=== PATIENT | male | born 1990 | race Caucasian/White ===

== ENCOUNTER 2017-10-04 17:56 | Emergency (ER) | payer OTHER ==
[~2017-10-04] VITALS: Ht 162.6 cm; Wt 50.0 kg
[~2017-10-04 17:56] MED LIST: AMYL1CAP63 PO; CLON0.5T4 PO; GABA-531 PO; INSLAN SQ; INSU100V SQ
[2017-10-04 18:12] LABS: GLUCOSE,POINT OF CARE 374 MG/DL (70-110)
[2017-10-04] MEDS ORDERED: AMLO-511 PO (18:12)
[2017-10-04] MEDS ORDERED: CEFTAROLINE 600 MG/D5W 250 ML IV ONE (19:00)
[2017-10-04] MEDS ORDERED: CLON1 PO (19:01)
[2017-10-04] MEDS ORDERED: GABA-533 PO (19:01)
[2017-10-04] MEDS ORDERED: ONDANSETRON HCL 4 MG/2 ML VIAL IVP ONE (19:15)
[2017-10-04] MEDS ORDERED: HYDROmorphone 2 MG/ML SYRINGE IVP ONE ×2 (19:15→20:45)
[2017-10-04 19:26] LABS: HEMATOCRIT 24.4 % (41-53); HEMOGLOBIN 7.9 g/dL (13.5-17.5); MEAN CORPUSCULAR HEMOGLOBIN 27.3 pg (26.0-34.0); MEAN CORPUSCULAR HGB CONC 32.1 G/dL (31.0-37.0); MEAN CORPUSCULAR VOLUME 85 fL (80-100); PLATELET COUNT (AUTO) 300 K/uL (150-450); RED BLOOD CELL COUNT(AUTO) 2.87 MIL/uL (4.50-5.90); RED CELL DISTRIBUTION WIDTH 14.2 % (11.5-14.5); WHITE BLOOD COUNT (AUTO) 20.4 K/uL (4.5-11.0)
[2017-10-04 19:38] LABS: ALBUMIN 2.2 g/dL (3.4-5.0); BILIRUBIN,TOTAL 0.2 mg/dL (0.1-1.0); CALCIUM, TOTAL 8.1 mg/dL (8.8-10.5); CREATININE 2.81 mg/dL (0.60-1.30); POTASSIUM 4.7 mmol/L (3.5-5.1)
[2017-10-04 19:46] LABS: BAND NEUTROPHILS % (MANUAL) 12 % (1-5); LYMPHOCYTES % (MANUAL) 2 % (22-44); TOTAL CELLS COUNTED 100
[2017-10-04 19:47] LABS: RBC MORPHOLOGY COMMENT NORMAL RBC MORPH
[2017-10-04] MEDS ORDERED: INSULIN REGULAR, HUMAN 100 UNITS/ML SQ ONE (20:00)
[2017-10-04] MEDS ORDERED: ONDANSETRON HCL 4 MG/2 ML VIAL IVP PRN ×2 (20:00→22:00)
[2017-10-04] MEDS ORDERED: ACETAMINOPHEN 325 MG TABLET PO PRN ×2 (20:00→22:00)
[2017-10-04] MEDS ORDERED: 0.9% SODIUM CHLORIDE 10 ML SYRINGE IVP PRN (20:00)
[2017-10-04] MEDS ORDERED: SODIUM CHLORIDE 0.9% 1,000 ML IV ONE ×2 (20:00→20:15)
[2017-10-04 21:27] LABS: GLUCOSE COMMENT 1 Doctor Notified; GLUCOSE,POINT OF CARE 346 MG/DL (70-110)
[2017-10-04] MEDS ORDERED: VANCOMYCIN HCL 1 GM/D5% WATER 200 ML IV ONE (21:30)
[2017-10-04] MEDS ORDERED: PIPERACILLIN/TAZO 3.375 GM/D5W 50 ML IV ONE (21:30)
[2017-10-04] MEDS ORDERED: ALBUTEROL SULFATE 2.5 MG/0.5 ML NEB SOLUTION NEB PRN (22:00)
[2017-10-04] MEDS ORDERED: HYDROmorphone 2 MG/ML SYRINGE IVP PRN (22:00)
[2017-10-04] MEDS ORDERED: MAGNESIUM HYDROXIDE SUSPENSION 30 ML UDCUP PO PRN (22:00)
[2017-10-04] MEDS ORDERED: INSULIN ASPART 100 UNITS/ML SQ PRN (22:00)
[2017-10-04] MEDS ORDERED: INSULIN DETEMIR 100 UNITS/ML SQ SCH (22:00)
[2017-10-04] MEDS ORDERED: DEXTROSE 50%-WATER 25 GM/50 ML SYRINGE IVP PRN (22:00)
[2017-10-04] MEDS ORDERED: SODIUM CHLORIDE 0.9% 1,000 ML IV SCH (22:15)
[2017-10-04 22:23] LABS: GLUCOSE,POINT OF CARE 210 MG/DL (70-110)
[2017-10-04] MEDS ORDERED: CLINDAMYCIN 600 MG/D5% WATER 50 ML IV ONE (23:30)
[2017-10-04] MEDS ORDERED: MEROPENEM IVP ONE (23:30)
[2017-10-04] MEDS ORDERED: MEROPENEM 1 GM in SODIUM CHLORIDE 0.9% 100 ML IV ONE (23:45)
[2017-10-05 00:23] LABS: GLUCOSE,POINT OF CARE 88 MG/DL (70-110)
[2017-10-05 01:45] VITALS: BP 138/72
[2017-10-05] MEDS ORDERED: HEPARIN SODIUM,PORCINE 5,000 UNITS/ML VIAL SQ SCH (09:00)
[2017-10-05] MEDS ORDERED: PANTOPRAZOLE SODIUM 40 MG DR TABLET PO SCH (09:00)
[2017-10-05] MEDS ORDERED: MULTIVITAMINS WITH MINERALS, THERAPEUTIC TABLET PO SCH (09:00)
[2017-10-05] MEDS ORDERED: DOCUSATE SODIUM 100 MG CAPSULE PO SCH (09:00)
== END 2017-10-05 01:54 | disposition short-term general hospital (02) ==
LOC: EMS 17:57 → UNDOADMIN 20:00 → 4E 20:00 → EMS 10-05 01:54
DX: L03.211 Cellulitis of face (principal); R11.0 Nausea; R13.10 Dysphagia, unspecified; E11.40 Type 2 diabetes mellitus with diabetic neuropathy, unspecified; Z79.4 Long term (current) use of insulin; Z88.5 Allergy status to narcotic agent
CPT/HCPCS: 36415; 70490; 80053; 82962; 85025; 87040; 96365; 96366; 96367; 96368; 96372; 96374; 96375; 96376; 99285; J0712; J1170; J1815 ×2; J2185; J2405; J2543; J3370; J3490; J7030; J7050

== ENCOUNTER 2017-11-23 16:13 | Emergency (ER) | payer OTHER ==
[~2017-11-23] VITALS: Ht 162.6 cm; Wt 50.0 kg
[~2017-11-23 16:13] MED LIST changes: +AMLO-511 PO; -AMYL1CAP63 PO; -CLON0.5T4 PO; +CLON1 PO; -GABA-531 PO; +GABA-533 PO
[2017-11-23 16:37] LABS: GLUCOSE,POINT OF CARE 467 MG/DL (70-110)
[2017-11-23] MEDS ORDERED: SODIUM CHLORIDE 0.9% 1,000 ML IV ONE ×2 (17:30)
[2017-11-23] MEDS ORDERED: AmLODIPine BESYLATE 5 MG TABLET PO ONE (17:30)
[2017-11-23] MEDS ORDERED: ONDANSETRON HCL 4 MG/2 ML VIAL IVP ONE (17:30)
[2017-11-23 18:00] LABS: BASOPHILS % (AUTO) 0.9 % (0.0-2.0); EOSINOPHILS % (AUTO) 0.1 % (1.0-6.0); HEMATOCRIT 28.9 % (41-53); HEMOGLOBIN 9.7 g/dL (13.5-17.5); LYMPHOCYTES # (AUTO) 0.8 K/uL (1.0-4.8); MEAN CORPUSCULAR HEMOGLOBIN 27.4 pg (26.0-34.0); MEAN CORPUSCULAR HGB CONC 33.4 G/dL (31.0-37.0); MEAN CORPUSCULAR VOLUME 82 fL (80-100); MONOCYTES # (AUTO) 0.4 K/uL (0.1-1.0); MONOCYTES % (AUTO) 6.5 % (2.0-9.0); NEUTROPHILS # (AUTO) 4.7 K/uL (1.8-7.7); NEUTROPHILS % (AUTO) 78.5 % (40.0-70.0); PLATELET COUNT (AUTO) 337 K/uL (150-450); RED BLOOD CELL COUNT(AUTO) 3.53 MIL/uL (4.50-5.90); RED CELL DISTRIBUTION WIDTH 14.3 % (11.5-14.5)
[2017-11-23 18:11] LABS: ALANINE AMINOTRANSFERASE 17 U/L (12-78); ALBUMIN 2.3 g/dL (3.4-5.0); ALKALINE PHOSPHATASE 210 U/L (46-116); ANION GAP 6 mmol/L (8-16); ASPARTATE AMINOTRANSFERASE 22 U/L (15-37); BILIRUBIN,TOTAL 0.2 mg/dL (0.1-1.0); CALCIUM, TOTAL 8.6 mg/dL (8.8-10.5); CARBON DIOXIDE 28 mmol/L (22-29); CHLORIDE 94 mmol/L (98-107); CREATININE 2.79 mg/dL (0.60-1.30); GLOMERULAR FILTR. RATE CALC 27 mL/min (>60); LIPASE 26 U/L (73-393); POTASSIUM 3.7 mmol/L (3.5-5.1); SODIUM SERUM 128 mmol/L (136-145); TOTAL PROTEIN, SERUM 7.9 g/dL (6.4-8.2); UREA NITROGEN, BLOOD 29 mg/dL (7-18)
[2017-11-23 18:14] LABS: GLUCOSE,RANDOM 440 mg/dL (70-110)
[2017-11-23 18:49] LABS: LACTIC ACID 2.5 mmol/L (0.4-2.0)
[2017-11-23] MEDS ORDERED: FentaNYL CITRATE-PF 100 MCG/2 ML VIAL IVP ONE (20:15)
[2017-11-23 20:16] LABS: APPEARANCE,URINE CLOUDY (CLEAR); BILIRUBIN,URINE NEGATIVE (NEGATIVE); GLUCOSE, URINE (UA) >=1000 mg/dL (NEGATIVE); KETONES,URINE NEGATIVE (NEGATIVE); LEUKOCYTE ESTERASE ,URINE TRACE (NEGATIVE); NITRATE,URINE NEGATIVE (NEGATIVE); OCCULT BLOOD,URINE MODERATE (NEGATIVE); PROTEIN,URINE SEE CONFIRM (NEGATIVE); UROBILINOGEN,URINE 0.2 mg/dL (<=1.0)
[2017-11-23 20:25] LABS: BACTERIA,URINE Few /HPF (None Seen); YEAST,URINE Many /HPF (None Seen)
[2017-11-23 20:27] LABS: SQUAMOUS EPITHELIAL CELL,UR Few /LPF (None Seen); SULFOSALICYLIC ACID,URINE 3+ (Negative)
[2017-11-23 20:45] LABS: CALCIUM, TOTAL 8.1 mg/dL (8.8-10.5); CREATININE 2.14 mg/dL (0.60-1.30); POTASSIUM 3.4 mmol/L (3.5-5.1)
[2017-11-23 20:51] VITALS: BP_DIAS 123
[2017-11-23 20:52] LABS: ALBUMIN 2.1 g/dL (3.4-5.0); BILIRUBIN,TOTAL 0.2 mg/dL (0.1-1.0); TOTAL PROTEIN, SERUM 7.2 g/dL (6.4-8.2)
[2017-11-23 20:53] LABS: LACTIC ACID 0.9 mmol/L (0.4-2.0)
[2017-11-23 20:57] LABS: GLUCOSE,POINT OF CARE 266 MG/DL (70-110)
[2017-11-23] MEDS ORDERED: CEPHALEXIN MONOHYDRATE 500 MG CAPSULE PO ONE (21:00)
[2017-11-23 21:17] VITALS: BP_SYST 188
== END 2017-11-23 21:34 | disposition home or self-care (01) ==
LOC: EMS 16:15
DX: E10.22 Type 1 diabetes mellitus with diabetic chronic kidney disease (principal); N18.9 Chronic kidney disease, unspecified; E10.65 Type 1 diabetes mellitus with hyperglycemia; N39.0 Urinary tract infection, site not specified; R03.0 Elevated blood-pressure reading, without diagnosis of hypertension; I95.9 Hypotension, unspecified; G47.00 Insomnia, unspecified; G62.9 Polyneuropathy, unspecified; Z88.5 Allergy status to narcotic agent; Z79.899 Other long term (current) drug therapy
CPT/HCPCS: 36415; 80053; 81001; 82948; 82962; 83605; 83690; 85025; 87086; 87106; 96374; 96375; 99284; J2405; J3010; J7030

== ENCOUNTER 2017-12-26 15:57 | Emergency (ER) | payer OTHER ==
[~2017-12-26] VITALS: Ht 162.6 cm; Wt 54.5 kg
[~2017-12-26 15:57] MED LIST changes: +HYDR-309 PO; +MIDO2.5T10 PO
[2017-12-26] MEDS ORDERED: LABETALOL HCL 5 MG/ML 20 ML VIAL IVP ONE (16:45)
[2017-12-26] MEDS ORDERED: DEXTROSE 5%-0.9% SODIUM CHL 1,000 ML IV ONE (16:45)
[2017-12-26] MEDS ORDERED: ONDANSETRON HCL 4 MG/2 ML VIAL IVP ONE (16:45)
[2017-12-26] MEDS ORDERED: AmLODIPine BESYLATE 5 MG TABLET PO ONE (16:45)
[2017-12-26] MEDS ORDERED: HydrALAZINE HCL 20 MG/ML VIAL IVP ONE (17:00)
[2017-12-26 17:06] LABS: BASOPHILS % (AUTO) 0.5 % (0.0-2.0); EOSINOPHILS % (AUTO) 0.4 % (1.0-6.0); HEMATOCRIT 32.8 % (41-53); HEMOGLOBIN 10.7 g/dL (13.5-17.5); LYMPHOCYTES # (AUTO) 0.8 K/uL (1.0-4.8); LYMPHOCYTES % (AUTO) 7.1 % (22.0-44.0); MEAN CORPUSCULAR HEMOGLOBIN 26.4 pg (26.0-34.0); MEAN CORPUSCULAR HGB CONC 32.6 G/dL (31.0-37.0); MEAN CORPUSCULAR VOLUME 81 fL (80-100); MONOCYTES # (AUTO) 0.4 K/uL (0.1-1.0); MONOCYTES % (AUTO) 3.5 % (2.0-9.0); NEUTROPHILS # (AUTO) 10.3 K/uL (1.8-7.7); PLATELET COUNT (AUTO) 199 K/uL (150-450); RED BLOOD CELL COUNT(AUTO) 4.05 MIL/uL (4.50-5.90); RED CELL DISTRIBUTION WIDTH 15.4 % (11.5-14.5)
[2017-12-26 17:13] LABS: CALCIUM, TOTAL 8.3 mg/dL (8.8-10.5); CREATININE 2.04 mg/dL (0.60-1.30); POTASSIUM 4.9 mmol/L (3.5-5.1)
[2017-12-26 17:19] LABS: ALBUMIN 2.1 g/dL (3.4-5.0); BILIRUBIN,TOTAL 0.2 mg/dL (0.1-1.0); TOTAL PROTEIN, SERUM 7.1 g/dL (6.4-8.2)
[2017-12-26 17:29] LABS: NEUTROPHILS % (AUTO) 88.5 % (40.0-70.0)
[2017-12-26] MEDS ORDERED: MORPHINE SULFATE 4 MG/ML SYRINGE IVP ONE (19:30)
[2017-12-26 19:39] VITALS: BP 146/99
== END 2017-12-26 19:51 | disposition home or self-care (01) ==
LOC: EMS 16:02
DX: R41.82 Altered mental status, unspecified (principal); E10.65 Type 1 diabetes mellitus with hyperglycemia; I12.9 Hypertensive chronic kidney disease with stage 1 through stage 4 chronic kidney disease, or unspecified chronic kidney disease; E10.22 Type 1 diabetes mellitus with diabetic chronic kidney disease; N18.9 Chronic kidney disease, unspecified; E11.40 Type 2 diabetes mellitus with diabetic neuropathy, unspecified; Z79.4 Long term (current) use of insulin; Z88.0 Allergy status to penicillin; Z91.14 Patient's other noncompliance with medication regimen
CPT/HCPCS: 36415; 80053; 85025; 93005; 96361; 96374; 96375; 99285; J0360; J2270; J2405; J3490; J7042

== ENCOUNTER 2018-01-02 11:57 | Emergency (ER) | payer OTHER ==
[~2018-01-02] VITALS: Ht 162.6 cm; Wt 54.5 kg
[2018-01-02 12:12] LABS: GLUCOSE,POINT OF CARE 98 MG/DL (70-110)
[2018-01-02 12:28] VITALS: BP 178/122
[2018-01-02 12:59] LABS: BASOPHILS % (AUTO) 0.8 % (0.0-2.0); EOSINOPHILS % (AUTO) 0.3 % (1.0-6.0); HEMATOCRIT 32.8 % (41-53); LYMPHOCYTES # (AUTO) 1.4 K/uL (1.0-4.8); MEAN CORPUSCULAR HEMOGLOBIN 26.7 pg (26.0-34.0); MEAN CORPUSCULAR HGB CONC 33.7 G/dL (31.0-37.0); MEAN CORPUSCULAR VOLUME 79 fL (80-100); MONOCYTES # (AUTO) 0.4 K/uL (0.1-1.0); MONOCYTES % (AUTO) 4.5 % (2.0-9.0); NEUTROPHILS # (AUTO) 6.2 K/uL (1.8-7.7); NEUTROPHILS % (AUTO) 77.4 % (40.0-70.0); PLATELET COUNT (AUTO) 405 K/uL (150-450); RED BLOOD CELL COUNT(AUTO) 4.14 MIL/uL (4.50-5.90); RED CELL DISTRIBUTION WIDTH 15.9 % (11.5-14.5)
[2018-01-02] MEDS ORDERED: IBUPROFEN 400 MG TABLET PO ONE (13:00)
[2018-01-02 13:09] LABS: CALCIUM, TOTAL 8.3 mg/dL (8.8-10.5); CREATININE 2.01 mg/dL (0.60-1.30); POTASSIUM 3.9 mmol/L (3.5-5.1)
[2018-01-02 13:10] LABS: ALBUMIN 2.3 g/dL (3.4-5.0); BILIRUBIN,TOTAL 0.2 mg/dL (0.1-1.0); TOTAL PROTEIN, SERUM 7.2 g/dL (6.4-8.2)
== END 2018-01-02 14:40 | disposition left against medical advice (07) ==
LOC: EMS 12:01
DX: R22.0 Localized swelling, mass and lump, head (principal); I12.9 Hypertensive chronic kidney disease with stage 1 through stage 4 chronic kidney disease, or unspecified chronic kidney disease; E11.22 Type 2 diabetes mellitus with diabetic chronic kidney disease; N18.9 Chronic kidney disease, unspecified; F32.9 Major depressive disorder, single episode, unspecified; Z88.5 Allergy status to narcotic agent; Z79.899 Other long term (current) drug therapy; Z79.4 Long term (current) use of insulin
CPT/HCPCS: 82948; 82962; 99284

== ENCOUNTER 2018-01-14 06:39 | Emergency (ER) | payer OTHER ==
[~2018-01-14] VITALS: Ht 165.1 cm; Wt 63.6 kg
[2018-01-14] MEDS ORDERED: GLUCAGON,HUMAN RECOMBINANT 1 MG VIAL ONE (06:50)
[2018-01-14] MEDS ORDERED: DEXTROSE 50%-WATER 25 GM/50 ML SYRINGE IVP ONE (07:00)
[2018-01-14 07:14] LABS: BASOPHILS % (AUTO) 0.7 % (0.0-2.0); EOSINOPHILS % (AUTO) 0.2 % (1.0-6.0); HEMATOCRIT 28.6 % (41-53); HEMOGLOBIN 9.4 g/dL (13.5-17.5); LYMPHOCYTES # (AUTO) 0.7 K/uL (1.0-4.8); LYMPHOCYTES % (AUTO) 8.3 % (22.0-44.0); MEAN CORPUSCULAR HEMOGLOBIN 26.8 pg (26.0-34.0); MEAN CORPUSCULAR HGB CONC 32.9 G/dL (31.0-37.0); MEAN CORPUSCULAR VOLUME 81 fL (80-100); MONOCYTES # (AUTO) 0.4 K/uL (0.1-1.0); MONOCYTES % (AUTO) 5.1 % (2.0-9.0); NEUTROPHILS # (AUTO) 7.6 K/uL (1.8-7.7); PLATELET COUNT (AUTO) 382 K/uL (150-450); RED BLOOD CELL COUNT(AUTO) 3.52 MIL/uL (4.50-5.90); RED CELL DISTRIBUTION WIDTH 16.3 % (11.5-14.5)
[2018-01-14 07:19] LABS: NEUTROPHILS % (AUTO) 85.7 % (40.0-70.0)
[2018-01-14 07:29] LABS: ANION GAP 7 mmol/L (8-16); CALCIUM, TOTAL 8.5 mg/dL (8.8-10.5); CARBON DIOXIDE 25 mmol/L (22-29); CHLORIDE 110 mmol/L (98-107); CREATININE 2.23 mg/dL (0.60-1.30); GLOMERULAR FILTR. RATE CALC 35 mL/min (>60); GLUCOSE,RANDOM 61 mg/dL (70-110); POTASSIUM 4.9 mmol/L (3.5-5.1); SODIUM SERUM 142 mmol/L (136-145); UREA NITROGEN, BLOOD 28 mg/dL (7-18)
[2018-01-14 07:34] LABS: ALANINE AMINOTRANSFERASE 28 U/L (12-78); ALBUMIN 1.8 g/dL (3.4-5.0); ALKALINE PHOSPHATASE 229 U/L (46-116); ASPARTATE AMINOTRANSFERASE 23 U/L (15-37); BILIRUBIN,TOTAL 0.2 mg/dL (0.1-1.0); LIPASE 28 U/L (73-393); TOTAL PROTEIN, SERUM 6.5 g/dL (6.4-8.2)
[2018-01-14 07:35] LABS: AMPHET/METH SCREEN,URINE NEGATIVE (NEGATIVE); BARBITURATE SCREEN, URINE NEGATIVE (NEGATIVE); BENZODIAZEPINES SCREEN,URINE NEGATIVE (NEGATIVE); CANNABINOID SCREEN,URINE NEGATIVE (NEGATIVE); COCAINE SCREEN,URINE NEGATIVE (NEGATIVE); METHADONE SCREEN, URINE NEGATIVE (NEGATIVE); OPIATE SCREEN,URINE POSITIVE (NEGATIVE)
[2018-01-14 07:36] LABS: PHENCYCLIDINE SCREEN,URINE NEGATIVE (NEGATIVE)
[2018-01-14] MEDS ORDERED: ONDANSETRON HCL 4 MG/2 ML VIAL IVP ONE (07:45)
[2018-01-14] MEDS ORDERED: KETOROLAC TROMETHAMINE 30 MG/ML VIAL IVP ONE (07:45)
[2018-01-14 08:48] LABS: GLUCOSE,POINT OF CARE 191 MG/DL (70-110)
[2018-01-14 08:48] LABS: GLUCOSE,POINT OF CARE 181 MG/DL (70-110)
[2018-01-14] MEDS ORDERED: OxyCODONE HCL/ACETAMINOPHEN 5-325 MG TABLET PO ONE (09:30)
[2018-01-14 10:02] LABS: GLUCOSE,POINT OF CARE 190 MG/DL (70-110)
[2018-01-14 11:12] LABS: GLUCOSE,POINT OF CARE 110 MG/DL (70-110)
[2018-01-14 11:22] VITALS: BP 191/110
== END 2018-01-14 12:23 | disposition home or self-care (01) ==
LOC: EMS 06:40
DX: E11.649 Type 2 diabetes mellitus with hypoglycemia without coma (principal); R41.82 Altered mental status, unspecified; N28.9 Disorder of kidney and ureter, unspecified; I10 Essential (primary) hypertension; R10.9 Unspecified abdominal pain; G89.29 Other chronic pain; Z79.4 Long term (current) use of insulin; Z88.5 Allergy status to narcotic agent
CPT/HCPCS: 36415; 80053; 80307; 82962; 83690; 85025; 96374; 96375; 99284; G0480; J1885; J2405; J1610

== ENCOUNTER 2018-04-07 23:30 | Emergency (ER) | payer OTHER ==
[~2018-04-07] VITALS: Ht 162.6 cm; Wt 56.8 kg
[~2018-04-07 23:30] MED LIST changes: -MIDO2.5T10 PO; +MIDO2.5T15 PO
[2018-04-07] MEDS ORDERED: INSLAN SQ (23:43)
[2018-04-07 23:53] LABS: GLUCOSE,POINT OF CARE 246 MG/DL (70-110)
[2018-04-08 00:49] VITALS: BP 137/98
[2018-04-08] MEDS ORDERED: OxyCODONE HCL/ACETAMINOPHEN 5-325 MG TABLET PO ONE (02:00)
== END 2018-04-08 02:33 | disposition home or self-care (01) ==
LOC: EMS 23:32
DX: N50.89 Other specified disorders of the male genital organs (principal); N50.82 Scrotal pain; F32.9 Major depressive disorder, single episode, unspecified; E11.9 Type 2 diabetes mellitus without complications; I10 Essential (primary) hypertension; Z79.4 Long term (current) use of insulin; Z79.899 Other long term (current) drug therapy; Z88.6 Allergy status to analgesic agent
CPT/HCPCS: 76870; 99284

== ENCOUNTER 2018-04-08 15:18 | Inpatient (IN) | payer OTHER ==
[~2018-04-08] VITALS: Ht 162.6 cm; Wt 51.3 kg
[2018-04-08 15:28] LABS: GLUCOSE,POINT OF CARE 555 MG/DL (70-110)
[2018-04-08] MEDS ORDERED: TraMADol HCL 50 MG TABLET PO ONE (16:15)
[2018-04-08 16:28] LABS: BASOPHILS % (AUTO) 0.7 % (0.0-2.0); EOSINOPHILS % (AUTO) 0.6 % (1.0-6.0); HEMATOCRIT 22.4 % (41-53); HEMOGLOBIN 7.4 g/dL (13.5-17.5); LYMPHOCYTES # (AUTO) 0.8 K/uL (1.0-4.8); LYMPHOCYTES % (AUTO) 14.8 % (22.0-44.0); MEAN CORPUSCULAR HEMOGLOBIN 29.2 pg (26.0-34.0); MEAN CORPUSCULAR VOLUME 89 fL (80-100); MONOCYTES # (AUTO) 0.4 K/uL (0.1-1.0); MONOCYTES % (AUTO) 8.1 % (2.0-9.0); NEUTROPHILS # (AUTO) 4.1 K/uL (1.8-7.7); NEUTROPHILS % (AUTO) 75.8 % (40.0-70.0); PLATELET COUNT (AUTO) 328 K/uL (150-450); RED BLOOD CELL COUNT(AUTO) 2.53 MIL/uL (4.50-5.90); RED CELL DISTRIBUTION WIDTH 14.6 % (11.5-14.5)
[2018-04-08 16:34] LABS: PROTHROMBIN TIME 10.2 SEC (9.4-11.6)
[2018-04-08 16:57] LABS: ALBUMIN 1.9 g/dL (3.4-5.0); BILIRUBIN,TOTAL 0.1 mg/dL (0.1-1.0); CALCIUM, TOTAL 7.4 mg/dL (8.8-10.5); CKMB RELATIVE INDEX 5.7 % (0.0-4.0); CREATINE KINASE MB 5.5 ng/mL (0-5); CREATININE 2.65 mg/dL (0.60-1.30); POTASSIUM 5.4 mmol/L (3.5-5.1); TOTAL PROTEIN, SERUM 6.4 g/dL (6.4-8.2)
[2018-04-08] MEDS ORDERED: INSULIN REGULAR, HUMAN 100 UNITS/ML IVP ONE (17:30)
[2018-04-08] MEDS ORDERED: SODIUM CHLORIDE 0.9% 250 ML IV ONE (18:10)
[2018-04-08] MEDS ORDERED: KETOROLAC TROMETHAMINE 30 MG/ML VIAL IVP ONE (18:15)
[2018-04-08] MEDS ORDERED: CloNIDine HCL 0.2 MG TABLET PO ONE (18:45)
[2018-04-08] MEDS ORDERED: HYDROCODONE/ACETAMINOPHEN 5-325 MG TABLET PO ONE (18:45)
[2018-04-08] MEDS ORDERED: 0.9% SODIUM CHLORIDE 10 ML SYRINGE IVP PRN ×2 (19:30→23:30)
[2018-04-08] MEDS ORDERED: ONDANSETRON HCL 4 MG/2 ML VIAL IVP PRN (19:30)
[2018-04-08] MEDS ORDERED: ACETAMINOPHEN 325 MG TABLET PO PRN ×2 (19:30→23:30)
[2018-04-08] MEDS ORDERED: FentaNYL CITRATE-PF 100 MCG/2 ML VIAL IVP ONE (19:45)
[2018-04-08] MEDS ORDERED: FentaNYL CITRATE-PF 100 MCG/2 ML VIAL IVP PRN (21:45)
[2018-04-08 22:30] VITALS: BP 149/101
[2018-04-08] MEDS ORDERED: ZOLPIDEM TARTRATE 5 MG TABLET PO PRN (23:30)
[2018-04-09] MEDS ORDERED: DEXTROSE 50%-WATER 25 GM/50 ML SYRINGE IVP PRN ×2 (00:15→14:00)
[2018-04-09] MEDS ORDERED: INSULIN LISPRO 100 UNITS/ML SQ PRN ×2 (00:15→13:45)
[2018-04-09] MEDS: FentaNYL CITRATE-PF 100 MCG/2 ML VIAL IVP PRN ×5 (02:43→20:46)
[2018-04-09 04:19] VITALS: BP 132/80
[2018-04-09 06:43] LABS: BASOPHILS % (AUTO) 0.8 % (0.0-2.0); EOSINOPHILS % (AUTO) 1.2 % (1.0-6.0); HEMATOCRIT 21.9 % (41-53); HEMOGLOBIN 7.6 g/dL (13.5-17.5); LYMPHOCYTES # (AUTO) 1.4 K/uL (1.0-4.8); LYMPHOCYTES % (AUTO) 19.7 % (22.0-44.0); MEAN CORPUSCULAR HEMOGLOBIN 29.7 pg (26.0-34.0); MEAN CORPUSCULAR HGB CONC 34.6 G/dL (31.0-37.0); MEAN CORPUSCULAR VOLUME 86 fL (80-100); MONOCYTES # (AUTO) 0.6 K/uL (0.1-1.0); MONOCYTES % (AUTO) 9.1 % (2.0-9.0); NEUTROPHILS # (AUTO) 4.9 K/uL (1.8-7.7); NEUTROPHILS % (AUTO) 69.2 % (40.0-70.0); PLATELET COUNT (AUTO) 346 K/uL (150-450); RED BLOOD CELL COUNT(AUTO) 2.55 MIL/uL (4.50-5.90)
[2018-04-09 07:01] LABS: ALBUMIN 1.8 g/dL (3.4-5.0); BILIRUBIN,TOTAL 0.2 mg/dL (0.1-1.0); CALCIUM, TOTAL 7.8 mg/dL (8.8-10.5); CREATININE 2.58 mg/dL (0.60-1.30); MAGNESIUM 2.1 mg/dL (1.80-2.40); POTASSIUM 5.4 mmol/L (3.5-5.1); TOTAL PROTEIN, SERUM 6.1 g/dL (6.4-8.2)
[2018-04-09 07:33] VITALS: BP 158/108
[2018-04-09] MEDS: PANTOPRAZOLE SODIUM 40 MG DR TABLET PO SCH (08:52)
[2018-04-09] MEDS: AmLODIPine BESYLATE 5 MG TABLET PO SCH (08:52)
[2018-04-09] MEDS: GABAPENTIN 400 MG CAPSULE PO SCH ×3 (08:52→20:46)
[2018-04-09] MEDS: MIDODRINE HCL 2.5 MG TABLET PO SCH ×2 (08:53→20:29)
[2018-04-09] MEDS: INSULIN GLARGINE,HUM.REC.ANLOG 100 UNITS/ML SQ SCH ×2 (08:55→20:48)
[2018-04-09 09:24] LABS: GLUCOMETER DEV NAME(LOC) 5N 2S; GLUCOSE,POINT OF CARE 40 MG/DL (70-110)
[2018-04-09 09:24] LABS: GLUCOMETER DEV NAME(LOC) 5N 2S; GLUCOSE,POINT OF CARE 122 MG/DL (70-110)
[2018-04-09 09:24] LABS: GLUCOMETER DEV NAME(LOC) 5N 2S; GLUCOSE,POINT OF CARE 211 MG/DL (70-110)
[2018-04-09 09:24] LABS: GLUCOMETER DEV NAME(LOC) 5N 1P; GLUCOSE,POINT OF CARE 112 MG/DL (70-110)
[2018-04-09 11:20] VITALS: BP 140/92
[2018-04-09 15:30] VITALS: BP 142/92
[2018-04-09] MEDS: INSULIN LISPRO 100 UNITS/ML SQ PRN (17:32)
[2018-04-09 18:50] LABS: GLUCOMETER DEV NAME(LOC) 5N 2S; GLUCOSE,POINT OF CARE 179 MG/DL (70-110)
[2018-04-09 18:50] LABS: GLUCOMETER DEV NAME(LOC) 5N 2S; GLUCOSE,POINT OF CARE 169 MG/DL (70-110)
[2018-04-09 19:42] VITALS: BP 145/91
[2018-04-09 22:37] LABS: APPEARANCE,URINE CLEAR (CLEAR); BILIRUBIN,URINE NEGATIVE (NEGATIVE); GLUCOSE, URINE (UA) 100 mg/dL (NEGATIVE); KETONES,URINE NEGATIVE (NEGATIVE); LEUKOCYTE ESTERASE ,URINE SMALL (NEGATIVE); NITRATE,URINE NEGATIVE (NEGATIVE); OCCULT BLOOD,URINE MODERATE (NEGATIVE); PROTEIN,URINE POS 1+ (NEGATIVE); UROBILINOGEN,URINE 0.2 mg/dL (<=1.0)
[2018-04-09 22:38] LABS: CREATININE,URINE RANDOM 36.5 mg/dL (30.0-125.0); SODIUM,URINE RANDOM 95 mmol/l (20-110); UREA NITROGEN,URINE RANDOM 297 mg/dL (350-1000)
[2018-04-09 23:04] LABS: GLUCOMETER DEV NAME(LOC) 5N 1P; GLUCOSE,POINT OF CARE 133 MG/DL (70-110)
[2018-04-10] VITALS (14 sets, daily range): BP systolic 135–196; BP diastolic 88–127
[2018-04-10] MEDS: FentaNYL CITRATE-PF 100 MCG/2 ML VIAL IVP PRN ×3 (01:13→09:37)
[2018-04-10 01:44] LABS: BACTERIA,URINE Few /HPF (None Seen); RBC,URINE 0-2 /HPF (0-2)
[2018-04-10 01:45] LABS: SQUAMOUS EPITHELIAL CELL,UR Few /LPF (None Seen)
[2018-04-10] MEDS: INSULIN LISPRO 100 UNITS/ML SQ PRN ×3 (05:42→21:48)
[2018-04-10 06:18] LABS: CALCIUM, TOTAL 7.4 mg/dL (8.8-10.5); CREATININE 2.7 mg/dL (0.60-1.30); MAGNESIUM 2.1 mg/dL (1.80-2.40)
[2018-04-10 06:20] LABS: BASOPHILS % (AUTO) 0.5 % (0.0-2.0); HEMATOCRIT 21.3 % (41-53); HEMOGLOBIN 7.3 g/dL (13.5-17.5); LYMPHOCYTES # (AUTO) 0.9 K/uL (1.0-4.8); MEAN CORPUSCULAR HEMOGLOBIN 29.7 pg (26.0-34.0); MEAN CORPUSCULAR HGB CONC 34.3 G/dL (31.0-37.0); MEAN CORPUSCULAR VOLUME 87 fL (80-100); MONOCYTES # (AUTO) 0.8 K/uL (0.1-1.0); MONOCYTES % (AUTO) 9.1 % (2.0-9.0); NEUTROPHILS # (AUTO) 6.9 K/uL (1.8-7.7); NEUTROPHILS % (AUTO) 79.4 % (40.0-70.0); PLATELET COUNT (AUTO) 368 K/uL (150-450); RED BLOOD CELL COUNT(AUTO) 2.46 MIL/uL (4.50-5.90); RED CELL DISTRIBUTION WIDTH 14.6 % (11.5-14.5)
[2018-04-10 07:17] LABS: POTASSIUM 6.9 mmol/L (3.5-5.1)
[2018-04-10] MEDS ORDERED: SODIUM POLYSTYRENE SULFONATE 15 GM/60 ML SUSPENSION BOTTLE PO ONE (07:45)
[2018-04-10] MEDS: GABAPENTIN 400 MG CAPSULE PO SCH ×3 (08:06→21:42)
[2018-04-10] MEDS: PANTOPRAZOLE SODIUM 40 MG DR TABLET PO SCH (08:06)
[2018-04-10] MEDS: MIDODRINE HCL 2.5 MG TABLET PO SCH (08:06)
[2018-04-10] MEDS: AMYLASE/LIPASE/PROTEASE 30/6/19 MU DR CAPSULE PO SCH ×3 (08:06→16:42)
[2018-04-10] MEDS: AmLODIPine BESYLATE 5 MG TABLET PO SCH (08:07)
[2018-04-10] MEDS: INSULIN GLARGINE,HUM.REC.ANLOG 100 UNITS/ML SQ SCH (08:09)
[2018-04-10] MEDS: ONDANSETRON HCL 4 MG/2 ML VIAL IVP PRN ×2 (08:54→15:54)
[2018-04-10 10:28] LABS: GLUCOSE,POINT OF CARE 219 MG/DL (70-110)
[2018-04-10 11:23] LABS: GLUCOMETER DEV NAME(LOC) 5N 1P; GLUCOSE,POINT OF CARE 81 MG/DL (70-110)
[2018-04-10 11:55] LABS: GLUCOMETER DEV NAME(LOC) 5N 1P; GLUCOSE,POINT OF CARE 73 MG/DL (70-110)
[2018-04-10] MEDS ORDERED: SODIUM POLYSTYRENE SULFONATE 15 GM/60 ML SUSPENSION BOTTLE PR ONE (12:45)
[2018-04-10] MEDS ORDERED: MORPHINE SULFATE 4 MG/ML SYRINGE IVP PRN (12:45)
[2018-04-10] MEDS ORDERED: HYDROmorphone 2 MG/ML SYRINGE IVP PRN (12:45)
[2018-04-10] MEDS: VITAMIN B COMP/VIT C/FOLIC ACID CAPSULE PO SCH (13:26)
[2018-04-10] MEDS ORDERED: SODIUM CHLORIDE 0.9% 250 ML IV ONE (15:52)
[2018-04-10] MEDS: HYDROmorphone 2 MG/ML SYRINGE IVP PRN ×2 (17:39→21:44)
[2018-04-10] MEDS ORDERED: FUROSEMIDE 40 MG/4 ML VIAL IVP ONE (21:15)
[2018-04-11] MEDS: HYDROmorphone 2 MG/ML SYRINGE IVP PRN ×5 (01:45→19:55)
[2018-04-11 03:18] LABS: GLUCOMETER DEV NAME(LOC) 5N 1P; GLUCOSE,POINT OF CARE 316 MG/DL (70-110)
[2018-04-11 03:18] LABS: GLUCOMETER DEV NAME(LOC) 5N 1P; GLUCOSE,POINT OF CARE 342 MG/DL (70-110)
[2018-04-11 05:48] VITALS: BP 196/127
[2018-04-11] MEDS: ONDANSETRON HCL 4 MG/2 ML VIAL IVP PRN ×2 (05:53→18:31)
[2018-04-11] MEDS ORDERED: LABETALOL HCL 5 MG/ML 20 ML VIAL IVP ONE (06:00)
[2018-04-11 06:52] LABS: BASOPHILS % (AUTO) 0.5 % (0.0-2.0); EOSINOPHILS % (AUTO) 1.1 % (1.0-6.0); HEMATOCRIT 24.3 % (41-53); HEMOGLOBIN 8.5 g/dL (13.5-17.5); LYMPHOCYTES # (AUTO) 1.1 K/uL (1.0-4.8); LYMPHOCYTES % (AUTO) 15.1 % (22.0-44.0); MEAN CORPUSCULAR HEMOGLOBIN 29.7 pg (26.0-34.0); MEAN CORPUSCULAR HGB CONC 34.8 G/dL (31.0-37.0); MEAN CORPUSCULAR VOLUME 85 fL (80-100); MONOCYTES # (AUTO) 0.8 K/uL (0.1-1.0); MONOCYTES % (AUTO) 10.5 % (2.0-9.0); NEUTROPHILS # (AUTO) 5.4 K/uL (1.8-7.7); NEUTROPHILS % (AUTO) 72.8 % (40.0-70.0); PLATELET COUNT (AUTO) 377 K/uL (150-450); RED BLOOD CELL COUNT(AUTO) 2.85 MIL/uL (4.50-5.90); RED CELL DISTRIBUTION WIDTH 14.4 % (11.5-14.5)
[2018-04-11 07:04] LABS: POTASSIUM 5.8 mmol/L (3.5-5.1)
[2018-04-11] MEDS: GABAPENTIN 400 MG CAPSULE PO SCH ×3 (07:58→19:55)
[2018-04-11] MEDS: AMYLASE/LIPASE/PROTEASE 30/6/19 MU DR CAPSULE PO SCH ×3 (07:58→16:12)
[2018-04-11] MEDS: PANTOPRAZOLE SODIUM 40 MG DR TABLET PO SCH (07:58)
[2018-04-11] MEDS: VITAMIN B COMP/VIT C/FOLIC ACID CAPSULE PO SCH (07:58)
[2018-04-11] MEDS: AmLODIPine BESYLATE 5 MG TABLET PO SCH (07:58)
[2018-04-11 08:40] VITALS: BP 144/102
[2018-04-11 11:19] LABS: BASOPHILS % (AUTO) 0.4 % (0.0-2.0); EOSINOPHILS % (AUTO) 0.4 % (1.0-6.0); HEMOGLOBIN 8.8 g/dL (13.5-17.5); LYMPHOCYTES % (AUTO) 10.7 % (22.0-44.0); MEAN CORPUSCULAR HEMOGLOBIN 29.2 pg (26.0-34.0); MEAN CORPUSCULAR HGB CONC 33.9 G/dL (31.0-37.0); MEAN CORPUSCULAR VOLUME 86 fL (80-100); MONOCYTES # (AUTO) 0.7 K/uL (0.1-1.0); MONOCYTES % (AUTO) 7.2 % (2.0-9.0); NEUTROPHILS # (AUTO) 7.6 K/uL (1.8-7.7); NEUTROPHILS % (AUTO) 81.3 % (40.0-70.0); PLATELET COUNT (AUTO) 405 K/uL (150-450); RED BLOOD CELL COUNT(AUTO) 3.02 MIL/uL (4.50-5.90); RED CELL DISTRIBUTION WIDTH 14.3 % (11.5-14.5)
[2018-04-11 11:25] LABS: CALCIUM, TOTAL 7.5 mg/dL (8.8-10.5); CREATININE 2.66 mg/dL (0.60-1.30)
[2018-04-11 11:34] LABS: POTASSIUM 6.5 mmol/L (3.5-5.1)
[2018-04-11 11:35] VITALS: BP 170/112
[2018-04-11] MEDS ORDERED: SODIUM POLYSTYRENE SULFONATE 15 GM/60 ML SUSPENSION BOTTLE PO ONE (11:45)
[2018-04-11] MEDS ORDERED: AmLODIPine BESYLATE 5 MG TABLET PO ONE (12:00)
[2018-04-11] MEDS: TERAZOSIN HCL 5 MG CAPSULE PO SCH (12:35)
[2018-04-11] MEDS: INSULIN LISPRO 100 UNITS/ML SQ PRN ×3 (12:41→21:25)
[2018-04-11 14:38] LABS: GLUCOMETER DEV NAME(LOC) 5N 2S; GLUCOSE,POINT OF CARE 243 MG/DL (70-110)
[2018-04-11 14:39] LABS: GLUCOMETER DEV NAME(LOC) 5N 2S; GLUCOSE,POINT OF CARE 342 MG/DL (70-110)
[2018-04-11 15:42] VITALS: BP 128/80
[2018-04-11 17:53] LABS: GLUCOMETER DEV NAME(LOC) 5N 1P; GLUCOSE,POINT OF CARE 82 MG/DL (70-110)
[2018-04-11 19:28] VITALS: BP 131/82
[2018-04-11 23:12] VITALS: BP 132/85
[2018-04-12] VITALS (7 sets, daily range): BP systolic 141–169; BP diastolic 97–111
[2018-04-12] MEDS: HYDROmorphone 2 MG/ML SYRINGE IVP PRN ×6 (00:16→21:56)
[2018-04-12 06:49] LABS: BASOPHILS % (AUTO) 0.5 % (0.0-2.0); EOSINOPHILS % (AUTO) 1.4 % (1.0-6.0); HEMOGLOBIN 8.2 g/dL (13.5-17.5); LYMPHOCYTES # (AUTO) 1.2 K/uL (1.0-4.8); LYMPHOCYTES % (AUTO) 15.6 % (22.0-44.0); MEAN CORPUSCULAR HEMOGLOBIN 29.7 pg (26.0-34.0); MEAN CORPUSCULAR HGB CONC 34.3 G/dL (31.0-37.0); MEAN CORPUSCULAR VOLUME 87 fL (80-100); MONOCYTES # (AUTO) 0.7 K/uL (0.1-1.0); MONOCYTES % (AUTO) 8.7 % (2.0-9.0); NEUTROPHILS # (AUTO) 5.7 K/uL (1.8-7.7); NEUTROPHILS % (AUTO) 73.8 % (40.0-70.0); PLATELET COUNT (AUTO) 345 K/uL (150-450); RED BLOOD CELL COUNT(AUTO) 2.77 MIL/uL (4.50-5.90); RED CELL DISTRIBUTION WIDTH 14.6 % (11.5-14.5)
[2018-04-12 07:20] LABS: ALBUMIN 1.7 g/dL (3.4-5.0); BILIRUBIN,TOTAL 0.2 mg/dL (0.1-1.0); CALCIUM, TOTAL 7.6 mg/dL (8.8-10.5); CREATININE 2.65 mg/dL (0.60-1.30); MAGNESIUM 1.9 mg/dL (1.80-2.40); PHOSPHORUS 6.3 mg/dL (2.5-4.9)
[2018-04-12 07:37] LABS: POTASSIUM 6.8 mmol/L (3.5-5.1)
[2018-04-12 07:38] LABS: GLUCOMETER DEV NAME(LOC) 5N 1P; GLUCOSE,POINT OF CARE 158 MG/DL (70-110)
[2018-04-12] MEDS: AMYLASE/LIPASE/PROTEASE 30/6/19 MU DR CAPSULE PO SCH ×3 (08:23→17:11)
[2018-04-12] MEDS: TERAZOSIN HCL 5 MG CAPSULE PO SCH (08:23)
[2018-04-12] MEDS: PANTOPRAZOLE SODIUM 40 MG DR TABLET PO SCH (08:23)
[2018-04-12] MEDS: AmLODIPine BESYLATE 10 MG TABLET PO SCH (08:24)
[2018-04-12] MEDS: VITAMIN B COMP/VIT C/FOLIC ACID CAPSULE PO SCH (08:24)
[2018-04-12] MEDS: GABAPENTIN 400 MG CAPSULE PO SCH ×3 (08:25→21:55)
[2018-04-12] MEDS ORDERED: SODIUM POLYSTYRENE SULFONATE 15 GM/60 ML SUSPENSION BOTTLE PO ONE (08:45)
[2018-04-12] MEDS: INSULIN LISPRO 100 UNITS/ML SQ PRN ×2 (12:04→21:56)
[2018-04-12] MEDS: ONDANSETRON HCL 4 MG/2 ML VIAL IVP PRN (21:55)
[2018-04-13 00:01] VITALS: BP 160/111
[2018-04-13] MEDS: HYDROmorphone 2 MG/ML SYRINGE IVP PRN ×5 (02:04→20:11)
[2018-04-13 05:06] VITALS: BP 145/105
[2018-04-13] MEDS: INSULIN LISPRO 100 UNITS/ML SQ PRN ×4 (06:08→21:07)
[2018-04-13 06:58] LABS: BASOPHILS % (AUTO) 0.8 % (0.0-2.0); EOSINOPHILS % (AUTO) 1.5 % (1.0-6.0); HEMATOCRIT 25.5 % (41-53); HEMOGLOBIN 8.6 g/dL (13.5-17.5); LYMPHOCYTES # (AUTO) 0.9 K/uL (1.0-4.8); LYMPHOCYTES % (AUTO) 14.6 % (22.0-44.0); MEAN CORPUSCULAR HEMOGLOBIN 29.5 pg (26.0-34.0); MEAN CORPUSCULAR HGB CONC 33.8 G/dL (31.0-37.0); MEAN CORPUSCULAR VOLUME 87 fL (80-100); MONOCYTES # (AUTO) 0.5 K/uL (0.1-1.0); NEUTROPHILS # (AUTO) 4.3 K/uL (1.8-7.7); NEUTROPHILS % (AUTO) 74.1 % (40.0-70.0); PLATELET COUNT (AUTO) 341 K/uL (150-450); RED BLOOD CELL COUNT(AUTO) 2.92 MIL/uL (4.50-5.90); RED CELL DISTRIBUTION WIDTH 14.9 % (11.5-14.5)
[2018-04-13 07:27] LABS: GLUCOMETER DEV NAME(LOC) 5N 2S; GLUCOSE,POINT OF CARE 431 MG/DL (70-110)
[2018-04-13 07:27] LABS: GLUCOMETER DEV NAME(LOC) 5N 2S; GLUCOSE,POINT OF CARE 495 MG/DL (70-110)
[2018-04-13 07:27] LABS: GLUCOMETER DEV NAME(LOC) 5N 2S; GLUCOSE,POINT OF CARE 247 MG/DL (70-110)
[2018-04-13 07:28] LABS: GLUCOMETER DEV NAME(LOC) 5N 1P; GLUCOSE,POINT OF CARE 286 MG/DL (70-110)
[2018-04-13 07:28] LABS: GLUCOMETER DEV NAME(LOC) 5N 2S; GLUCOSE,POINT OF CARE 84 MG/DL (70-110)
[2018-04-13 07:28] LABS: GLUCOMETER DEV NAME(LOC) 5N 1P; GLUCOSE,POINT OF CARE 397 MG/DL (70-110)
[2018-04-13 07:28] LABS: GLUCOMETER DEV NAME(LOC) 5N 1P; GLUCOSE,POINT OF CARE 258 MG/DL (70-110)
[2018-04-13 07:30] VITALS: BP 168/114
[2018-04-13] MEDS: GABAPENTIN 400 MG CAPSULE PO SCH ×3 (08:41→20:13)
[2018-04-13] MEDS: VITAMIN B COMP/VIT C/FOLIC ACID CAPSULE PO SCH (08:41)
[2018-04-13] MEDS: AMYLASE/LIPASE/PROTEASE 30/6/19 MU DR CAPSULE PO SCH ×3 (08:41→16:40)
[2018-04-13] MEDS: AmLODIPine BESYLATE 10 MG TABLET PO SCH (08:42)
[2018-04-13] MEDS: TERAZOSIN HCL 5 MG CAPSULE PO SCH (08:42)
[2018-04-13] MEDS: PANTOPRAZOLE SODIUM 40 MG DR TABLET PO SCH (08:42)
[2018-04-13 09:13] LABS: CALCIUM, TOTAL 7.7 mg/dL (8.8-10.5); CREATININE 2.89 mg/dL (0.60-1.30)
[2018-04-13 09:19] LABS: POTASSIUM 6.7 mmol/L (3.5-5.1)
[2018-04-13 11:20] VITALS: BP 143/97
[2018-04-13 16:06] VITALS: BP 159/111
[2018-04-13] MEDS: ONDANSETRON HCL 4 MG/2 ML VIAL IVP PRN (18:09)
[2018-04-13 19:48] VITALS: BP 145/102
[2018-04-14] MEDS: HYDROmorphone 2 MG/ML SYRINGE IVP PRN ×4 (00:11→12:26)
[2018-04-14 00:40] VITALS: BP 149/106
[2018-04-14] MEDS ORDERED: SODIUM POLYSTYRENE SULFONATE 15 GM/60 ML SUSPENSION BOTTLE PO ONE ×2 (03:45→09:45)
[2018-04-14 04:23] VITALS: BP 148/109
[2018-04-14] MEDS: INSULIN LISPRO 100 UNITS/ML SQ PRN ×2 (06:18→12:37)
[2018-04-14 07:12] VITALS: BP 158/104
[2018-04-14] MEDS: VITAMIN B COMP/VIT C/FOLIC ACID CAPSULE PO SCH (08:10)
[2018-04-14] MEDS: TERAZOSIN HCL 5 MG CAPSULE PO SCH (08:10)
[2018-04-14] MEDS: AmLODIPine BESYLATE 10 MG TABLET PO SCH (08:10)
[2018-04-14] MEDS: PANTOPRAZOLE SODIUM 40 MG DR TABLET PO SCH (08:10)
[2018-04-14] MEDS: AMYLASE/LIPASE/PROTEASE 30/6/19 MU DR CAPSULE PO SCH ×3 (08:10→12:27)
[2018-04-14] MEDS: GABAPENTIN 400 MG CAPSULE PO SCH (08:10)
[2018-04-14 08:24] LABS: BASOPHILS % (AUTO) 0.7 % (0.0-2.0); EOSINOPHILS % (AUTO) 1.2 % (1.0-6.0); HEMATOCRIT 23.2 % (41-53); LYMPHOCYTES # (AUTO) 1.3 K/uL (1.0-4.8); MEAN CORPUSCULAR HEMOGLOBIN 29.4 pg (26.0-34.0); MEAN CORPUSCULAR HGB CONC 34.6 G/dL (31.0-37.0); MEAN CORPUSCULAR VOLUME 85 fL (80-100); MONOCYTES # (AUTO) 0.8 K/uL (0.1-1.0); NEUTROPHILS # (AUTO) 5.6 K/uL (1.8-7.7); NEUTROPHILS % (AUTO) 72.1 % (40.0-70.0); PLATELET COUNT (AUTO) 347 K/uL (150-450); RED BLOOD CELL COUNT(AUTO) 2.74 MIL/uL (4.50-5.90); RED CELL DISTRIBUTION WIDTH 14.4 % (11.5-14.5)
[2018-04-14 08:41] LABS: CALCIUM, TOTAL 7.5 mg/dL (8.8-10.5); CREATININE 2.73 mg/dL (0.60-1.30); POTASSIUM 5.3 mmol/L (3.5-5.1)
[2018-04-14] MEDS ORDERED: INSULIN GLARGINE,HUM.REC.ANLOG 100 UNITS/ML SQ SCH (09:00)
[2018-04-14 10:19] LABS: GLUCOMETER DEV NAME(LOC) 5N 1P; GLUCOSE,POINT OF CARE 281 MG/DL (70-110)
[2018-04-14 10:19] LABS: GLUCOMETER DEV NAME(LOC) 5N 1P; GLUCOSE,POINT OF CARE 410 MG/DL (70-110)
[2018-04-14 10:19] LABS: GLUCOMETER DEV NAME(LOC) 5N 1P; GLUCOSE,POINT OF CARE 343 MG/DL (70-110)
[2018-04-14 10:19] LABS: GLUCOMETER DEV NAME(LOC) 5N 1P; GLUCOSE,POINT OF CARE 280 MG/DL (70-110)
[2018-04-14 11:14] VITALS: BP 143/100
[2018-04-14] MEDS ORDERED: EPOETIN ALFA 10,000 UNITS/ML VIAL SQ ONE (11:45)
[2018-04-14 11:59] LABS: GLUCOMETER DEV NAME(LOC) 5N 2S; GLUCOSE,POINT OF CARE 228 MG/DL (70-110)
[2018-04-14] MEDS ORDERED: HydrALAZINE HCL 25 MG TABLET PO SCH (16:00)
[2018-04-15 02:44] LABS: GLUCOMETER DEV NAME(LOC) 5N 1P; GLUCOSE,POINT OF CARE 240 MG/DL (70-110)
[2018-04-17] MEDS ORDERED: AMLO-511 PO (20:12)
[2018-04-17] MEDS ORDERED: FLUO-125 PO (20:12)
[2018-04-17] MEDS ORDERED: FLUO-191 PO (20:23)
== END 2018-04-14 14:00 | disposition home or self-care (01) | DRG 501 ==
LOC: EMS 15:19 → 5N 20:52
PROVIDERS: ADMIT Internal Medicine; ATTEND Internal Medicine
PROC: 30233N1 Transfusion of Nonautologous Red Blood Cells into Peripheral Vein, Percutaneous Approach (ICD-10-PCS; principal; 2018-04-10)
DX: N50.82 Scrotal pain (principal); N17.0 Acute kidney failure with tubular necrosis; E43 Unspecified severe protein-calorie malnutrition; E10.21 Type 1 diabetes mellitus with diabetic nephropathy; E10.42 Type 1 diabetes mellitus with diabetic polyneuropathy; K31.84 Gastroparesis; F11.20 Opioid dependence, uncomplicated; E10.22 Type 1 diabetes mellitus with diabetic chronic kidney disease; N50.89 Other specified disorders of the male genital organs; E10.65 Type 1 diabetes mellitus with hyperglycemia; E87.5 Hyperkalemia; E10.649 Type 1 diabetes mellitus with hypoglycemia without coma; I12.9 Hypertensive chronic kidney disease with stage 1 through stage 4 chronic kidney disease, or unspecified chronic kidney disease; N31.9 Neuromuscular dysfunction of bladder, unspecified; K52.9 Noninfective gastroenteritis and colitis, unspecified; N50.819 Testicular pain, unspecified; F32.9 Major depressive disorder, single episode, unspecified; E10.43 Type 1 diabetes mellitus with diabetic autonomic (poly)neuropathy; G89.29 Other chronic pain; N18.4 Chronic kidney disease, stage 4 (severe); D63.8 Anemia in other chronic diseases classified elsewhere; E10.319 Type 1 diabetes mellitus with unspecified diabetic retinopathy without macular edema; G40.909 Epilepsy, unspecified, not intractable, without status epilepticus; Z76.5 Malingerer [conscious simulation]; Z83.3 Family history of diabetes mellitus; Z82.49 Family history of ischemic heart disease and other diseases of the circulatory system; Z88.6 Allergy status to analgesic agent; Z87.440 Personal history of urinary (tract) infections; Z90.411 Acquired partial absence of pancreas; Z68.1 Body mass index [BMI] 19.9 or less, adult; Z91.19 Patient's noncompliance with other medical treatment and regimen; Z79.4 Long term (current) use of insulin
CPT/HCPCS: 76770; 82043; 82271; 82570; 82728; 83540; 83550; 83735; 84100; 84132; 84300; 84540; 86850; 86900; 86901; 86920; 87081; 87086; 87491; 89050; 93005; 96374; 96375; 99285; J0885; J1170; J1815; J1885; J1940; J2405; J3010; J3490; J7050; P9016

== ENCOUNTER 2018-04-29 16:05 | Emergency (ER) | payer OTHER ==
[~2018-04-29] VITALS: Ht 162.6 cm; Wt 54.5 kg
[~2018-04-29 16:05] MED LIST changes: -CLON1 PO; +FLUO-191 PO; -GABA-533 PO; -HYDR-309 PO; +HYDR25TA84 PO; +METO5TAB95 PO; -MIDO2.5T15 PO
[2018-04-29] MEDS ORDERED: FURO80 PO (16:13)
[2018-04-29 16:18] LABS: GLUCOSE,POINT OF CARE 282 MG/DL (70-110)
[2018-04-29] MEDS ORDERED: AMLO-512 PO (17:55)
[2018-04-29] MEDS ORDERED: HYDROCODONE/ACETAMINOPHEN 5-325 MG TABLET PO ONE (18:00)
[2018-04-29 18:41] LABS: BASOPHILS % (AUTO) 2.6 % (0.0-2.0); EOSINOPHILS % (AUTO) 0.8 % (1.0-6.0); HEMATOCRIT 32.5 % (41-53); LYMPHOCYTES # (AUTO) 1.1 K/uL (1.0-4.8); LYMPHOCYTES % (AUTO) 23.7 % (22.0-44.0); MEAN CORPUSCULAR HGB CONC 33.8 G/dL (31.0-37.0); MEAN CORPUSCULAR VOLUME 86 fL (80-100); MONOCYTES # (AUTO) 0.3 K/uL (0.1-1.0); MONOCYTES % (AUTO) 5.8 % (2.0-9.0); NEUTROPHILS # (AUTO) 3.2 K/uL (1.8-7.7); NEUTROPHILS % (AUTO) 67.1 % (40.0-70.0); PLATELET COUNT (AUTO) 292 K/uL (150-450); RED BLOOD CELL COUNT(AUTO) 3.78 MIL/uL (4.50-5.90); RED CELL DISTRIBUTION WIDTH 15.4 % (11.5-14.5)
[2018-04-29 18:55] LABS: CALCIUM, TOTAL 7.9 mg/dL (8.8-10.5); CREATININE 2.6 mg/dL (0.60-1.30)
[2018-04-29 18:57] LABS: ALBUMIN 2.1 g/dL (3.4-5.0); BILIRUBIN,TOTAL 0.2 mg/dL (0.1-1.0); TOTAL PROTEIN, SERUM 6.7 g/dL (6.4-8.2)
[2018-04-29 20:00] LABS: BILIRUBIN,URINE NEGATIVE (NEGATIVE); GLUCOSE, URINE (UA) 100 mg/dL (NEGATIVE); KETONES,URINE NEGATIVE (NEGATIVE); LEUKOCYTE ESTERASE ,URINE SMALL (NEGATIVE); NITRATE,URINE NEGATIVE (NEGATIVE); OCCULT BLOOD,URINE MODERATE (NEGATIVE); PROTEIN,URINE SEE CONFIRM (NEGATIVE); UROBILINOGEN,URINE 0.2 mg/dL (<=1.0)
[2018-04-29 20:40] LABS: APPEARANCE,URINE HAZY (CLEAR)
[2018-04-29 20:41] LABS: SULFOSALICYLIC ACID,URINE 1+ (Negative)
[2018-04-29 20:42] LABS: BACTERIA,URINE Rare /HPF (None Seen); SQUAMOUS EPITHELIAL CELL,UR Few /LPF (None Seen); YEAST,URINE Few /HPF (None Seen)
[2018-04-29 21:27] VITALS: BP 142/98
== END 2018-04-29 21:29 | disposition home or self-care (01) ==
LOC: EMS 16:07
DX: N50.819 Testicular pain, unspecified (principal); E11.9 Type 2 diabetes mellitus without complications; I10 Essential (primary) hypertension; F32.9 Major depressive disorder, single episode, unspecified; Z79.899 Other long term (current) drug therapy; Z79.4 Long term (current) use of insulin; Z88.5 Allergy status to narcotic agent
CPT/HCPCS: 76870; 99285

== ENCOUNTER 2018-06-17 21:38 | Emergency (ER) | payer OTHER ==
[~2018-06-17] VITALS: Ht 160 cm; Wt 54.5 kg
[~2018-06-17 21:38] MED LIST changes: -AMLO-511 PO; +AMLO-512 PO; +AMYL1CAP63 PO; +BUSP15 PO; +CIP250 PO; +FLUC100T PO; +GABA-533 PO; +HYDR-309 PO; -HYDR25TA84 PO; +LABE200T6 PO; +PATI8.4P PO; +PROM6.2522 PO; +SODI15PO2 PO
[2018-06-17 22:26] LABS: APPEARANCE,URINE CLEAR (CLEAR); BILIRUBIN,URINE NEGATIVE (NEGATIVE); GLUCOSE, URINE (UA) >=1000 mg/dL (NEGATIVE); KETONES,URINE NEGATIVE (NEGATIVE); LEUKOCYTE ESTERASE ,URINE SMALL (NEGATIVE); NITRATE,URINE NEGATIVE (NEGATIVE); OCCULT BLOOD,URINE MODERATE (NEGATIVE); PH,URINE 5.5 (5.0-8.0); PROTEIN,URINE SEE CONFIRM (NEGATIVE); UROBILINOGEN,URINE 0.2 mg/dL (<=1.0)
[2018-06-17 22:48] LABS: SULFOSALICYLIC ACID,URINE 4+ (Negative)
[2018-06-17 22:53] LABS: WBC,URINE 26-50 /HPF (0-5)
[2018-06-17 22:54] LABS: BACTERIA,URINE Few /HPF (None Seen)
[2018-06-17 22:55] LABS: SQUAMOUS EPITHELIAL CELL,UR Few /LPF (None Seen)
[2018-06-17 22:59] LABS: GLUCOSE,POINT OF CARE 222 MG/DL (70-110)
[2018-06-17 23:41] LABS: BASOPHILS % (AUTO) 1.2 % (0.0-2.0); EOSINOPHILS % (AUTO) 0.5 % (1.0-6.0); HEMATOCRIT 25.7 % (41-53); HEMOGLOBIN 8.9 g/dL (13.5-17.5); LYMPHOCYTES # (AUTO) 1.6 K/uL (1.0-4.8); LYMPHOCYTES % (AUTO) 34.9 % (22.0-44.0); MEAN CORPUSCULAR HGB CONC 34.5 G/dL (31.0-37.0); MEAN CORPUSCULAR VOLUME 84 fL (80-100); MONOCYTES # (AUTO) 0.5 K/uL (0.1-1.0); MONOCYTES % (AUTO) 11.1 % (2.0-9.0); NEUTROPHILS # (AUTO) 2.4 K/uL (1.8-7.7); NEUTROPHILS % (AUTO) 52.3 % (40.0-70.0); PLATELET COUNT (AUTO) 293 K/uL (150-450); RED BLOOD CELL COUNT(AUTO) 3.06 MIL/uL (4.50-5.90); RED CELL DISTRIBUTION WIDTH 13.9 % (11.5-14.5)
[2018-06-18 00:08] LABS: CALCIUM, TOTAL 8.2 mg/dL (8.8-10.5); CREATININE 3.45 mg/dL (0.60-1.30); POTASSIUM 3.4 mmol/L (3.5-5.1)
[2018-06-18 00:13] LABS: ALBUMIN 2.8 g/dL (3.4-5.0); BILIRUBIN,TOTAL 0.1 mg/dL (0.1-1.0)
[2018-06-18 01:00] VITALS: BP 131/80
[2018-06-18] MEDS ORDERED: OxyCODONE HCL/ACETAMINOPHEN 5-325 MG TABLET PO ONE (01:30)
== END 2018-06-18 01:08 | disposition home or self-care (01) ==
LOC: EMS 21:40
DX: N30.90 Cystitis, unspecified without hematuria (principal); K52.9 Noninfective gastroenteritis and colitis, unspecified; I12.9 Hypertensive chronic kidney disease with stage 1 through stage 4 chronic kidney disease, or unspecified chronic kidney disease; E11.22 Type 2 diabetes mellitus with diabetic chronic kidney disease; N18.9 Chronic kidney disease, unspecified; N31.9 Neuromuscular dysfunction of bladder, unspecified; F32.9 Major depressive disorder, single episode, unspecified; K76.9 Liver disease, unspecified; I95.9 Hypotension, unspecified; Z88.5 Allergy status to narcotic agent; Z79.4 Long term (current) use of insulin; Z79.899 Other long term (current) drug therapy
CPT/HCPCS: 74176; 87086; 99285

== ENCOUNTER 2018-07-27 11:42 | Emergency (ER) | payer OTHER ==
[~2018-07-27] VITALS: Ht 172.7 cm; Wt 52.3 kg
[~2018-07-27 11:42] MED LIST changes: -CIP250 PO; -HYDR-309 PO; +LEVO500 PO; +PERCT10 PO
[2018-07-27] MEDS ORDERED: KETOROLAC TROMETHAMINE 30 MG/ML VIAL IVP ONE (13:00)
[2018-07-27] MEDS ORDERED: ONDANSETRON HCL 4 MG/2 ML VIAL IVP ONE (13:00)
[2018-07-27] MEDS ORDERED: AmLODIPine BESYLATE 5 MG TABLET PO ONE (13:00)
[2018-07-27] MEDS ORDERED: FentaNYL CITRATE-PF 100 MCG/2 ML VIAL IVP ONE (13:45)
[2018-07-27 14:13] VITALS: BP 150/94
== END 2018-07-27 14:48 | disposition home or self-care (01) ==
LOC: EMS 11:43
DX: R07.89 Other chest pain (principal); I10 Essential (primary) hypertension; F32.9 Major depressive disorder, single episode, unspecified; E11.9 Type 2 diabetes mellitus without complications; G47.00 Insomnia, unspecified; Z79.4 Long term (current) use of insulin; Z79.899 Other long term (current) drug therapy; Z88.5 Allergy status to narcotic agent
CPT/HCPCS: 71046; 82962; 93005; 96374; 96375; 99284; J1885; J2405; J3010

== ENCOUNTER 2018-07-28 11:54 | Inpatient (IN) | payer OTHER ==
[~2018-07-28] VITALS: Ht 160 cm; Wt 50.4 kg
[~2018-07-28 11:54] MED LIST changes: -FLUC100T PO; -LEVO500 PO; -PATI8.4P PO; -PROM6.2522 PO
[2018-07-28] MEDS ORDERED: SODIUM CHLORIDE 0.9% 1,000 ML IV ONE ×2 (12:15→15:00)
[2018-07-28 13:33] LABS: AMPHET/METH SCREEN,URINE NEGATIVE (NEGATIVE); BARBITURATE SCREEN, URINE NEGATIVE (NEGATIVE); BENZODIAZEPINES SCREEN,URINE NEGATIVE (NEGATIVE); CANNABINOID SCREEN,URINE NEGATIVE (NEGATIVE); COCAINE SCREEN,URINE NEGATIVE (NEGATIVE); METHADONE SCREEN, URINE NEGATIVE (NEGATIVE); OPIATE SCREEN,URINE POSITIVE (NEGATIVE)
[2018-07-28 13:36] LABS: PHENCYCLIDINE SCREEN,URINE NEGATIVE (NEGATIVE)
[2018-07-28 13:48] LABS: APPEARANCE,URINE CLOUDY (CLEAR); BILIRUBIN,URINE NEGATIVE (NEGATIVE); GLUCOSE, URINE (UA) >=1000 mg/dL (NEGATIVE); KETONES,URINE NEGATIVE (NEGATIVE); LEUKOCYTE ESTERASE ,URINE SMALL (NEGATIVE); NITRATE,URINE NEGATIVE (NEGATIVE); OCCULT BLOOD,URINE MODERATE (NEGATIVE); PROTEIN,URINE POS 1+ (NEGATIVE); UROBILINOGEN,URINE 0.2 mg/dL (<=1.0)
[2018-07-28 14:07] LABS: RBC,URINE 0-2 /HPF (0-2)
[2018-07-28 14:08] LABS: BACTERIA,URINE Few /HPF (None Seen); SQUAMOUS EPITHELIAL CELL,UR Few /LPF (None Seen); WBC,URINE 26-50 /HPF (0-5)
[2018-07-28 14:20] LABS: ANION GAP 12 mmol/L (8-16); CALCIUM, TOTAL 7.4 mg/dL (8.8-10.5); CARBON DIOXIDE 20 mmol/L (22-29); CHLORIDE 101 mmol/L (98-107); CREATININE 3.41 mg/dL (0.60-1.30); GLOMERULAR FILTR. RATE CALC 21 mL/min (>60); GLUCOSE,RANDOM 153 mg/dL (70-110); POTASSIUM 4.4 mmol/L (3.5-5.1); PROTHROMBIN TIME 10.5 SEC (9.4-11.6); SODIUM SERUM 133 mmol/L (136-145); UREA NITROGEN, BLOOD 25 mg/dL (7-18)
[2018-07-28 14:27] LABS: AMMONIA 39 umol/L (11-32)
[2018-07-28 14:30] LABS: TROPONIN I < 0.02 ng/mL (0.00-0.05)
[2018-07-28 14:31] LABS: SALICYLATE 1.3 mg/dL (2.8-20.0)
[2018-07-28 14:37] LABS: BASOPHILS % (AUTO) 0.3 % (0.0-2.0); EOSINOPHILS % (AUTO) 0.6 % (1.0-6.0); HEMATOCRIT 24.5 % (41-53); LYMPHOCYTES # (AUTO) 0.7 K/uL (1.0-4.8); LYMPHOCYTES % (AUTO) 5.4 % (22.0-44.0); MEAN CORPUSCULAR HEMOGLOBIN 28.3 pg (26.0-34.0); MEAN CORPUSCULAR HGB CONC 32.9 G/dL (31.0-37.0); MEAN CORPUSCULAR VOLUME 86 fL (80-100); MONOCYTES # (AUTO) 0.9 K/uL (0.1-1.0); MONOCYTES % (AUTO) 6.7 % (2.0-9.0); NEUTROPHILS # (AUTO) 11.5 K/uL (1.8-7.7); PLATELET COUNT (AUTO) 338 K/uL (150-450); RED BLOOD CELL COUNT(AUTO) 2.85 MIL/uL (4.50-5.90); RED CELL DISTRIBUTION WIDTH 14.3 % (11.5-14.5)
[2018-07-28 14:50] LABS: ACETAMINOPHEN 4 mcg/mL (10-30); ALANINE AMINOTRANSFERASE 57 U/L (12-78); ALBUMIN 1.7 g/dL (3.4-5.0); ALKALINE PHOSPHATASE 201 U/L (46-116); ASPARTATE AMINOTRANSFERASE 43 U/L (15-37); BILIRUBIN,TOTAL 0.1 mg/dL (0.1-1.0); CREATINE KINASE, TOTAL ONLY 649 U/L (39-308); LIPASE 32 U/L (73-393); TOTAL PROTEIN, SERUM 5.1 g/dL (6.4-8.2)
[2018-07-28] MEDS ORDERED: NALOXONE HCL 1 MG/ML 2 ML SYG IVP ONE (15:00)
[2018-07-28] MEDS ORDERED: CefTRIAXone SODIUM 1 GM in DEXTROSE 5%-WATER 10 ML IV ONE (15:00)
[2018-07-28] MEDS ORDERED: KETOROLAC TROMETHAMINE 30 MG/ML VIAL IVP ONE (15:15)
[2018-07-28] MEDS ORDERED: 0.9% SODIUM CHLORIDE 10 ML SYRINGE IVP PRN (15:30)
[2018-07-28] MEDS ORDERED: ONDANSETRON HCL 4 MG/2 ML VIAL IVP PRN (15:30)
[2018-07-28] MEDS ORDERED: ACETAMINOPHEN 325 MG TABLET PO PRN (15:30)
[2018-07-28] MEDS ORDERED: ATROPINE SULFATE 0.1 MG/ML 10 ML SYRINGE IVP ONE ×2 (15:55→16:04)
[2018-07-28] MEDS ORDERED: SODIUM BICARBONATE [ADULT] 8.4% 50 MEQ/50 ML SYRINGE IVP ONE (15:55)
[2018-07-28] MEDS ORDERED: EPINEPHrine 1:10,000 [1 MG/10 ML] SYRINGE IVP ONE ×2 (15:55→16:04)
[2018-07-28] MEDS ORDERED: DOPamine HCL/D5W 400 MG/250 ML IV BAG IV ONE (16:04)
[2018-07-28] MEDS ORDERED: VECURONIUM BROMIDE 10 MG/VIAL IV ONE (16:06)
[2018-07-28] MEDS ORDERED: ETOMIDATE 2 MG/ML 10 ML VIAL IV ONE (16:06)
[2018-07-28] MEDS ORDERED: SUCCINYLCHOLINE CHLORIDE 20 MG/ML 10 ML VIAL IV ONE (16:06)
[2018-07-28] MEDS ORDERED: HYDROCODONE/ACETAMINOPHEN 5-325 MG TABLET PO ONE (17:00)
[2018-07-28] MEDS ORDERED: MAGNESIUM HYDROXIDE SUSPENSION 30 ML UDCUP PO PRN (17:45)
[2018-07-28] MEDS ORDERED: MORPHINE SULFATE 2 MG/ML SYRINGE IVP PRN (17:45)
[2018-07-28] MEDS ORDERED: BISACODYL 10 MG RECTAL RECTAL SUPPOSITORY PR PRN (17:45)
[2018-07-28] MEDS ORDERED: ZOLPIDEM TARTRATE 5 MG TABLET PO PRN (17:45)
[2018-07-28] MEDS: OxyCODONE HCL/ACETAMINOPHEN 10-325 MG TABLET PO SCH ×2 (18:00→23:50)
[2018-07-28] MEDS: SODIUM CHLORIDE 0.9% 1,000 ML IV SCH (18:51)
[2018-07-28 19:32] VITALS: BP 90/50
[2018-07-28] MEDS: DOCUSATE SODIUM 100 MG CAPSULE PO SCH (20:16)
[2018-07-28] MEDS: AMYLASE/LIPASE/PROTEASE 60/12/38 MU DR CAPSULE PO SCH (20:16)
[2018-07-28] MEDS: BusPIRone HCL 15 MG TABLET PO SCH (20:16)
[2018-07-28] MEDS: GABAPENTIN 400 MG CAPSULE PO SCH (20:16)
[2018-07-28] MEDS: ONDANSETRON HCL 4 MG/2 ML VIAL IVP PRN (20:17)
[2018-07-28 23:13] VITALS: BP 103/52
[2018-07-28] MEDS: HEPARIN SODIUM,PORCINE 5,000 UNITS/ML VIAL SQ SCH (23:49)
[2018-07-29] VITALS (9 sets, daily range): BP systolic 10–153; BP diastolic 47–70
[2018-07-29] MEDS: OxyCODONE HCL/ACETAMINOPHEN 10-325 MG TABLET PO SCH ×4 (05:58→23:39)
[2018-07-29 07:14] LABS: BASOPHILS % (AUTO) 0.1 % (0.0-2.0); EOSINOPHILS % (AUTO) 0 % (1.0-6.0); HEMATOCRIT 24.5 % (41-53); HEMOGLOBIN 8.1 g/dL (13.5-17.5); LYMPHOCYTES # (AUTO) 0.6 K/uL (1.0-4.8); LYMPHOCYTES % (AUTO) 3.1 % (22.0-44.0); MEAN CORPUSCULAR HEMOGLOBIN 28.3 pg (26.0-34.0); MEAN CORPUSCULAR HGB CONC 33.1 G/dL (31.0-37.0); MEAN CORPUSCULAR VOLUME 86 fL (80-100); MONOCYTES # (AUTO) 0.7 K/uL (0.1-1.0); NEUTROPHILS # (AUTO) 16.8 K/uL (1.8-7.7); PLATELET COUNT (AUTO) 319 K/uL (150-450); RED BLOOD CELL COUNT(AUTO) 2.85 MIL/uL (4.50-5.90); RED CELL DISTRIBUTION WIDTH 14.8 % (11.5-14.5)
[2018-07-29 07:21] LABS: NEUTROPHILS % (AUTO) 92.8 % (40.0-70.0)
[2018-07-29 07:30] LABS: ALBUMIN 1.4 g/dL (3.4-5.0); BILIRUBIN,TOTAL 0.1 mg/dL (0.1-1.0); CALCIUM, TOTAL 6.8 mg/dL (8.8-10.5); CREATININE 3.72 mg/dL (0.60-1.30); POTASSIUM 5.7 mmol/L (3.5-5.1); TOTAL PROTEIN, SERUM 5.3 g/dL (6.4-8.2)
[2018-07-29] MEDS: SODIUM CHLORIDE 0.9% 1,000 ML IV SCH ×2 (07:35→21:13)
[2018-07-29] MEDS: AMYLASE/LIPASE/PROTEASE 60/12/38 MU DR CAPSULE PO SCH ×3 (08:00→18:19)
[2018-07-29] MEDS: PANTOPRAZOLE SODIUM 40 MG/VIAL IVP SCH (08:45)
[2018-07-29] MEDS: HEPARIN SODIUM,PORCINE 5,000 UNITS/ML VIAL SQ SCH ×3 (08:46→23:47)
[2018-07-29] MEDS: ONDANSETRON HCL 4 MG/2 ML VIAL IVP PRN ×2 (08:53→16:29)
[2018-07-29] MEDS: BusPIRone HCL 15 MG TABLET PO SCH ×4 (09:00→21:13)
[2018-07-29] MEDS: GABAPENTIN 400 MG CAPSULE PO SCH ×3 (09:00→21:13)
[2018-07-29] MEDS: DOCUSATE SODIUM 100 MG CAPSULE PO SCH ×2 (09:00→21:13)
[2018-07-29] MEDS: SODIUM POLYSTYRENE SULFONATE 15 GM/60 ML SUSPENSION BOTTLE PO SCH (09:19)
[2018-07-29] MEDS: METOCLOPRAMIDE HCL 5 MG TABLET PO PRN ×2 (11:54→21:14)
[2018-07-29] MEDS ORDERED: DEXTROSE 50%-WATER 25 GM/50 ML SYRINGE IVP PRN (12:00)
[2018-07-29] MEDS: INSULIN LISPRO 100 UNITS/ML SQ PRN (12:03)
[2018-07-29] MEDS ORDERED: CefTRIAXone SODIUM 1 GM in DEXTROSE 5%-WATER 10 ML IV SCH (16:00)
[2018-07-30] VITALS (7 sets, daily range): BP systolic 82–153; BP diastolic 37–55
[2018-07-30] MEDS: OxyCODONE HCL/ACETAMINOPHEN 10-325 MG TABLET PO SCH ×3 (05:50→18:00)
[2018-07-30] MEDS: AMYLASE/LIPASE/PROTEASE 60/12/38 MU DR CAPSULE PO SCH ×3 (08:00→17:30)
[2018-07-30] MEDS: GABAPENTIN 400 MG CAPSULE PO SCH ×3 (09:00→21:00)
[2018-07-30] MEDS: DOCUSATE SODIUM 100 MG CAPSULE PO SCH ×2 (09:00→21:00)
[2018-07-30] MEDS: BusPIRone HCL 15 MG TABLET PO SCH ×4 (09:00→21:00)
[2018-07-30] MEDS: SODIUM POLYSTYRENE SULFONATE 15 GM/60 ML SUSPENSION BOTTLE PO SCH (09:00)
[2018-07-30] MEDS: HEPARIN SODIUM,PORCINE 5,000 UNITS/ML VIAL SQ SCH ×2 (09:20→16:00)
[2018-07-30] MEDS: PANTOPRAZOLE SODIUM 40 MG/VIAL IVP SCH (09:20)
[2018-07-30 09:47] LABS: BASOPHILS % (AUTO) 0.2 % (0.0-2.0); EOSINOPHILS % (AUTO) 0 % (1.0-6.0); HEMATOCRIT 22.9 % (41-53); HEMOGLOBIN 7.4 g/dL (13.5-17.5); LYMPHOCYTES # (AUTO) 0.6 K/uL (1.0-4.8); LYMPHOCYTES % (AUTO) 4.9 % (22.0-44.0); MEAN CORPUSCULAR HEMOGLOBIN 28.7 pg (26.0-34.0); MEAN CORPUSCULAR HGB CONC 32.4 G/dL (31.0-37.0); MEAN CORPUSCULAR VOLUME 89 fL (80-100); MONOCYTES # (AUTO) 0.8 K/uL (0.1-1.0); MONOCYTES % (AUTO) 6.5 % (2.0-9.0); NEUTROPHILS # (AUTO) 11.1 K/uL (1.8-7.7); PLATELET COUNT (AUTO) 307 K/uL (150-450); RED BLOOD CELL COUNT(AUTO) 2.58 MIL/uL (4.50-5.90); RED CELL DISTRIBUTION WIDTH 15.1 % (11.5-14.5)
[2018-07-30 09:48] LABS: NEUTROPHILS % (AUTO) 88.4 % (40.0-70.0)
[2018-07-30 09:54] LABS: CALCIUM, TOTAL 7.3 mg/dL (8.8-10.5); CREATININE 4.7 mg/dL (0.60-1.30)
[2018-07-30 09:57] LABS: POTASSIUM 6.2 mmol/L (3.5-5.1)
[2018-07-30] MEDS ORDERED: SODIUM CHLORIDE 0.9% 1,000 ML IV SCH (10:00)
[2018-07-30 10:10] LABS: MAGNESIUM 1.7 mg/dL (1.80-2.40); PHOSPHORUS 11.5 mg/dL (2.5-4.9)
[2018-07-30] MEDS ORDERED: DEXTROSE 50%-WATER 25 GM/50 ML SYRINGE IVP ONE (10:15)
[2018-07-30] MEDS ORDERED: SODIUM POLYSTYRENE SULFONATE 15 GM/60 ML SUSPENSION BOTTLE PO ONE (10:15)
[2018-07-30] MEDS ORDERED: INSULIN REGULAR, HUMAN 100 UNITS/ML IVP ONE (10:15)
[2018-07-30] MEDS ORDERED: CALCIUM GLUCONATE 100 MG/ML 10 ML IVP ONE (10:15)
[2018-07-30] MEDS: SODIUM BICARBONATE 50 MEQ in SODIUM CHLORIDE 0.45% 1,000 ML IV SCH ×2 (11:09→13:34)
[2018-07-30] MEDS ORDERED: SODIUM CHLORIDE 0.9% 1,000 ML IV ONE (12:30)
[2018-07-30] MEDS ORDERED: DOPamine HCL 400 MG/D5%-WATER 250 ML IV PRN (12:39)
[2018-07-30 13:12] LABS: GLUCOMETER DEV NAME(LOC) 5N 1P; GLUCOSE,POINT OF CARE 259 MG/DL (70-110)
[2018-07-30 13:24] LABS: ABG A-A DIFF O2 577.3 mmHg (10-20.0); ABG BASE EXCESS -19.9 mmol/L (-2.0-3.0); ABG CARBOXYHEMOGLOBIN 0.9 % (0.0-3.0); ABG METHEMOGLOBIN 0.3 % (0.0-1.5); ABG OXYGEN CONTENT 9.4 mL/dL (15.0-23.0); ABG OXYGEN SATURATION 92.8 % (95.0-98.0); ABG OXYHEMOGLOBIN 91.7 % (94.0-100.0); ABG PCO2 52 mmHg (35-45); PO2, ARTERIAL BG 83.3 mmHg (80.0-100.0); SOURCE, BLOOD GAS ARTERIAL; TEMPERATURE, FAHRENHEIT, BG 98.6 FAHREN (96.0-98.6)
[2018-07-30 13:25] LABS: ABG PH 6.972 (7.350-7.450); ABG TOTAL HEMOGLOBIN 7.2 G/dL (12.0-18.0); O2 DEVICE,BLOOD GAS VENTILATOR (ROOM AIR); SITE, BLOOD GAS RT RADIAL; VT, ABG 450 ml
[2018-07-30 13:26] LABS: PEEP,BG 5 cm H2O
[2018-07-30] MEDS ORDERED: SODIUM BICARBONATE [ADULT] 8.4% 50 MEQ/50 ML SYRINGE IVP ONE (13:45)
[2018-07-30] MEDS: SODIUM BICARBONATE 75 MEQ in SODIUM CHLORIDE 0.45% 1,000 ML IV SCH ×2 (14:07→21:59)
[2018-07-30] MEDS ORDERED: SODIUM CHLORIDE 0.9% 500 ML IV ONE (15:06)
[2018-07-30 15:08] LABS: ABG A-A DIFF O2 608.3 mmHg (10-20.0); ABG BASE EXCESS -13.4 mmol/L (-2.0-3.0); ABG CARBOXYHEMOGLOBIN 0.9 % (0.0-3.0); ABG HCO3 14.3 mmol/L (22.0-26.0); ABG METHEMOGLOBIN 0.3 % (0.0-1.5); ABG OXYGEN CONTENT 9.5 mL/dL (15.0-23.0); ABG OXYHEMOGLOBIN 87.9 % (94.0-100.0); ABG PCO2 45 mmHg (35-45); PO2, ARTERIAL BG 60.1 mmHg (80.0-100.0); SOURCE, BLOOD GAS ARTERIAL; TEMPERATURE, FAHRENHEIT, BG 98.6 FAHREN (96.0-98.6)
[2018-07-30 15:09] LABS: ABG PH 7.155 (7.350-7.450); ABG TOTAL HEMOGLOBIN 7.6 G/dL (12.0-18.0); O2 DEVICE,BLOOD GAS VENTILATOR (ROOM AIR); SITE, BLOOD GAS RT RADIAL
[2018-07-30 15:10] LABS: PEEP,BG 5 cm H2O; VT, ABG 450 ml
[2018-07-30] MEDS ORDERED: HYDROmorphone 2 MG/ML SYRINGE IVP ONE (15:15)
[2018-07-30] MEDS: NOREPINEPHRINE 4 MG/D5%-WATER 250 ML IV PRN (16:00)
[2018-07-30] MEDS ORDERED: *CLINICAL-RX DOSING [ENTER DRUG IN COMMENTS] CLINICAL ONE (16:15)
[2018-07-30 17:01] LABS: GLUCOSE,POINT OF CARE 311 MG/DL (70-110)
[2018-07-30] MEDS ORDERED: [UNRECOGNIZED DRUG - OTHER] IRRIG PRN (17:45)
[2018-07-30] MEDS ORDERED: POTASSIUM CHLORIDE IRRIG PRN (17:45)
[2018-07-30] MEDS ORDERED: SODIUM BICARBONATE IRRIG PRN (17:45)
[2018-07-30] MEDS ORDERED: NXSTAGE RFP K0 IRRIG PRN (17:45)
[2018-07-30] MEDS: MEROPENEM 1 GM in SODIUM CHLORIDE 0.9% 100 ML IV SCH (18:09)
[2018-07-30 18:32] LABS: CALCIUM, TOTAL 6.3 mg/dL (8.8-10.5); CREATININE 4.99 mg/dL (0.60-1.30); POTASSIUM 4.7 mmol/L (3.5-5.1)
[2018-07-30 18:36] LABS: MAGNESIUM 1.3 mg/dL (1.80-2.40)
[2018-07-30 18:37] LABS: ABG A-A DIFF O2 587.1 mmHg (10-20.0); ABG CARBOXYHEMOGLOBIN 0.3 % (0.0-3.0); ABG HCO3 14.6 mmol/L (22.0-26.0); ABG METHEMOGLOBIN 0.3 % (0.0-1.5); ABG OXYGEN SATURATION 93.5 % (95.0-98.0); ABG OXYHEMOGLOBIN 92.9 % (94.0-100.0); ABG PCO2 47 mmHg (35-45); ABG TOTAL HEMOGLOBIN 8.3 G/dL (12.0-18.0); PO2, ARTERIAL BG 81.4 mmHg (80.0-100.0); SOURCE, BLOOD GAS ARTERIAL; TEMPERATURE, FAHRENHEIT, BG 96.9 FAHREN (96.0-98.6)
[2018-07-30 18:38] LABS: ABG PH 7.149 (7.350-7.450); O2 DEVICE,BLOOD GAS VENTILATOR (ROOM AIR); PEEP,BG 10 cm H2O; SITE, BLOOD GAS ARTERIAL LINE; VT, ABG 450 ml
[2018-07-30] MEDS ORDERED: VANCOMYCIN HCL 1 GM/D5% WATER 200 ML IV PRN (18:45)
[2018-07-30 18:52] LABS: PHOSPHORUS 11.3 mg/dL (2.5-4.9)
[2018-07-30 18:54] LABS: GLUCOSE,POINT OF CARE 313 MG/DL (70-110)
[2018-07-30] MEDS ORDERED: VANCOMYCIN HCL 1 GM/D5% WATER 200 ML IV ONE (19:00)
[2018-07-30] MEDS ORDERED: HEPARIN SODIUM,PORCINE 1,000 UNITS/ML VIAL ONE (20:24)
[2018-07-30 21:10] LABS: CALCIUM, TOTAL 6.7 mg/dL (8.8-10.5); CREATININE 4.72 mg/dL (0.60-1.30); POTASSIUM 4.6 mmol/L (3.5-5.1)
[2018-07-30 21:13] LABS: MAGNESIUM 1.4 mg/dL (1.80-2.40)
[2018-07-30 21:31] LABS: PHOSPHORUS 9.7 mg/dL (2.5-4.9)
[2018-07-30] MEDS ORDERED: MAGNESIUM SULFATE 2 GM/WATER 50 ML IV ONE (21:45)
[2018-07-30] MEDS ORDERED: CALCIUM GLUCONATE 1,000 MG in DEXTROSE 5%-WATER 50 ML IV ONE (21:45)
[2018-07-30] MEDS: HEPARIN SODIUM,PORCINE 1,000 UNITS/ML VIAL IVP PRN (22:01)
[2018-07-31] VITALS (20 sets, daily range): BP systolic 108–138; BP diastolic 43–65
[2018-07-31] MEDS: HEPARIN SODIUM,PORCINE 5,000 UNITS/ML VIAL SQ SCH ×3 (01:11→16:12)
[2018-07-31] MEDS: MEROPENEM 1 GM in SODIUM CHLORIDE 0.9% 100 ML IV SCH ×3 (01:12→17:54)
[2018-07-31] MEDS: MetroNIDAZOLE 500 MG/NACL 100 ML IV SCH ×4 (01:12→23:46)
[2018-07-31] MEDS: NOREPINEPHRINE 4 MG/D5%-WATER 250 ML IV PRN ×2 (01:40→16:14)
[2018-07-31 01:54] LABS: GLUCOMETER DEV NAME(LOC) 5N 2S; GLUCOSE,POINT OF CARE 336 MG/DL (70-110)
[2018-07-31 01:54] LABS: GLUCOMETER DEV NAME(LOC) 5N 2S; GLUCOSE,POINT OF CARE 312 MG/DL (70-110)
[2018-07-31 01:54] LABS: GLUCOMETER DEV NAME(LOC) 5S 1M; GLUCOSE,POINT OF CARE 347 MG/DL (70-110)
[2018-07-31 01:54] LABS: GLUCOMETER DEV NAME(LOC) 5S 1M; GLUCOSE,POINT OF CARE 260 MG/DL (70-110)
[2018-07-31 01:54] LABS: GLUCOMETER DEV NAME(LOC) 5S 1M; GLUCOSE,POINT OF CARE 296 MG/DL (70-110)
[2018-07-31 05:10] LABS: BASOPHILS % (AUTO) 0.1 % (0.0-2.0); EOSINOPHILS % (AUTO) 0.1 % (1.0-6.0); LYMPHOCYTES # (AUTO) 0.8 K/uL (1.0-4.8); LYMPHOCYTES % (AUTO) 7.9 % (22.0-44.0); MEAN CORPUSCULAR HEMOGLOBIN 29.1 pg (26.0-34.0); MEAN CORPUSCULAR HGB CONC 34.4 G/dL (31.0-37.0); MEAN CORPUSCULAR VOLUME 85 fL (80-100); MONOCYTES # (AUTO) 0.4 K/uL (0.1-1.0); NEUTROPHILS # (AUTO) 8.6 K/uL (1.8-7.7); PLATELET COUNT (AUTO) 287 K/uL (150-450); RED BLOOD CELL COUNT(AUTO) 2.41 MIL/uL (4.50-5.90); RED CELL DISTRIBUTION WIDTH 14.8 % (11.5-14.5)
[2018-07-31 05:22] LABS: % IRON SATURATION 21.5 % (30-44)
[2018-07-31 05:31] LABS: HEMATOCRIT 20.4 % (41-53); NEUTROPHILS % (AUTO) 87.9 % (40.0-70.0)
[2018-07-31 05:35] LABS: ALBUMIN 1.1 g/dL (3.4-5.0); BILIRUBIN,TOTAL 0.2 mg/dL (0.1-1.0); CALCIUM, TOTAL 6.7 mg/dL (8.8-10.5); CREATININE 3.73 mg/dL (0.60-1.30); POTASSIUM 4.3 mmol/L (3.5-5.1); THYROID STIMULATING HORMONE 2.53 uIU/mL (0.36-3.74); TOTAL PROTEIN, SERUM 4.1 g/dL (6.4-8.2)
[2018-07-31] MEDS: SODIUM BICARBONATE 75 MEQ in SODIUM CHLORIDE 0.45% 1,000 ML IV SCH (05:38)
[2018-07-31] MEDS ORDERED: SODIUM CHLORIDE 0.9% 250 ML IV ONE ×4 (05:52→18:51)
[2018-07-31] MEDS: OxyCODONE HCL/ACETAMINOPHEN 10-325 MG TABLET PO SCH ×4 (05:53→17:16)
[2018-07-31] MEDS: PROPOFOL 1000 MG/ISO-OSM 100 ML IV PRN ×2 (05:56→16:15)
[2018-07-31] MEDS ORDERED: POTASSIUM CHLORIDE 20 MEQ, SODIUM BICARBONATE 25 MEQ in NXSTAGE RFP-402 K0/CA3 5,000 ML IRRIG PRN (08:11)
[2018-07-31] MEDS ORDERED: ALBUMIN HUMAN 25%-12.5GM/50ML 50 ML IV SCH (08:15)
[2018-07-31] MEDS: AMYLASE/LIPASE/PROTEASE 60/12/38 MU DR CAPSULE PO SCH ×3 (08:27→17:16)
[2018-07-31] MEDS: GABAPENTIN 400 MG CAPSULE PO SCH ×3 (09:00→21:00)
[2018-07-31] MEDS: BusPIRone HCL 15 MG TABLET PO SCH ×4 (09:00→21:00)
[2018-07-31] MEDS: DOCUSATE SODIUM 100 MG CAPSULE PO SCH ×2 (09:00→21:00)
[2018-07-31] MEDS: SODIUM POLYSTYRENE SULFONATE 15 GM/60 ML SUSPENSION BOTTLE PO SCH (09:00)
[2018-07-31 09:39] LABS: ABG A-A DIFF O2 341.8 mmHg (10-20.0); ABG BASE EXCESS -2.4 mmol/L (-2.0-3.0); ABG CARBOXYHEMOGLOBIN 0.1 % (0.0-3.0); ABG HCO3 22.7 mmol/L (22.0-26.0); ABG METHEMOGLOBIN 0.3 % (0.0-1.5); ABG OXYGEN CONTENT 10.4 mL/dL (15.0-23.0); ABG OXYGEN SATURATION 96.9 % (95.0-98.0); ABG OXYHEMOGLOBIN 96.5 % (94.0-100.0); ABG PCO2 33 mmHg (35-45); ABG PH 7.444 (7.350-7.450); PO2, ARTERIAL BG 164.4 mmHg (80.0-100.0); SOURCE, BLOOD GAS ARTERIAL; TEMPERATURE, FAHRENHEIT, BG 92.7 FAHREN (96.0-98.6)
[2018-07-31 09:54] LABS: ABG TOTAL HEMOGLOBIN 7.3 G/dL (12.0-18.0); SITE, BLOOD GAS A LINE
[2018-07-31 09:55] LABS: O2 DEVICE,BLOOD GAS VENT (ROOM AIR); VT, ABG 450 ml
[2018-07-31 09:56] LABS: PEEP,BG 10 cm H2O; SPONTANEOUS VT, BG 412 ml
[2018-07-31] MEDS: PANTOPRAZOLE SODIUM 40 MG/VIAL IVP SCH (09:56)
[2018-07-31] MEDS: EPOETIN ALFA 10,000 UNITS/ML VIAL SQ SCH (09:56)
[2018-07-31] MEDS: ALBUMIN HUMAN 25%-25GM/100ML 100 ML IV SCH ×3 (10:03→20:52)
[2018-07-31 15:38] LABS: CALCIUM, TOTAL 6.8 mg/dL (8.8-10.5); CREATININE 2.95 mg/dL (0.60-1.30); POTASSIUM 4.3 mmol/L (3.5-5.1)
[2018-07-31 15:38] LABS: GLUCOSE,POINT OF CARE 117 MG/DL (70-110)
[2018-07-31] MEDS ORDERED: SODIUM CHLORIDE 0.9% 500 ML IV ONE (15:39)
[2018-07-31 15:43] LABS: GLUCOSE,POINT OF CARE 130 MG/DL (70-110)
[2018-07-31] MEDS ORDERED: CALCIUM GLUCONATE 100 MG/ML 10 ML IVP ONE (17:45)
[2018-07-31 17:47] LABS: MAGNESIUM 1.7 mg/dL (1.80-2.40); PHOSPHORUS 5.6 mg/dL (2.5-4.9)
[2018-07-31 17:59] LABS: GLUCOSE,POINT OF CARE 112 MG/DL (70-110)
[2018-07-31] MEDS ORDERED: MAGNESIUM SULFATE 1 GM in DEXTROSE 5%-WATER 50 ML IV ONE (18:00)
[2018-08-01] VITALS (7 sets, daily range): BP systolic 120–174; BP diastolic 55–83
[2018-08-01] MEDS: HEPARIN SODIUM,PORCINE 5,000 UNITS/ML VIAL SQ SCH (00:18)
[2018-08-01] MEDS: POTASSIUM CHLORIDE 20 MEQ in NXSTAGE RFP-402 K0/CA3 5,000 ML IRRIG PRN ×3 (00:29→10:01)
[2018-08-01] MEDS: PROPOFOL 1000 MG/ISO-OSM 100 ML IV PRN ×4 (00:37→23:19)
[2018-08-01] MEDS: MEROPENEM 1 GM in SODIUM CHLORIDE 0.9% 100 ML IV SCH ×3 (01:15→16:52)
[2018-08-01] MEDS: ALBUMIN HUMAN 25%-25GM/100ML 100 ML IV SCH ×4 (03:00→21:25)
[2018-08-01 03:29] LABS: GLUCOSE,POINT OF CARE 111 MG/DL (70-110)
[2018-08-01 04:52] LABS: BASOPHILS % (AUTO) 0.3 % (0.0-2.0); EOSINOPHILS % (AUTO) 0.3 % (1.0-6.0); HEMOGLOBIN 7.5 g/dL (13.5-17.5); LYMPHOCYTES # (AUTO) 0.9 K/uL (1.0-4.8); LYMPHOCYTES % (AUTO) 5.7 % (22.0-44.0); MEAN CORPUSCULAR HEMOGLOBIN 28.2 pg (26.0-34.0); MEAN CORPUSCULAR VOLUME 83 fL (80-100); MONOCYTES # (AUTO) 0.5 K/uL (0.1-1.0); PLATELET COUNT (AUTO) 129 K/uL (150-450); RED BLOOD CELL COUNT(AUTO) 2.65 MIL/uL (4.50-5.90); RED CELL DISTRIBUTION WIDTH 15.1 % (11.5-14.5)
[2018-08-01 04:54] LABS: NEUTROPHILS % (AUTO) 90.7 % (40.0-70.0)
[2018-08-01 05:07] LABS: CALCIUM, TOTAL 7.7 mg/dL (8.8-10.5); CREATININE 2.5 mg/dL (0.60-1.30); MAGNESIUM 1.8 mg/dL (1.80-2.40); POTASSIUM 3.7 mmol/L (3.5-5.1); VANCOMYCIN,RANDOM 9.4 mcg/mL (25.0-50.0)
[2018-08-01] MEDS: OxyCODONE HCL/ACETAMINOPHEN 10-325 MG TABLET PO SCH ×4 (06:00→16:53)
[2018-08-01 07:24] LABS: GLUCOSE,POINT OF CARE 106 MG/DL (70-110)
[2018-08-01 07:24] LABS: GLUCOSE,POINT OF CARE 102 MG/DL (70-110)
[2018-08-01] MEDS: AMYLASE/LIPASE/PROTEASE 60/12/38 MU DR CAPSULE PO SCH ×3 (08:00→16:53)
[2018-08-01] MEDS: MetroNIDAZOLE 500 MG/NACL 100 ML IV SCH ×2 (08:24→16:53)
[2018-08-01] MEDS: SODIUM POLYSTYRENE SULFONATE 15 GM/60 ML SUSPENSION BOTTLE PO SCH (08:48)
[2018-08-01] MEDS: BusPIRone HCL 15 MG TABLET PO SCH ×4 (08:48→21:00)
[2018-08-01] MEDS: DOCUSATE SODIUM 100 MG CAPSULE PO SCH ×2 (08:48→21:00)
[2018-08-01] MEDS: GABAPENTIN 400 MG CAPSULE PO SCH ×3 (08:56→21:25)
[2018-08-01] MEDS ORDERED: VANCOMYCIN HCL 1 GM/D5% WATER 200 ML IV ONE (09:00)
[2018-08-01] MEDS: PANTOPRAZOLE SODIUM 40 MG/VIAL IVP SCH (10:00)
[2018-08-01 11:18] LABS: ABG A-A DIFF O2 108.4 mmHg (10-20.0); ABG BASE EXCESS -3.7 mmol/L (-2.0-3.0); ABG CARBOXYHEMOGLOBIN 0.2 % (0.0-3.0); ABG HCO3 21.8 mmol/L (22.0-26.0); ABG METHEMOGLOBIN 0.3 % (0.0-1.5); ABG OXYGEN CONTENT 10.8 mL/dL (15.0-23.0); ABG OXYGEN SATURATION 96.1 % (95.0-98.0); ABG OXYHEMOGLOBIN 95.6 % (94.0-100.0); ABG PCO2 32 mmHg (35-45); ABG PH 7.432 (7.350-7.450); PO2, ARTERIAL BG 104.4 mmHg (80.0-100.0); SOURCE, BLOOD GAS ARTERIAL; TEMPERATURE, FAHRENHEIT, BG 98.6 FAHREN (96.0-98.6)
[2018-08-01 11:20] LABS: ABG TOTAL HEMOGLOBIN 7.9 G/dL (12.0-18.0); SITE, BLOOD GAS ARTERIAL LINE
[2018-08-01 11:21] LABS: O2 DEVICE,BLOOD GAS VENTILATOR (ROOM AIR); VT, ABG 450 ml
[2018-08-01 11:22] LABS: PEEP,BG 8 cm H2O
[2018-08-01] MEDS ORDERED: SODIUM CHLORIDE 0.9% 250 ML IV ONE ×2 (14:30→14:31)
[2018-08-01] MEDS ORDERED: SODIUM CHLORIDE 0.9% 500 ML IV ONE (14:30)
[2018-08-01] MEDS: HEPARIN SODIUM,PORCINE 1,000 UNITS/ML VIAL IVP PRN ×2 (18:23→18:24)
[2018-08-01] MEDS: HydrALAZINE HCL 20 MG/ML VIAL IVP PRN (22:59)
[2018-08-02] VITALS (10 sets, daily range): BP systolic 119–190; BP diastolic 55–102
[2018-08-02] MEDS: OxyCODONE HCL/ACETAMINOPHEN 10-325 MG TABLET PO SCH ×4 (00:17→17:44)
[2018-08-02] MEDS: MetroNIDAZOLE 500 MG/NACL 100 ML IV SCH ×4 (00:17→20:43)
[2018-08-02] MEDS: MEROPENEM 1 GM in SODIUM CHLORIDE 0.9% 100 ML IV SCH ×2 (01:40→08:54)
[2018-08-02] MEDS: ALBUMIN HUMAN 25%-25GM/100ML 100 ML IV SCH ×4 (03:01→20:44)
[2018-08-02] MEDS: PROPOFOL 1000 MG/ISO-OSM 100 ML IV PRN ×2 (04:43→16:13)
[2018-08-02 05:32] LABS: BASOPHILS % (AUTO) 0.1 % (0.0-2.0); EOSINOPHILS % (AUTO) 0.7 % (1.0-6.0); HEMATOCRIT 24.8 % (41-53); HEMOGLOBIN 8.6 g/dL (13.5-17.5); LYMPHOCYTES # (AUTO) 1.3 K/uL (1.0-4.8); LYMPHOCYTES % (AUTO) 6.8 % (22.0-44.0); MEAN CORPUSCULAR HEMOGLOBIN 28.7 pg (26.0-34.0); MEAN CORPUSCULAR HGB CONC 34.8 G/dL (31.0-37.0); MEAN CORPUSCULAR VOLUME 82 fL (80-100); MONOCYTES # (AUTO) 0.6 K/uL (0.1-1.0); MONOCYTES % (AUTO) 3.1 % (2.0-9.0); NEUTROPHILS # (AUTO) 17.6 K/uL (1.8-7.7); PLATELET COUNT (AUTO) 119 K/uL (150-450); RED BLOOD CELL COUNT(AUTO) 3.01 MIL/uL (4.50-5.90); RED CELL DISTRIBUTION WIDTH 15.1 % (11.5-14.5)
[2018-08-02 05:34] LABS: NEUTROPHILS % (AUTO) 89.3 % (40.0-70.0)
[2018-08-02 05:44] LABS: GLUCOSE,POINT OF CARE 109 MG/DL (70-110)
[2018-08-02 05:44] LABS: GLUCOSE,POINT OF CARE 92 MG/DL (70-110)
[2018-08-02 05:45] LABS: GLUCOSE,POINT OF CARE 110 MG/DL (70-110)
[2018-08-02 05:50] LABS: ALBUMIN 2.6 g/dL (3.4-5.0); BILIRUBIN,TOTAL 0.6 mg/dL (0.1-1.0); CALCIUM, TOTAL 7.7 mg/dL (8.8-10.5); CREATININE 2.39 mg/dL (0.60-1.30); POTASSIUM 3.2 mmol/L (3.5-5.1); TOTAL PROTEIN, SERUM 4.8 g/dL (6.4-8.2); VANCOMYCIN,RANDOM 19.9 mcg/mL (25.0-50.0)
[2018-08-02 06:59] LABS: GLUCOSE,POINT OF CARE 95 MG/DL (70-110)
[2018-08-02 07:57] LABS: ABG A-A DIFF O2 114.8 mmHg (10-20.0); ABG BASE EXCESS -4.3 mmol/L (-2.0-3.0); ABG CARBOXYHEMOGLOBIN 0.5 % (0.0-1.5); ABG HCO3 21.4 mmol/L (22.0-26.0); ABG METHEMOGLOBIN 0.3 % (0.0-1.5); ABG OXYGEN CONTENT 11.9 mL/dL (15.0-23.0); ABG OXYGEN SATURATION 96.5 % (95.0-98.0); ABG OXYHEMOGLOBIN 95.7 % (94.0-100.0); ABG PCO2 31 mmHg (35-45); ABG PH 7.433 (7.350-7.450); ABG TOTAL HEMOGLOBIN 8.7 G/dL (12.0-18.0); PO2, ARTERIAL BG 99.2 mmHg (92.0-100.0); SOURCE, BLOOD GAS ARTERIAL; TEMPERATURE, FAHRENHEIT, BG 98.6 FAHREN (96.0-98.6)
[2018-08-02 07:58] LABS: O2 DEVICE,BLOOD GAS VENTILATOR (ROOM AIR); PEEP,BG 5 cm H2O; SITE, BLOOD GAS ARTERIAL LINE; VT, ABG 450 ml
[2018-08-02] MEDS: PANTOPRAZOLE SODIUM 40 MG/VIAL IVP SCH (08:51)
[2018-08-02] MEDS: EPOETIN ALFA 10,000 UNITS/ML VIAL SQ SCH (08:52)
[2018-08-02] MEDS: BusPIRone HCL 15 MG TABLET PO SCH ×4 (08:52→20:44)
[2018-08-02] MEDS: AMYLASE/LIPASE/PROTEASE 60/12/38 MU DR CAPSULE PO SCH ×3 (08:53→17:54)
[2018-08-02] MEDS: GABAPENTIN 400 MG CAPSULE PO SCH ×3 (08:53→20:44)
[2018-08-02] MEDS: SODIUM POLYSTYRENE SULFONATE 15 GM/60 ML SUSPENSION BOTTLE PO SCH (09:00)
[2018-08-02] MEDS: DOCUSATE SODIUM 100 MG CAPSULE PO SCH ×2 (09:00→20:44)
[2018-08-02] MEDS: HYDROmorphone 2 MG/ML SYRINGE IVP PRN (10:29)
[2018-08-02] MEDS: HydrALAZINE HCL 20 MG/ML VIAL IVP PRN ×2 (10:36→21:17)
[2018-08-02] MEDS ORDERED: BARIUM SULFATE 0.1% SUSPENSION 450 ML BOTTLE ONE (12:29)
[2018-08-02 15:48] LABS: GLUCOSE,POINT OF CARE 102 MG/DL (70-110)
[2018-08-02] MEDS ORDERED: SODIUM CHLORIDE 0.9% 1,000 ML IV ONE (16:09)
[2018-08-02 20:41] LABS: ANION GAP 10 mmol/L (8-16); CALCIUM, TOTAL 8.8 mg/dL (8.8-10.5); CARBON DIOXIDE 24 mmol/L (22-29); CHLORIDE 101 mmol/L (98-107); CREATININE 0.96 mg/dL (0.60-1.30); GLOMERULAR FILTR. RATE CALC > 60 mL/min (>60); GLUCOSE,RANDOM 101 mg/dL (70-110); POTASSIUM 3.5 mmol/L (3.5-5.1); SODIUM SERUM 135 mmol/L (136-145); UREA NITROGEN, BLOOD 7 mg/dL (7-18)
[2018-08-02 20:51] LABS: PHOSPHORUS 1.4 mg/dL (2.5-4.9)
[2018-08-02] MEDS ORDERED: MAGNESIUM SULFATE 2 GM/WATER 50 ML IV ONE (21:30)
[2018-08-02] MEDS ORDERED: SODIUM PHOS,M-BASIC-D-BASIC 20 MEQ in DEXTROSE 5%-WATER 100 ML IV ONE (21:30)
[2018-08-02] MEDS: HYDROCODONE/ACETAMINOPHEN 5-325 MG TABLET PO PRN (23:55)
[2018-08-03] VITALS (13 sets, daily range): BP systolic 130–170; BP diastolic 63–91
[2018-08-03] MEDS: ALBUMIN HUMAN 25%-25GM/100ML 100 ML IV SCH ×4 (02:31→21:12)
[2018-08-03] MEDS: PROPOFOL 1000 MG/ISO-OSM 100 ML IV PRN ×2 (03:14→09:21)
[2018-08-03 04:48] LABS: BASOPHILS % (AUTO) 0.2 % (0.0-2.0); EOSINOPHILS % (AUTO) 1.4 % (1.0-6.0); HEMATOCRIT 25.3 % (41-53); HEMOGLOBIN 8.6 g/dL (13.5-17.5); LYMPHOCYTES % (AUTO) 8.6 % (22.0-44.0); MEAN CORPUSCULAR HEMOGLOBIN 28.6 pg (26.0-34.0); MEAN CORPUSCULAR VOLUME 84 fL (80-100); MONOCYTES # (AUTO) 0.8 K/uL (0.1-1.0); MONOCYTES % (AUTO) 6.4 % (2.0-9.0); NEUTROPHILS % (AUTO) 83.4 % (40.0-70.0); RED BLOOD CELL COUNT(AUTO) 3.01 MIL/uL (4.50-5.90)
[2018-08-03 05:05] LABS: CALCIUM, TOTAL 8.9 mg/dL (8.8-10.5); CREATININE 1.44 mg/dL (0.60-1.30); MAGNESIUM 2.2 mg/dL (1.80-2.40); PHOSPHORUS 1.7 mg/dL (2.5-4.9); POTASSIUM 3.5 mmol/L (3.5-5.1)
[2018-08-03] MEDS: MetroNIDAZOLE 500 MG/NACL 100 ML IV SCH ×3 (05:08→21:12)
[2018-08-03 05:14] LABS: PLATELET COUNT (AUTO) 98 K/uL (150-450)
[2018-08-03] MEDS ORDERED: VANCOMYCIN HCL 1 GM/D5% WATER 200 ML IV ONE (06:00)
[2018-08-03] MEDS: OxyCODONE HCL/ACETAMINOPHEN 10-325 MG TABLET PO SCH ×4 (06:25→18:00)
[2018-08-03] MEDS ORDERED: SODIUM PHOS,M-BASIC-D-BASIC 20 MEQ in DEXTROSE 5%-WATER 100 ML IV ONE (08:00)
[2018-08-03] MEDS: SODIUM POLYSTYRENE SULFONATE 15 GM/60 ML SUSPENSION BOTTLE PO SCH (09:00)
[2018-08-03] MEDS: DOCUSATE SODIUM 100 MG CAPSULE PO SCH ×2 (09:14→21:00)
[2018-08-03] MEDS: PANTOPRAZOLE SODIUM 40 MG/VIAL IVP SCH (09:14)
[2018-08-03] MEDS: BusPIRone HCL 15 MG TABLET PO SCH ×4 (09:14→21:12)
[2018-08-03] MEDS: AMYLASE/LIPASE/PROTEASE 60/12/38 MU DR CAPSULE PO SCH ×3 (09:15→17:30)
[2018-08-03] MEDS: GABAPENTIN 400 MG CAPSULE PO SCH ×3 (09:17→21:13)
[2018-08-03] MEDS: HydrALAZINE HCL 20 MG/ML VIAL IVP PRN ×2 (09:20→14:55)
[2018-08-03 10:40] LABS: ABG A-A DIFF O2 113.4 mmHg (10-20.0); ABG BASE EXCESS -6.5 mmol/L (-2.0-3.0); ABG CARBOXYHEMOGLOBIN 0.4 % (0.0-1.5); ABG HCO3 19.8 mmol/L (22.0-26.0); ABG METHEMOGLOBIN 0.3 % (0.0-1.5); ABG OXYGEN CONTENT 12.5 mL/dL (15.0-23.0); ABG OXYGEN SATURATION 96.7 % (95.0-98.0); ABG PCO2 28 mmHg (35-45); ABG TOTAL HEMOGLOBIN 9.1 G/dL (12.0-18.0); O2 DEVICE,BLOOD GAS VENTILATOR (ROOM AIR); SITE, BLOOD GAS ARTERIAL LINE; SOURCE, BLOOD GAS ARTERIAL; TEMPERATURE, FAHRENHEIT, BG 98.8 FAHREN (96.0-98.6)
[2018-08-03 10:41] LABS: PEEP,BG 5 cm H2O; VT, ABG 450 ml
[2018-08-03] MEDS: INSULIN LISPRO 100 UNITS/ML SQ PRN (12:35)
[2018-08-03] MEDS ORDERED: SODIUM CHLORIDE 0.9% 500 ML IV ONE (14:49)
[2018-08-03 15:19] LABS: GLUCOSE,POINT OF CARE 109 MG/DL (70-110)
[2018-08-03 15:19] LABS: GLUCOSE,POINT OF CARE 101 MG/DL (70-110)
[2018-08-03 15:19] LABS: GLUCOSE,POINT OF CARE 102 MG/DL (70-110)
[2018-08-03 15:19] LABS: GLUCOSE,POINT OF CARE 147 MG/DL (70-110)
[2018-08-03 15:54] LABS: ABG A-A DIFF O2 117.8 mmHg (10-20.0); ABG BASE EXCESS -2.9 mmol/L (-2.0-3.0); ABG HCO3 22.3 mmol/L (22.0-26.0); ABG METHEMOGLOBIN 0.3 % (0.0-1.5); ABG OXYGEN CONTENT 11.6 mL/dL (15.0-23.0); ABG OXYGEN SATURATION 95.2 % (95.0-98.0); ABG PCO2 38 mmHg (35-45); ABG PH 7.381 (7.350-7.450); ABG TOTAL HEMOGLOBIN 8.7 G/dL (12.0-18.0); O2 DEVICE,BLOOD GAS VENTILATOR (ROOM AIR); PEEP,BG 0 cm H2O; PO2, ARTERIAL BG 86.6 mmHg (92.0-100.0); SITE, BLOOD GAS ARTERIAL LINE; SOURCE, BLOOD GAS ARTERIAL; SPONTANEOUS VT, BG 512 ml; TEMPERATURE, FAHRENHEIT, BG 100.1 FAHREN (96.0-98.6); VENT MODE, BG SPONTANEOUS (ROOM AIR)
[2018-08-03] MEDS: HYDROmorphone 2 MG/ML SYRINGE IVP PRN ×3 (17:47→22:19)
[2018-08-03] MEDS: MEROPENEM 500 MG in SODIUM CHLORIDE 0.9% 50 ML IV SCH (17:50)
[2018-08-03 22:29] LABS: GLUCOSE,POINT OF CARE 125 MG/DL (70-110)
[2018-08-04] VITALS (13 sets, daily range): BP systolic 112–189; BP diastolic 72–99
[2018-08-04] MEDS: HYDROmorphone 2 MG/ML SYRINGE IVP PRN ×4 (00:44→11:13)
[2018-08-04] MEDS: HYDROCODONE/ACETAMINOPHEN 5-325 MG TABLET PO PRN ×2 (02:39→10:05)
[2018-08-04] MEDS: ALBUMIN HUMAN 25%-25GM/100ML 100 ML IV SCH ×2 (02:56→08:34)
[2018-08-04 05:04] LABS: BASOPHILS % (AUTO) 0.1 % (0.0-2.0); EOSINOPHILS % (AUTO) 0.3 % (1.0-6.0); HEMATOCRIT 24.9 % (41-53); HEMOGLOBIN 8.3 g/dL (13.5-17.5); LYMPHOCYTES # (AUTO) 0.8 K/uL (1.0-4.8); LYMPHOCYTES % (AUTO) 5.4 % (22.0-44.0); MEAN CORPUSCULAR HEMOGLOBIN 28.2 pg (26.0-34.0); MEAN CORPUSCULAR HGB CONC 33.5 G/dL (31.0-37.0); MEAN CORPUSCULAR VOLUME 84 fL (80-100); MONOCYTES # (AUTO) 1.3 K/uL (0.1-1.0); MONOCYTES % (AUTO) 9.6 % (2.0-9.0); NEUTROPHILS # (AUTO) 11.9 K/uL (1.8-7.7); NEUTROPHILS % (AUTO) 84.6 % (40.0-70.0); RED BLOOD CELL COUNT(AUTO) 2.95 MIL/uL (4.50-5.90)
[2018-08-04] MEDS ORDERED: SODIUM CHLORIDE 0.9% 250 ML IV ONE ×2 (05:07→21:01)
[2018-08-04 05:09] LABS: ALBUMIN 3.7 g/dL (3.4-5.0); CALCIUM, TOTAL 8.5 mg/dL (8.8-10.5); CREATININE 2.13 mg/dL (0.60-1.30); MAGNESIUM 1.9 mg/dL (1.80-2.40); POTASSIUM 3.3 mmol/L (3.5-5.1); TOTAL PROTEIN, SERUM 5.6 g/dL (6.4-8.2)
[2018-08-04] MEDS: OxyCODONE HCL/ACETAMINOPHEN 10-325 MG TABLET PO SCH ×4 (05:12→17:39)
[2018-08-04] MEDS: MetroNIDAZOLE 500 MG/NACL 100 ML IV SCH ×3 (05:12→21:11)
[2018-08-04 05:59] LABS: GLUCOSE,POINT OF CARE 124 MG/DL (70-110)
[2018-08-04 05:59] LABS: GLUCOSE,POINT OF CARE 112 MG/DL (70-110)
[2018-08-04 07:28] LABS: PLATELET COUNT (AUTO) 87 K/uL (150-450)
[2018-08-04] MEDS ORDERED: SODIUM CHLORIDE 0.9% 1,000 ML IV ONE (07:58)
[2018-08-04] MEDS: AMYLASE/LIPASE/PROTEASE 60/12/38 MU DR CAPSULE PO SCH ×3 (08:00→17:39)
[2018-08-04] MEDS: PANTOPRAZOLE SODIUM 40 MG/VIAL IVP SCH (08:33)
[2018-08-04] MEDS: DOCUSATE SODIUM 100 MG CAPSULE PO SCH ×2 (09:00→20:28)
[2018-08-04] MEDS: VITAMIN B COMP/VIT C/FOLIC ACID CAPSULE GT SCH (09:00)
[2018-08-04] MEDS: BusPIRone HCL 15 MG TABLET PO SCH ×4 (09:00→20:28)
[2018-08-04] MEDS: GABAPENTIN 400 MG CAPSULE PO SCH ×3 (09:00→20:28)
[2018-08-04] MEDS ORDERED: HEPARIN SODIUM,PORCINE 1,000 UNITS/ML VIAL IVP ONE ×3 (09:30→12:00)
[2018-08-04] MEDS: HydrALAZINE HCL 20 MG/ML VIAL IVP PRN (10:05)
[2018-08-04] MEDS: HydrALAZINE HCL 50 MG TABLET PO SCH ×3 (13:08→20:28)
[2018-08-04] MEDS: EPOETIN ALFA 10,000 UNITS/ML VIAL SQ SCH (13:08)
[2018-08-04 13:09] LABS: GLUCOSE,POINT OF CARE 80 MG/DL (70-110)
[2018-08-04] MEDS: LORazepam 2 MG/ML VIAL IVP PRN (13:39)
[2018-08-04] MEDS: MEROPENEM 500 MG in SODIUM CHLORIDE 0.9% 50 ML IV SCH (17:06)
[2018-08-05 00:05] VITALS: BP 130/78
[2018-08-05] MEDS: OxyCODONE HCL/ACETAMINOPHEN 10-325 MG TABLET PO SCH ×3 (01:11→12:29)
[2018-08-05 04:56] VITALS: BP 140/93
[2018-08-05] MEDS: HYDROmorphone 2 MG/ML SYRINGE IVP PRN ×3 (05:27→12:51)
[2018-08-05] MEDS: MetroNIDAZOLE 500 MG/NACL 100 ML IV SCH (05:46)
[2018-08-05] MEDS: LORazepam 2 MG/ML VIAL IVP PRN ×2 (06:32→23:39)
[2018-08-05] MEDS: INSULIN LISPRO 100 UNITS/ML SQ PRN ×4 (06:32→21:00)
[2018-08-05 06:58] LABS: BASOPHILS % (AUTO) 0.2 % (0.0-2.0); EOSINOPHILS % (AUTO) 0.7 % (1.0-6.0); HEMATOCRIT 29.2 % (41-53); HEMOGLOBIN 9.6 g/dL (13.5-17.5); LYMPHOCYTES # (AUTO) 1.2 K/uL (1.0-4.8); MEAN CORPUSCULAR HEMOGLOBIN 27.9 pg (26.0-34.0); MEAN CORPUSCULAR HGB CONC 32.8 G/dL (31.0-37.0); MEAN CORPUSCULAR VOLUME 85 fL (80-100); MONOCYTES # (AUTO) 1.6 K/uL (0.1-1.0); MONOCYTES % (AUTO) 13.9 % (2.0-9.0); NEUTROPHILS # (AUTO) 8.7 K/uL (1.8-7.7); NEUTROPHILS % (AUTO) 75.2 % (40.0-70.0); PLATELET COUNT (AUTO) 105 K/uL (150-450); RED BLOOD CELL COUNT(AUTO) 3.43 MIL/uL (4.50-5.90); RED CELL DISTRIBUTION WIDTH 15.3 % (11.5-14.5)
[2018-08-05 07:12] LABS: CALCIUM, TOTAL 9.1 mg/dL (8.8-10.5); CREATININE 1.81 mg/dL (0.60-1.30); MAGNESIUM 1.7 mg/dL (1.80-2.40); PHOSPHORUS 2.3 mg/dL (2.5-4.9); POTASSIUM 3.9 mmol/L (3.5-5.1)
[2018-08-05 07:50] VITALS: BP 107/56
[2018-08-05] MEDS: AMYLASE/LIPASE/PROTEASE 60/12/38 MU DR CAPSULE PO SCH ×3 (08:46→17:42)
[2018-08-05] MEDS: VITAMIN B COMP/VIT C/FOLIC ACID CAPSULE GT SCH (08:46)
[2018-08-05] MEDS: BusPIRone HCL 15 MG TABLET PO SCH ×4 (08:47→20:57)
[2018-08-05] MEDS: PANTOPRAZOLE SODIUM 40 MG/VIAL IVP SCH (08:47)
[2018-08-05] MEDS: DOCUSATE SODIUM 100 MG CAPSULE PO SCH ×2 (08:48→20:58)
[2018-08-05] MEDS: GABAPENTIN 400 MG CAPSULE PO SCH ×3 (08:49→20:57)
[2018-08-05 11:35] VITALS: BP 138/86
[2018-08-05] MEDS: HydrALAZINE HCL 25 MG TABLET PO SCH ×2 (12:30→20:57)
[2018-08-05] MEDS: MEROPENEM 1 GM in SODIUM CHLORIDE 0.9% 100 ML IV SCH ×2 (14:39→23:39)
[2018-08-05 16:08] VITALS: BP 127/61
[2018-08-05 18:02] LABS: ABG BASE EXCESS -0.7 mmol/L (-2.0-3.0); ABG HCO3 23.8 mmol/L (22.0-26.0); ABG METHEMOGLOBIN 0.3 % (0.0-1.5); ABG OXYGEN CONTENT 10.9 mL/dL (15.0-23.0); ABG OXYGEN SATURATION 88.2 % (95.0-98.0); ABG OXYHEMOGLOBIN 86.2 % (94.0-100.0); ABG PCO2 39 mmHg (35-45); ABG PH 7.404 (7.350-7.450); O2 DEVICE,BLOOD GAS CANNULA (ROOM AIR); PO2, ARTERIAL BG 49.1 mmHg (92.0-100.0); SITE, BLOOD GAS RT RADIAL; SOURCE, BLOOD GAS ARTERIAL; TEMPERATURE, FAHRENHEIT, BG 98.6 FAHREN (96.0-98.6)
[2018-08-05 19:26] VITALS: BP 114/72
[2018-08-05 20:35] LABS: GLUCOMETER DEV NAME(LOC) 5S 1M; GLUCOSE,POINT OF CARE 117 MG/DL (70-110)
[2018-08-05] MEDS ORDERED: INSULIN LISPRO 100 UNITS/ML SQ ONE (21:00)
[2018-08-06] VITALS (7 sets, daily range): BP systolic 106–149; BP diastolic 70–93
[2018-08-06 03:11] LABS: GLUCOMETER DEV NAME(LOC) 5N 1P; GLUCOSE,POINT OF CARE 358 MG/DL (70-110)
[2018-08-06 03:11] LABS: GLUCOMETER DEV NAME(LOC) 5N 1P; GLUCOSE,POINT OF CARE 296 MG/DL (70-110)
[2018-08-06] MEDS: HYDROCODONE/ACETAMINOPHEN 5-325 MG TABLET PO PRN ×3 (04:56→23:41)
[2018-08-06] MEDS: LORazepam 2 MG/ML VIAL IVP PRN ×3 (06:16→22:01)
[2018-08-06] MEDS: INSULIN LISPRO 100 UNITS/ML SQ PRN ×4 (06:19→21:34)
[2018-08-06 06:53] LABS: CALCIUM, TOTAL 8.4 mg/dL (8.8-10.5); CREATININE 2.41 mg/dL (0.60-1.30); POTASSIUM 4.2 mmol/L (3.5-5.1)
[2018-08-06] MEDS: AMYLASE/LIPASE/PROTEASE 60/12/38 MU DR CAPSULE PO SCH ×3 (08:00→17:23)
[2018-08-06] MEDS: DOCUSATE SODIUM 100 MG CAPSULE PO SCH ×2 (08:14→20:29)
[2018-08-06] MEDS: HydrALAZINE HCL 25 MG TABLET PO SCH ×2 (08:14→21:00)
[2018-08-06] MEDS: PANTOPRAZOLE SODIUM 40 MG/VIAL IVP SCH (08:17)
[2018-08-06] MEDS: BusPIRone HCL 15 MG TABLET PO SCH ×4 (09:00→21:26)
[2018-08-06] MEDS: GABAPENTIN 400 MG CAPSULE PO SCH ×3 (09:00→21:26)
[2018-08-06] MEDS: VITAMIN B COMP/VIT C/FOLIC ACID CAPSULE GT SCH (09:00)
[2018-08-06 09:28] LABS: SOURCE, BLOOD GAS ARTERIAL
[2018-08-06 09:50] LABS: ABG A-A DIFF O2 68.5 mmHg (10-20.0); ABG BASE EXCESS 0.8 mmol/L (-2.0-3.0); ABG CARBOXYHEMOGLOBIN 1.3 % (0.0-1.5); ABG HCO3 25.1 mmol/L (22.0-26.0); ABG METHEMOGLOBIN 0.3 % (0.0-1.5); ABG OXYGEN CONTENT 11.1 mL/dL (15.0-23.0); ABG OXYGEN SATURATION 97.2 % (95.0-98.0); ABG OXYHEMOGLOBIN 95.6 % (94.0-100.0); ABG PCO2 42 mmHg (35-45); ABG PH 7.399 (7.350-7.450); ABG TOTAL HEMOGLOBIN 8.1 G/dL (12.0-18.0); PO2, ARTERIAL BG 109.4 mmHg (92.0-100.0); TEMPERATURE, FAHRENHEIT, BG 99.8 FAHREN (96.0-98.6)
[2018-08-06 09:51] LABS: SITE, BLOOD GAS RT RADIAL
[2018-08-06] MEDS ORDERED: SODIUM CHLORIDE 0.9% 1,000 ML IV ONE (11:03)
[2018-08-06] MEDS ORDERED: HEPARIN SODIUM,PORCINE 1,000 UNITS/ML VIAL IVP ONE ×2 (12:00→18:25)
[2018-08-06 13:04] LABS: GLUCOMETER DEV NAME(LOC) 5S 2Q; GLUCOSE,POINT OF CARE 114 MG/DL (70-110)
[2018-08-06 13:04] LABS: GLUCOMETER DEV NAME(LOC) 5S 2Q; GLUCOSE,POINT OF CARE 221 MG/DL (70-110)
[2018-08-06 13:05] LABS: GLUCOMETER DEV NAME(LOC) 5S 2Q; GLUCOSE,POINT OF CARE 252 MG/DL (70-110)
[2018-08-06] MEDS: MEROPENEM 0.5 GM in SODIUM CHLORIDE 0.9% 100 ML IV SCH ×2 (14:47→23:40)
[2018-08-06 21:34] LABS: GLUCOMETER DEV NAME(LOC) 5S 2Q; GLUCOSE,POINT OF CARE 313 MG/DL (70-110)
[2018-08-07 04:17] VITALS: BP 137/77
[2018-08-07] MEDS: LORazepam 2 MG/ML VIAL IVP PRN ×2 (04:20→22:31)
[2018-08-07] MEDS: ALBUTEROL SULFATE 2.5 MG/0.5 ML NEB SOLUTION NEB PRN ×2 (04:24→08:18)
[2018-08-07] MEDS: IPRATROPIUM BROMIDE 0.5 MG/2.5 ML NEB SOLUTION NEB PRN ×2 (04:24→08:18)
[2018-08-07] MEDS: INSULIN LISPRO 100 UNITS/ML SQ PRN ×2 (06:42→13:23)
[2018-08-07] MEDS ORDERED: INSULIN GLARGINE,HUM.REC.ANLOG 100 UNITS/ML SQ ONE (07:00)
[2018-08-07] MEDS ORDERED: INSULIN LISPRO 100 UNITS/ML SQ ONE (07:00)
[2018-08-07 07:16] LABS: ALBUMIN 2.9 g/dL (3.4-5.0); BILIRUBIN,TOTAL 0.5 mg/dL (0.1-1.0); CALCIUM, TOTAL 7.8 mg/dL (8.8-10.5); CREATININE 3.13 mg/dL (0.60-1.30); POTASSIUM 5.6 mmol/L (3.5-5.1); TOTAL PROTEIN, SERUM 5.7 g/dL (6.4-8.2)
[2018-08-07] MEDS: AMYLASE/LIPASE/PROTEASE 60/12/38 MU DR CAPSULE PO SCH ×3 (08:00→18:00)
[2018-08-07 08:01] VITALS: BP 126/77
[2018-08-07] MEDS: VITAMIN B COMP/VIT C/FOLIC ACID CAPSULE GT SCH (09:00)
[2018-08-07] MEDS: DOCUSATE SODIUM 100 MG CAPSULE PO SCH ×2 (09:00→20:57)
[2018-08-07] MEDS: GABAPENTIN 400 MG CAPSULE PO SCH ×3 (09:00→20:56)
[2018-08-07] MEDS: BusPIRone HCL 15 MG TABLET PO SCH ×4 (09:00→22:32)
[2018-08-07 10:02] LABS: ABG A-A DIFF O2 596.2 mmHg (10-20.0); ABG BASE EXCESS -4.6 mmol/L (-2.0-3.0); ABG CARBOXYHEMOGLOBIN 1.9 % (0.0-1.5); ABG HCO3 20.8 mmol/L (22.0-26.0); ABG METHEMOGLOBIN 0.1 % (0.0-1.5); ABG OXYGEN CONTENT 10.6 mL/dL (15.0-23.0); ABG OXYGEN SATURATION 93.8 % (95.0-98.0); ABG OXYHEMOGLOBIN 91.9 % (94.0-100.0); ABG PCO2 45 mmHg (35-45); ABG PH 7.303 (7.350-7.450); ABG TOTAL HEMOGLOBIN 8.1 G/dL (12.0-18.0); PO2, ARTERIAL BG 71.8 mmHg (92.0-100.0); SOURCE, BLOOD GAS ARTERIAL; TEMPERATURE, FAHRENHEIT, BG 98.6 FAHREN (96.0-98.6)
[2018-08-07 10:03] LABS: O2 DEVICE,BLOOD GAS NON REBREATHER (ROOM AIR); SITE, BLOOD GAS LFT RADIAL
[2018-08-07] MEDS: HYDROCODONE/ACETAMINOPHEN 5-325 MG TABLET PO PRN ×2 (10:04→20:57)
[2018-08-07] MEDS ORDERED: SODIUM CHLORIDE 0.9% 1,000 ML IV ONE (11:55)
[2018-08-07 12:27] VITALS: BP 147/90
[2018-08-07 14:19] LABS: GLUCOMETER DEV NAME(LOC) 5N 2S; GLUCOSE,POINT OF CARE 441 MG/DL (70-110)
[2018-08-07 14:20] LABS: GLUCOMETER DEV NAME(LOC) 5N 2S; GLUCOSE,POINT OF CARE 235 MG/DL (70-110)
[2018-08-07 14:20] LABS: GLUCOMETER DEV NAME(LOC) 5S 2Q; GLUCOSE,POINT OF CARE 532 MG/DL (70-110)
[2018-08-07 16:02] VITALS: BP 148/112
[2018-08-07] MEDS: PANTOPRAZOLE SODIUM 40 MG/VIAL IVP SCH (17:36)
[2018-08-07] MEDS: EPOETIN ALFA 10,000 UNITS/ML VIAL SQ SCH (17:36)
[2018-08-07] MEDS: MEROPENEM 0.5 GM in SODIUM CHLORIDE 0.9% 100 ML IV SCH (17:36)
[2018-08-07] MEDS: HydrALAZINE HCL 25 MG TABLET PO SCH ×2 (17:37→22:32)
[2018-08-07] MEDS ORDERED: SODIUM CHLORIDE 0.9% 250 ML IV ONE (17:38)
[2018-08-07 20:15] VITALS: BP 127/83
[2018-08-07 22:31] VITALS: BP 120/80
[2018-08-08] VITALS (9 sets, daily range): BP systolic 111–131; BP diastolic 69–87
[2018-08-08] MEDS: MEROPENEM 0.5 GM in SODIUM CHLORIDE 0.9% 100 ML IV SCH ×2 (00:53→11:47)
[2018-08-08 04:05] LABS: GLUCOMETER DEV NAME(LOC) 5S 1N; GLUCOSE,POINT OF CARE 114 MG/DL (70-110)
[2018-08-08 06:33] LABS: BASOPHILS % (AUTO) 0.4 % (0.0-2.0); EOSINOPHILS % (AUTO) 0.3 % (1.0-6.0); HEMATOCRIT 24.5 % (41-53); HEMOGLOBIN 8.1 g/dL (13.5-17.5); LYMPHOCYTES # (AUTO) 0.8 K/uL (1.0-4.8); LYMPHOCYTES % (AUTO) 3.4 % (22.0-44.0); MEAN CORPUSCULAR HEMOGLOBIN 28.4 pg (26.0-34.0); MEAN CORPUSCULAR HGB CONC 32.9 G/dL (31.0-37.0); MEAN CORPUSCULAR VOLUME 86 fL (80-100); MONOCYTES # (AUTO) 1.2 K/uL (0.1-1.0); NEUTROPHILS # (AUTO) 22.1 K/uL (1.8-7.7); PLATELET COUNT (AUTO) 255 K/uL (150-450); RED BLOOD CELL COUNT(AUTO) 2.85 MIL/uL (4.50-5.90); RED CELL DISTRIBUTION WIDTH 15.2 % (11.5-14.5)
[2018-08-08 06:36] LABS: GLUCOMETER DEV NAME(LOC) 5S 2R; GLUCOSE,POINT OF CARE 81 MG/DL (70-110)
[2018-08-08 06:54] LABS: CALCIUM, TOTAL 8.1 mg/dL (8.8-10.5); CREATININE 1.93 mg/dL (0.60-1.30); POTASSIUM 4.5 mmol/L (3.5-5.1)
[2018-08-08 07:00] LABS: NEUTROPHILS % (AUTO) 90.9 % (40.0-70.0)
[2018-08-08] MEDS: ALBUTEROL SULFATE 2.5 MG/0.5 ML NEB SOLUTION NEB PRN ×3 (08:07→15:48)
[2018-08-08] MEDS: IPRATROPIUM BROMIDE 0.5 MG/2.5 ML NEB SOLUTION NEB PRN ×3 (08:07→15:48)
[2018-08-08] MEDS: GABAPENTIN 400 MG CAPSULE PO SCH ×3 (08:28→20:22)
[2018-08-08] MEDS: BusPIRone HCL 15 MG TABLET PO SCH ×4 (08:28→20:22)
[2018-08-08] MEDS: PANTOPRAZOLE SODIUM 40 MG/VIAL IVP SCH (08:28)
[2018-08-08] MEDS: VITAMIN B COMP/VIT C/FOLIC ACID CAPSULE GT SCH (08:28)
[2018-08-08] MEDS: HydrALAZINE HCL 25 MG TABLET PO SCH ×2 (08:28→20:21)
[2018-08-08] MEDS: DOCUSATE SODIUM 100 MG CAPSULE PO SCH ×2 (08:28→20:22)
[2018-08-08] MEDS: AMYLASE/LIPASE/PROTEASE 60/12/38 MU DR CAPSULE PO SCH ×3 (08:28→17:30)
[2018-08-08] MEDS: LORazepam 2 MG/ML VIAL IVP PRN ×2 (11:06→20:22)
[2018-08-08 11:18] LABS: ABG A-A DIFF O2 452.4 mmHg (10-20.0); ABG BASE EXCESS 0.4 mmol/L (-2.0-3.0); ABG CARBOXYHEMOGLOBIN 1.2 % (0.0-1.5); ABG HCO3 24.9 mmol/L (22.0-26.0); ABG METHEMOGLOBIN 0.3 % (0.0-1.5); ABG OXYGEN CONTENT 11.2 mL/dL (15.0-23.0); ABG OXYGEN SATURATION 96.2 % (95.0-98.0); ABG OXYHEMOGLOBIN 94.8 % (94.0-100.0); ABG PCO2 37 mmHg (35-45); ABG TOTAL HEMOGLOBIN 8.3 G/dL (12.0-18.0); PO2, ARTERIAL BG 80.4 mmHg (92.0-100.0); SOURCE, BLOOD GAS ARTERIAL; TEMPERATURE, FAHRENHEIT, BG 97.6 FAHREN (96.0-98.6)
[2018-08-08 11:19] LABS: INSPIRATORY TIME, BG 1 SEC; O2 DEVICE,BLOOD GAS BIPAP (ROOM AIR); SITE, BLOOD GAS RT RADIAL; SPONTANEOUS VT, BG 800 ml
[2018-08-08] MEDS: INSULIN LISPRO 100 UNITS/ML SQ PRN (11:43)
[2018-08-09] VITALS: BP 132/81
[2018-08-09] MEDS: MEROPENEM 500 MG in SODIUM CHLORIDE 0.9% 50 ML IV SCH ×3 (00:10→23:59)
[2018-08-09] MEDS ORDERED: RAPID SEQUENCE KIT [RSI] 1 EACH KIT ONE (01:24)
[2018-08-09 02:24] LABS: GLUCOSE,POINT OF CARE 151 MG/DL (70-110)
[2018-08-09 02:24] LABS: GLUCOSE,POINT OF CARE 198 MG/DL (70-110)
[2018-08-09 02:24] LABS: GLUCOSE,POINT OF CARE 67 MG/DL (70-110)
[2018-08-09 02:24] LABS: GLUCOSE,POINT OF CARE 77 MG/DL (70-110)
[2018-08-09 03:56] LABS: GLUCOMETER DEV NAME(LOC) 5N 1P; GLUCOSE,POINT OF CARE 75 MG/DL (70-110)
[2018-08-09 03:56] LABS: GLUCOMETER DEV NAME(LOC) 5N 1P; GLUCOSE,POINT OF CARE 132 MG/DL (70-110)
[2018-08-09 03:56] LABS: GLUCOMETER DEV NAME(LOC) 5N 1P; GLUCOSE,POINT OF CARE 295 MG/DL (70-110)
[2018-08-09 03:56] LABS: GLUCOMETER DEV NAME(LOC) 5N 1P; GLUCOSE,POINT OF CARE 226 MG/DL (70-110)
[2018-08-09 04:00] VITALS: BP 129/87
[2018-08-09 05:00] LABS: BASOPHILS % (AUTO) 0.1 % (0.0-2.0); EOSINOPHILS % (AUTO) 0 % (1.0-6.0); HEMATOCRIT 23.1 % (41-53); HEMOGLOBIN 7.6 g/dL (13.5-17.5); LYMPHOCYTES # (AUTO) 0.7 K/uL (1.0-4.8); LYMPHOCYTES % (AUTO) 2.3 % (22.0-44.0); MEAN CORPUSCULAR HEMOGLOBIN 28.2 pg (26.0-34.0); MEAN CORPUSCULAR VOLUME 86 fL (80-100); MONOCYTES # (AUTO) 1.1 K/uL (0.1-1.0); NEUTROPHILS # (AUTO) 26.8 K/uL (1.8-7.7); PLATELET COUNT (AUTO) 286 K/uL (150-450); RED CELL DISTRIBUTION WIDTH 15.6 % (11.5-14.5)
[2018-08-09 05:04] LABS: NEUTROPHILS % (AUTO) 93.6 % (40.0-70.0)
[2018-08-09 05:15] LABS: ALBUMIN 2.6 g/dL (3.4-5.0); BILIRUBIN,TOTAL 0.6 mg/dL (0.1-1.0); CALCIUM, TOTAL 7.9 mg/dL (8.8-10.5); CREATININE 2.32 mg/dL (0.60-1.30); MAGNESIUM 1.4 mg/dL (1.80-2.40); PHOSPHORUS 4.2 mg/dL (2.5-4.9); POTASSIUM 4.4 mmol/L (3.5-5.1); TOTAL PROTEIN, SERUM 5.6 g/dL (6.4-8.2)
[2018-08-09] MEDS: LORazepam 2 MG/ML VIAL IVP PRN ×2 (06:31→21:40)
[2018-08-09] MEDS ORDERED: SODIUM CHLORIDE 0.9% 2,000 ML IV ONE (07:57)
[2018-08-09 08:00] VITALS: BP 125/78
[2018-08-09] MEDS ORDERED: MAGNESIUM OXIDE 400 MG TABLET PO ONE (08:30)
[2018-08-09] MEDS: AMYLASE/LIPASE/PROTEASE 60/12/38 MU DR CAPSULE PO SCH ×3 (09:15→17:01)
[2018-08-09] MEDS: VITAMIN B COMP/VIT C/FOLIC ACID CAPSULE GT SCH (09:18)
[2018-08-09] MEDS: PANTOPRAZOLE SODIUM 40 MG/VIAL IVP SCH (09:18)
[2018-08-09] MEDS: DOCUSATE SODIUM 100 MG CAPSULE PO SCH ×2 (09:18→21:06)
[2018-08-09] MEDS: BusPIRone HCL 15 MG TABLET PO SCH ×4 (09:22→21:06)
[2018-08-09] MEDS ORDERED: HEPARIN SODIUM,PORCINE 1,000 UNITS/ML VIAL IVP ONE ×3 (09:45→16:12)
[2018-08-09] MEDS ORDERED: MANNITOL 25%-12.5 GM/50 ML VIAL IVP PRN (09:45)
[2018-08-09] MEDS: GABAPENTIN 400 MG CAPSULE PO SCH ×3 (11:07→21:06)
[2018-08-09] MEDS: HYDROCODONE/ACETAMINOPHEN 5-325 MG TABLET PO PRN (11:07)
[2018-08-09 12:00] VITALS: BP 123/94
[2018-08-09] MEDS: HydrALAZINE HCL 25 MG TABLET PO SCH ×2 (12:09→21:06)
[2018-08-09] MEDS: EPOETIN ALFA 10,000 UNITS/ML VIAL SQ SCH (12:09)
[2018-08-09 12:46] LABS: ABG A-A DIFF O2 324.3 mmHg (10-20.0); ABG BASE EXCESS 2.8 mmol/L (-2.0-3.0); ABG CARBOXYHEMOGLOBIN 1.7 % (0.0-1.5); ABG HCO3 26.7 mmol/L (22.0-26.0); ABG METHEMOGLOBIN 0.3 % (0.0-1.5); ABG OXYGEN CONTENT 9.9 mL/dL (15.0-23.0); ABG OXYGEN SATURATION 91.2 % (95.0-98.0); ABG OXYHEMOGLOBIN 89.4 % (94.0-100.0); ABG PCO2 41 mmHg (35-45); ABG PH 7.438 (7.350-7.450); ABG TOTAL HEMOGLOBIN 7.8 G/dL (12.0-18.0); INSPIRATORY TIME, BG 1 SEC; O2 DEVICE,BLOOD GAS BIPAP (ROOM AIR); PO2, ARTERIAL BG 59.2 mmHg (92.0-100.0); SITE, BLOOD GAS RT RADIAL; SOURCE, BLOOD GAS ARTERIAL; SPONTANEOUS VT, BG 550 ml
[2018-08-09 12:54] LABS: GLUCOSE,POINT OF CARE 92 MG/DL (70-110)
[2018-08-09 12:54] LABS: GLUCOSE,POINT OF CARE 75 MG/DL (70-110)
[2018-08-09 16:04] VITALS: BP 110/65
[2018-08-09] MEDS: MetroNIDAZOLE 500 MG TABLET PO SCH ×2 (17:00→23:59)
[2018-08-09 17:57] LABS: APPEARANCE,URINE CLOUDY (CLEAR); BILIRUBIN,URINE NEGATIVE (NEGATIVE); GLUCOSE, URINE (UA) 250 mg/dL (NEGATIVE); KETONES,URINE TRACE mg/dL (NEGATIVE); LEUKOCYTE ESTERASE ,URINE TRACE (NEGATIVE); NITRATE,URINE NEGATIVE (NEGATIVE); OCCULT BLOOD,URINE NEGATIVE (NEGATIVE); PROTEIN,URINE SEE CONFIRM (NEGATIVE); UROBILINOGEN,URINE 0.2 mg/dL (<=1.0)
[2018-08-09 18:10] LABS: BACTERIA,URINE Few /HPF (None Seen); RBC,URINE 0-2 /HPF (0-2); SQUAMOUS EPITHELIAL CELL,UR Rare /LPF (None Seen); SULFOSALICYLIC ACID,URINE 3+ (Negative)
[2018-08-09] MEDS: INSULIN LISPRO 100 UNITS/ML SQ PRN (18:23)
[2018-08-09 20:00] VITALS: BP 133/82
[2018-08-09] MEDS ORDERED: SODIUM CHLORIDE 0.9% 250 ML IV ONE (23:56)
[2018-08-10] VITALS (7 sets, daily range): BP systolic 101–135; BP diastolic 50–76
[2018-08-10] MEDS: ACETAMINOPHEN 325 MG TABLET PO PRN
[2018-08-10] MEDS: INSULIN LISPRO 100 UNITS/ML SQ PRN ×3 (00:32→18:58)
[2018-08-10 04:49] LABS: BASOPHILS % (AUTO) 0.3 % (0.0-2.0); EOSINOPHILS % (AUTO) 0.4 % (1.0-6.0); HEMATOCRIT 22.6 % (41-53); HEMOGLOBIN 7.4 g/dL (13.5-17.5); LYMPHOCYTES # (AUTO) 0.7 K/uL (1.0-4.8); LYMPHOCYTES % (AUTO) 3.3 % (22.0-44.0); MEAN CORPUSCULAR HEMOGLOBIN 27.9 pg (26.0-34.0); MEAN CORPUSCULAR HGB CONC 32.6 G/dL (31.0-37.0); MEAN CORPUSCULAR VOLUME 86 fL (80-100); MONOCYTES # (AUTO) 0.8 K/uL (0.1-1.0); MONOCYTES % (AUTO) 3.8 % (2.0-9.0); NEUTROPHILS # (AUTO) 19.8 K/uL (1.8-7.7); NEUTROPHILS % (AUTO) 92.2 % (40.0-70.0); PLATELET COUNT (AUTO) 276 K/uL (150-450); RED BLOOD CELL COUNT(AUTO) 2.64 MIL/uL (4.50-5.90); RED CELL DISTRIBUTION WIDTH 15.6 % (11.5-14.5)
[2018-08-10 05:04] LABS: CALCIUM, TOTAL 8.3 mg/dL (8.8-10.5); CREATININE 2.15 mg/dL (0.60-1.30); MAGNESIUM 1.7 mg/dL (1.80-2.40); PHOSPHORUS 3.7 mg/dL (2.5-4.9); POTASSIUM 3.8 mmol/L (3.5-5.1)
[2018-08-10] MEDS: HYDROCODONE/ACETAMINOPHEN 5-325 MG TABLET PO PRN ×3 (08:13→21:40)
[2018-08-10] MEDS: PANTOPRAZOLE SODIUM 40 MG/VIAL IVP SCH (08:13)
[2018-08-10] MEDS: VITAMIN B COMP/VIT C/FOLIC ACID CAPSULE GT SCH (08:14)
[2018-08-10] MEDS: HydrALAZINE HCL 25 MG TABLET PO SCH ×2 (08:14→20:25)
[2018-08-10] MEDS: MetroNIDAZOLE 500 MG TABLET PO SCH ×2 (08:14→16:58)
[2018-08-10] MEDS: LORazepam 2 MG/ML VIAL IVP PRN ×2 (08:14→20:25)
[2018-08-10] MEDS: BusPIRone HCL 15 MG TABLET PO SCH ×4 (08:15→20:25)
[2018-08-10] MEDS: AMYLASE/LIPASE/PROTEASE 60/12/38 MU DR CAPSULE PO SCH ×3 (08:15→16:58)
[2018-08-10] MEDS: DOCUSATE SODIUM 100 MG CAPSULE PO SCH ×2 (08:16→20:26)
[2018-08-10] MEDS: GABAPENTIN 400 MG CAPSULE PO SCH ×3 (09:00→20:26)
[2018-08-10 09:44] LABS: ABG A-A DIFF O2 219.9 mmHg (10-20.0); ABG BASE EXCESS -0.5 mmol/L (-2.0-3.0); ABG CARBOXYHEMOGLOBIN 1.5 % (0.0-1.5); ABG HCO3 24.1 mmol/L (22.0-26.0); ABG METHEMOGLOBIN 0.3 % (0.0-1.5); ABG OXYGEN CONTENT 10.2 mL/dL (15.0-23.0); ABG OXYGEN SATURATION 95.5 % (95.0-98.0); ABG OXYHEMOGLOBIN 93.8 % (94.0-100.0); ABG PCO2 41 mmHg (35-45); PO2, ARTERIAL BG 88.7 mmHg (92.0-100.0); SOURCE, BLOOD GAS ARTERIAL; TEMPERATURE, FAHRENHEIT, BG 100.4 FAHREN (96.0-98.6)
[2018-08-10 09:47] LABS: ABG TOTAL HEMOGLOBIN 7.6 G/dL (12.0-18.0); SITE, BLOOD GAS LFT BRACHIAL
[2018-08-10 09:48] LABS: O2 DEVICE,BLOOD GAS BIPAP (ROOM AIR)
[2018-08-10] MEDS: MEROPENEM 500 MG in SODIUM CHLORIDE 0.9% 50 ML IV SCH (13:07)
[2018-08-10 19:53] LABS: GLUCOSE,POINT OF CARE 292 MG/DL (70-110)
[2018-08-10 19:53] LABS: GLUCOSE,POINT OF CARE 126 MG/DL (70-110)
[2018-08-10 19:53] LABS: GLUCOSE,POINT OF CARE 195 MG/DL (70-110)
[2018-08-10 20:20] LABS: GLUCOSE,POINT OF CARE 330 MG/DL (70-110)
[2018-08-10 20:20] LABS: GLUCOSE,POINT OF CARE 188 MG/DL (70-110)
[2018-08-11] VITALS (7 sets, daily range): BP systolic 113–147; BP diastolic 59–97
[2018-08-11] MEDS ORDERED: SODIUM CHLORIDE 0.9% 250 ML IV ONE ×2 (00:04→16:51)
[2018-08-11] MEDS: MetroNIDAZOLE 500 MG TABLET PO SCH ×4 (00:30→23:24)
[2018-08-11] MEDS: MEROPENEM 500 MG in SODIUM CHLORIDE 0.9% 50 ML IV SCH ×3 (00:30→23:24)
[2018-08-11] MEDS: INSULIN LISPRO 100 UNITS/ML SQ PRN ×4 (00:31→18:14)
[2018-08-11] MEDS: HYDROCODONE/ACETAMINOPHEN 5-325 MG TABLET PO PRN ×2 (02:17→19:56)
[2018-08-11 04:28] LABS: GLUCOSE,POINT OF CARE 275 MG/DL (70-110)
[2018-08-11 05:21] LABS: BASOPHILS % (AUTO) 0.5 % (0.0-2.0); EOSINOPHILS % (AUTO) 1.9 % (1.0-6.0); HEMATOCRIT 21.9 % (41-53); HEMOGLOBIN 7.1 g/dL (13.5-17.5); LYMPHOCYTES # (AUTO) 0.7 K/uL (1.0-4.8); LYMPHOCYTES % (AUTO) 5.6 % (22.0-44.0); MEAN CORPUSCULAR HEMOGLOBIN 27.6 pg (26.0-34.0); MEAN CORPUSCULAR HGB CONC 32.3 G/dL (31.0-37.0); MEAN CORPUSCULAR VOLUME 85 fL (80-100); MONOCYTES # (AUTO) 0.7 K/uL (0.1-1.0); MONOCYTES % (AUTO) 5.7 % (2.0-9.0); NEUTROPHILS # (AUTO) 10.6 K/uL (1.8-7.7); PLATELET COUNT (AUTO) 275 K/uL (150-450); RED BLOOD CELL COUNT(AUTO) 2.56 MIL/uL (4.50-5.90); RED CELL DISTRIBUTION WIDTH 15.6 % (11.5-14.5)
[2018-08-11 05:22] LABS: NEUTROPHILS % (AUTO) 86.3 % (40.0-70.0)
[2018-08-11 05:33] LABS: ALBUMIN 2.2 g/dL (3.4-5.0); BILIRUBIN,TOTAL 0.6 mg/dL (0.1-1.0); CALCIUM, TOTAL 8.1 mg/dL (8.8-10.5); CREATININE 2.73 mg/dL (0.60-1.30); MAGNESIUM 1.9 mg/dL (1.80-2.40); POTASSIUM 3.4 mmol/L (3.5-5.1); TOTAL PROTEIN, SERUM 5.6 g/dL (6.4-8.2)
[2018-08-11 08:19] LABS: GLUCOSE,POINT OF CARE 226 MG/DL (70-110)
[2018-08-11 08:29] LABS: ABG BASE EXCESS -1.6 mmol/L (-2.0-3.0); ABG CARBOXYHEMOGLOBIN 1.5 % (0.0-1.5); ABG HCO3 23.1 mmol/L (22.0-26.0); ABG METHEMOGLOBIN 0.3 % (0.0-1.5); ABG OXYGEN CONTENT 10.9 mL/dL (15.0-23.0); ABG OXYGEN SATURATION 88.6 % (95.0-98.0); ABG PCO2 40 mmHg (35-45); ABG PH 7.388 (7.350-7.450); ABG TOTAL HEMOGLOBIN 8.9 G/dL (12.0-18.0); SOURCE, BLOOD GAS ARTERIAL; TEMPERATURE, FAHRENHEIT, BG 98.6 FAHREN (96.0-98.6)
[2018-08-11] MEDS: PANTOPRAZOLE SODIUM 40 MG/VIAL IVP SCH (08:29)
[2018-08-11] MEDS: BusPIRone HCL 15 MG TABLET PO SCH ×4 (08:29→20:39)
[2018-08-11] MEDS: EPOETIN ALFA 10,000 UNITS/ML VIAL SQ SCH (08:29)
[2018-08-11 08:30] LABS: O2 DEVICE,BLOOD GAS BIPAP (ROOM AIR); PO2, ARTERIAL BG 54.8 mmHg (92.0-100.0); SITE, BLOOD GAS RT BRACHIAL
[2018-08-11] MEDS: AMYLASE/LIPASE/PROTEASE 60/12/38 MU DR CAPSULE PO SCH ×3 (08:30→16:55)
[2018-08-11] MEDS: GABAPENTIN 400 MG CAPSULE PO SCH ×3 (08:30→20:39)
[2018-08-11] MEDS: DOCUSATE SODIUM 100 MG CAPSULE PO SCH ×2 (08:30→20:41)
[2018-08-11] MEDS: VITAMIN B COMP/VIT C/FOLIC ACID CAPSULE GT SCH (08:30)
[2018-08-11 08:31] LABS: PRESSURE SUPPORT, BG 12 cm H2O; SPONTANEOUS VT, BG 480 ml
[2018-08-11] MEDS: HydrALAZINE HCL 25 MG TABLET PO SCH ×2 (08:35→20:39)
[2018-08-11] MEDS: LORazepam 2 MG/ML VIAL IVP PRN ×2 (08:36→17:06)
[2018-08-11 12:14] LABS: GLUCOSE,POINT OF CARE 269 MG/DL (70-110)
[2018-08-11] MEDS ORDERED: HEPARIN SODIUM,PORCINE 1,000 UNITS/ML VIAL IVP ONE (17:54)
[2018-08-12] VITALS (10 sets, daily range): BP systolic 109–134; BP diastolic 42–85
[2018-08-12] MEDS: INSULIN LISPRO 100 UNITS/ML SQ PRN ×4 (00:34→18:12)
[2018-08-12] MEDS: HYDROCODONE/ACETAMINOPHEN 5-325 MG TABLET PO PRN ×2 (00:35→04:17)
[2018-08-12] MEDS: LORazepam 2 MG/ML VIAL IVP PRN ×2 (01:18→07:27)
[2018-08-12 05:05] LABS: GLUCOSE,POINT OF CARE 201 MG/DL (70-110)
[2018-08-12 05:05] LABS: GLUCOSE,POINT OF CARE 202 MG/DL (70-110)
[2018-08-12 05:14] LABS: CALCIUM, TOTAL 8.3 mg/dL (8.8-10.5); CREATININE 1.72 mg/dL (0.60-1.30); MAGNESIUM 1.6 mg/dL (1.80-2.40); PHOSPHORUS 2.1 mg/dL (2.5-4.9); POTASSIUM 3.6 mmol/L (3.5-5.1)
[2018-08-12] MEDS: VITAMIN B COMP/VIT C/FOLIC ACID CAPSULE GT SCH (08:06)
[2018-08-12] MEDS: AMYLASE/LIPASE/PROTEASE 60/12/38 MU DR CAPSULE PO SCH ×3 (08:06→17:13)
[2018-08-12] MEDS: PANTOPRAZOLE SODIUM 40 MG/VIAL IVP SCH (08:06)
[2018-08-12] MEDS: MetroNIDAZOLE 500 MG TABLET PO SCH ×2 (08:06→17:11)
[2018-08-12] MEDS: HydrALAZINE HCL 25 MG TABLET PO SCH ×2 (08:07→21:00)
[2018-08-12] MEDS: BusPIRone HCL 15 MG TABLET PO SCH ×4 (08:07→21:00)
[2018-08-12] MEDS: DOCUSATE SODIUM 100 MG CAPSULE PO SCH ×2 (08:07→21:00)
[2018-08-12] MEDS: GABAPENTIN 400 MG CAPSULE PO SCH ×2 (08:07→17:11)
[2018-08-12 10:34] LABS: ABG BASE EXCESS 0.7 mmol/L (-2.0-3.0); ABG CARBOXYHEMOGLOBIN 1.4 % (0.0-1.5); ABG HCO3 24.9 mmol/L (22.0-26.0); ABG METHEMOGLOBIN 0.3 % (0.0-1.5); ABG OXYGEN CONTENT 10.3 mL/dL (15.0-23.0); ABG OXYGEN SATURATION 94.2 % (95.0-98.0); ABG OXYHEMOGLOBIN 92.6 % (94.0-100.0); ABG PCO2 42 mmHg (35-45); ABG PH 7.399 (7.350-7.450); PO2, ARTERIAL BG 63.5 mmHg (92.0-100.0); SOURCE, BLOOD GAS ARTERIAL; TEMPERATURE, FAHRENHEIT, BG 95.1 FAHREN (96.0-98.6)
[2018-08-12 10:35] LABS: ABG TOTAL HEMOGLOBIN 7.8 G/dL (12.0-18.0); O2 DEVICE,BLOOD GAS BIPAP (ROOM AIR); SITE, BLOOD GAS LFT RADIAL
[2018-08-12] MEDS: MEROPENEM 500 MG in SODIUM CHLORIDE 0.9% 50 ML IV SCH (12:03)
[2018-08-12] MEDS ORDERED: RAPID SEQUENCE KIT [RSI] 1 EACH KIT ONE (12:49)
[2018-08-12] MEDS ORDERED: PROPOFOL 1000 MG/ISO-OSM 100 ML IV ONE (13:04)
[2018-08-12 13:20] LABS: ABG A-A DIFF O2 624.5 mmHg (10-20.0); ABG BASE EXCESS -4.6 mmol/L (-2.0-3.0); ABG CARBOXYHEMOGLOBIN 1.6 % (0.0-1.5); ABG HCO3 20.5 mmol/L (22.0-26.0); ABG METHEMOGLOBIN 0.3 % (0.0-1.5); ABG OXYGEN CONTENT 8.3 mL/dL (15.0-23.0); ABG OXYHEMOGLOBIN 74.9 % (94.0-100.0); ABG PCO2 48 mmHg (35-45); SOURCE, BLOOD GAS ARTERIAL; TEMPERATURE, FAHRENHEIT, BG 97.5 FAHREN (96.0-98.6)
[2018-08-12 13:21] LABS: ABG OXYGEN SATURATION 76.4 % (95.0-98.0); ABG PH 7.282 (7.350-7.450); ABG TOTAL HEMOGLOBIN 7.8 G/dL (12.0-18.0); O2 DEVICE,BLOOD GAS VENTILATOR (ROOM AIR); PEEP,BG 5 cm H2O; PO2, ARTERIAL BG 42.2 mmHg (92.0-100.0); SITE, BLOOD GAS LFT BRACHIAL; VT, ABG 450 ml
[2018-08-12] MEDS ORDERED: IPRATROPIUM BROMIDE 0.5 MG/2.5 ML NEB SOLUTION NEB ONE (13:30)
[2018-08-12] MEDS ORDERED: ALBUTEROL SULFATE 5 MG/ML 20 ML NEB SOLN [BULK] NEB ONE (13:30)
[2018-08-12] MEDS ORDERED: 0.9% SODIUM CHLORIDE 15 ML NEB SOLUTION NEB ONE (13:35)
[2018-08-12] MEDS ORDERED: DOPamine HCL 400 MG/D5%-WATER 250 ML IV PRN (13:47)
[2018-08-12] MEDS ORDERED: NOREPINEPHRINE 4 MG/D5%-WATER 250 ML IV PRN (13:48)
[2018-08-12] MEDS: NOREPINEPHRINE 4 MG/D5%-WATER 250 ML IV PRN (13:55)
[2018-08-12] MEDS: PROPOFOL 1000 MG/ISO-OSM 100 ML IV SCH ×2 (14:00→20:07)
[2018-08-12] MEDS ORDERED: SODIUM CHLORIDE 0.9% 500 ML IV ONE ×2 (14:30→22:24)
[2018-08-12] MEDS ORDERED: HEPARIN SODIUM,PORCINE 1,000 UNITS/ML VIAL IVP ONE ×2 (15:00)
[2018-08-12] MEDS ORDERED: VANCOMYCIN HCL 1 GM/D5% WATER 200 ML IV ONE (16:00)
[2018-08-12 16:31] LABS: ABG A-A DIFF O2 447.9 mmHg (10-20.0); ABG CARBOXYHEMOGLOBIN 1.2 % (0.0-1.5); ABG HCO3 23.7 mmol/L (22.0-26.0); ABG METHEMOGLOBIN 0.2 % (0.0-1.5); ABG OXYGEN CONTENT 9.5 mL/dL (15.0-23.0); ABG OXYHEMOGLOBIN 97.6 % (94.0-100.0); ABG PCO2 40 mmHg (35-45); ABG PH 7.393 (7.350-7.450); ABG TOTAL HEMOGLOBIN 6.5 G/dL (12.0-18.0); O2 DEVICE,BLOOD GAS VENTILATOR (ROOM AIR); PEEP,BG 5 cm H2O; PO2, ARTERIAL BG 227.7 mmHg (92.0-100.0); SITE, BLOOD GAS ARTERIAL LINE; SOURCE, BLOOD GAS ARTERIAL; TEMPERATURE, FAHRENHEIT, BG 96.6 FAHREN (96.0-98.6); VT, ABG 350 ml
[2018-08-12 16:55] LABS: BASOPHILS % (AUTO) 0.6 % (0.0-2.0); EOSINOPHILS % (AUTO) 0.2 % (1.0-6.0); LYMPHOCYTES # (AUTO) 0.3 K/uL (1.0-4.8); LYMPHOCYTES % (AUTO) 3.3 % (22.0-44.0); MEAN CORPUSCULAR HEMOGLOBIN 27.7 pg (26.0-34.0); MEAN CORPUSCULAR HGB CONC 32.4 G/dL (31.0-37.0); MEAN CORPUSCULAR VOLUME 86 fL (80-100); MONOCYTES # (AUTO) 0.7 K/uL (0.1-1.0); MONOCYTES % (AUTO) 7.1 % (2.0-9.0); NEUTROPHILS # (AUTO) 8.6 K/uL (1.8-7.7); PLATELET COUNT (AUTO) 224 K/uL (150-450); RED BLOOD CELL COUNT(AUTO) 2.23 MIL/uL (4.50-5.90); RED CELL DISTRIBUTION WIDTH 15.6 % (11.5-14.5)
[2018-08-12] MEDS ORDERED: SODIUM CHLORIDE 0.9% 2,000 ML IV ONE (16:58)
[2018-08-12 17:04] LABS: GLUCOSE,POINT OF CARE 191 MG/DL (70-110)
[2018-08-12 17:08] LABS: HEMATOCRIT 19.1 % (41-53); HEMOGLOBIN 6.2 g/dL (13.5-17.5); NEUTROPHILS % (AUTO) 88.8 % (40.0-70.0)
[2018-08-12 18:15] LABS: GLUCOSE,POINT OF CARE 300 MG/DL (70-110)
[2018-08-12] MEDS ORDERED: MANNITOL 25%-12.5 GM/50 ML VIAL IVP PRN (19:00)
[2018-08-12] MEDS: ALBUTEROL SULFATE 2.5 MG/0.5 ML NEB SOLUTION NEB SCH ×2 (19:22→22:38)
[2018-08-12] MEDS: IPRATROPIUM BROMIDE 0.5 MG/2.5 ML NEB SOLUTION NEB SCH ×2 (19:23→22:38)
[2018-08-12] MEDS ORDERED: ALTEPLASE 2 MG/VIAL IVCATH ONE (19:45)
[2018-08-13] VITALS (14 sets, daily range): BP systolic 98–152; BP diastolic 30–74
[2018-08-13] MEDS: MetroNIDAZOLE 500 MG TABLET PO SCH ×4 (00:48→23:24)
[2018-08-13] MEDS: MEROPENEM 500 MG in SODIUM CHLORIDE 0.9% 50 ML IV SCH ×3 (00:48→23:24)
[2018-08-13] MEDS: GABAPENTIN 400 MG CAPSULE PO SCH ×4 (00:49→21:11)
[2018-08-13] MEDS: INSULIN LISPRO 100 UNITS/ML SQ PRN ×4 (01:15→23:42)
[2018-08-13] MEDS: PROPOFOL 1000 MG/ISO-OSM 100 ML IV SCH ×4 (03:25→21:53)
[2018-08-13] MEDS: IPRATROPIUM BROMIDE 0.5 MG/2.5 ML NEB SOLUTION NEB SCH ×6 (03:41→23:18)
[2018-08-13] MEDS: ALBUTEROL SULFATE 2.5 MG/0.5 ML NEB SOLUTION NEB SCH ×6 (03:41→23:18)
[2018-08-13 05:00] LABS: BASOPHILS % (AUTO) 0.5 % (0.0-2.0); EOSINOPHILS % (AUTO) 1.5 % (1.0-6.0); HEMATOCRIT 23.7 % (41-53); HEMOGLOBIN 8.2 g/dL (13.5-17.5); LYMPHOCYTES # (AUTO) 0.5 K/uL (1.0-4.8); LYMPHOCYTES % (AUTO) 4.5 % (22.0-44.0); MEAN CORPUSCULAR HEMOGLOBIN 29.7 pg (26.0-34.0); MEAN CORPUSCULAR HGB CONC 34.6 G/dL (31.0-37.0); MEAN CORPUSCULAR VOLUME 86 fL (80-100); MONOCYTES # (AUTO) 0.8 K/uL (0.1-1.0); MONOCYTES % (AUTO) 7.4 % (2.0-9.0); NEUTROPHILS # (AUTO) 8.8 K/uL (1.8-7.7); PLATELET COUNT (AUTO) 215 K/uL (150-450); RED BLOOD CELL COUNT(AUTO) 2.77 MIL/uL (4.50-5.90); RED CELL DISTRIBUTION WIDTH 14.7 % (11.5-14.5)
[2018-08-13 05:02] LABS: NEUTROPHILS % (AUTO) 86.1 % (40.0-70.0)
[2018-08-13 05:13] LABS: BILIRUBIN,TOTAL 0.7 mg/dL (0.1-1.0); CALCIUM, TOTAL 7.6 mg/dL (8.8-10.5); CREATININE 2.28 mg/dL (0.60-1.30); POTASSIUM 3.8 mmol/L (3.5-5.1); TOTAL PROTEIN, SERUM 5.4 g/dL (6.4-8.2); VANCOMYCIN,RANDOM 24.8 mcg/mL (25.0-50.0)
[2018-08-13] MEDS ORDERED: VANCOMYCIN HCL 1 GM/D5% WATER 200 ML IV PRN (07:45)
[2018-08-13] MEDS: HydrALAZINE HCL 25 MG TABLET PO SCH ×2 (09:00→20:35)
[2018-08-13] MEDS: DOCUSATE SODIUM 100 MG CAPSULE PO SCH ×2 (09:00→20:34)
[2018-08-13] MEDS: BusPIRone HCL 15 MG TABLET PO SCH ×4 (09:30→20:35)
[2018-08-13] MEDS: PANTOPRAZOLE SODIUM 40 MG/VIAL IVP SCH (09:31)
[2018-08-13] MEDS: AMYLASE/LIPASE/PROTEASE 60/12/38 MU DR CAPSULE PO SCH ×3 (09:31→18:05)
[2018-08-13] MEDS: VITAMIN B COMP/VIT C/FOLIC ACID CAPSULE GT SCH (09:34)
[2018-08-13 09:56] LABS: SITE, BLOOD GAS ARTERIAL LINE; SOURCE, BLOOD GAS ARTERIAL; TEMPERATURE, FAHRENHEIT, BG 98.6 FAHREN (96.0-98.6)
[2018-08-13 09:57] LABS: ABG HCO3 23.4 mmol/L (22.0-26.0); ABG PCO2 47 mmHg (35-45); ABG PH 7.333 (7.350-7.450); PO2, ARTERIAL BG 121.9 mmHg (92.0-100.0)
[2018-08-13 09:58] LABS: ABG BASE EXCESS -1.3 mmol/L (-2.0-3.0); ABG CARBOXYHEMOGLOBIN 1.1 % (0.0-1.5); ABG METHEMOGLOBIN 0.2 % (0.0-1.5); ABG OXYGEN CONTENT 11.9 mL/dL (15.0-23.0); ABG OXYGEN SATURATION 98.7 % (95.0-98.0); ABG OXYHEMOGLOBIN 97.4 % (94.0-100.0); ABG TOTAL HEMOGLOBIN 8.5 G/dL (12.0-18.0)
[2018-08-13 09:59] LABS: ABG A-A DIFF O2 543.7 mmHg (10-20.0); O2 DEVICE,BLOOD GAS VENTILATOR (ROOM AIR); PEEP,BG 5 cm H2O; VT, ABG 350 ml
[2018-08-13 11:50] LABS: GLUCOSE,POINT OF CARE 192 MG/DL (70-110)
[2018-08-13 11:50] LABS: GLUCOSE,POINT OF CARE 190 MG/DL (70-110)
[2018-08-13 11:50] LABS: GLUCOSE,POINT OF CARE 152 MG/DL (70-110)
[2018-08-13 12:35] LABS: GLUCOSE,POINT OF CARE 182 MG/DL (70-110)
[2018-08-13] MEDS ORDERED: HEPARIN SODIUM,PORCINE 1,000 UNITS/ML VIAL ONE (12:53)
[2018-08-13] MEDS ORDERED: HEPARIN SODIUM,PORCINE 1,000 UNITS/ML VIAL IVP ONE ×4 (13:30→20:17)
[2018-08-13] MEDS: FentaNYL CITRATE PF 500 MCG in DEXTROSE 5%-WATER 90 ML IV PRN ×2 (15:17→23:33)
[2018-08-13] MEDS ORDERED: SODIUM CHLORIDE 0.9% 2,000 ML IV ONE (16:13)
[2018-08-13] MEDS ORDERED: ETOMIDATE 2 MG/ML 10 ML VIAL IV ONE (16:35)
[2018-08-13 18:09] LABS: GLUCOSE,POINT OF CARE 147 MG/DL (70-110)
[2018-08-13] MEDS: ACETAMINOPHEN 325 MG TABLET PO PRN (23:25)
[2018-08-14] VITALS: BP 105/56
[2018-08-14] MEDS: PROPOFOL 1000 MG/ISO-OSM 100 ML IV SCH (01:45)
[2018-08-14] MEDS ORDERED: SODIUM CHLORIDE 0.9% 250 ML IV ONE (01:48)
[2018-08-14] MEDS: NOREPINEPHRINE 4 MG/D5%-WATER 250 ML IV PRN (02:33)
[2018-08-14] MEDS: IPRATROPIUM BROMIDE 0.5 MG/2.5 ML NEB SOLUTION NEB SCH ×6 (03:37→23:17)
[2018-08-14] MEDS: ALBUTEROL SULFATE 2.5 MG/0.5 ML NEB SOLUTION NEB SCH ×6 (03:37→23:16)
[2018-08-14 04:00] VITALS: BP 118/47
[2018-08-14 04:29] LABS: GLUCOSE,POINT OF CARE 90 MG/DL (70-110)
[2018-08-14 04:37] LABS: BASOPHILS % (AUTO) 0.5 % (0.0-2.0); EOSINOPHILS % (AUTO) 2.7 % (1.0-6.0); HEMATOCRIT 24.1 % (41-53); HEMOGLOBIN 8.1 g/dL (13.5-17.5); LYMPHOCYTES # (AUTO) 0.8 K/uL (1.0-4.8); LYMPHOCYTES % (AUTO) 8.6 % (22.0-44.0); MEAN CORPUSCULAR HEMOGLOBIN 28.9 pg (26.0-34.0); MEAN CORPUSCULAR HGB CONC 33.7 G/dL (31.0-37.0); MEAN CORPUSCULAR VOLUME 86 fL (80-100); MONOCYTES # (AUTO) 0.7 K/uL (0.1-1.0); MONOCYTES % (AUTO) 7.5 % (2.0-9.0); NEUTROPHILS # (AUTO) 7.8 K/uL (1.8-7.7); NEUTROPHILS % (AUTO) 80.7 % (40.0-70.0); PLATELET COUNT (AUTO) 256 K/uL (150-450); RED BLOOD CELL COUNT(AUTO) 2.82 MIL/uL (4.50-5.90); RED CELL DISTRIBUTION WIDTH 14.8 % (11.5-14.5)
[2018-08-14] MEDS: INSULIN LISPRO 100 UNITS/ML SQ PRN ×3 (04:38→20:45)
[2018-08-14 04:47] LABS: CALCIUM, TOTAL 7.5 mg/dL (8.8-10.5); CREATININE 1.58 mg/dL (0.60-1.30); MAGNESIUM 1.5 mg/dL (1.80-2.40); PHOSPHORUS 2.9 mg/dL (2.5-4.9); POTASSIUM 3.3 mmol/L (3.5-5.1)
[2018-08-14 08:00] VITALS: BP 108/55
[2018-08-14] MEDS: HydrALAZINE HCL 25 MG TABLET PO SCH ×2 (09:00→21:00)
[2018-08-14] MEDS: EPOETIN ALFA 10,000 UNITS/ML VIAL SQ SCH (09:02)
[2018-08-14] MEDS: VITAMIN B COMP/VIT C/FOLIC ACID CAPSULE GT SCH (09:02)
[2018-08-14] MEDS: BusPIRone HCL 15 MG TABLET PO SCH ×4 (09:02→20:11)
[2018-08-14] MEDS: PANTOPRAZOLE SODIUM 40 MG/VIAL IVP SCH (09:02)
[2018-08-14] MEDS: MetroNIDAZOLE 500 MG TABLET PO SCH ×2 (09:02→16:23)
[2018-08-14] MEDS: DOCUSATE SODIUM 100 MG CAPSULE PO SCH ×2 (09:03→20:11)
[2018-08-14] MEDS: GABAPENTIN 400 MG CAPSULE PO SCH ×3 (09:03→20:12)
[2018-08-14] MEDS: AMYLASE/LIPASE/PROTEASE 60/12/38 MU DR CAPSULE PO SCH ×3 (09:03→16:23)
[2018-08-14] MEDS ORDERED: SODIUM CHLORIDE 0.9% 500 ML IV ONE (09:38)
[2018-08-14] MEDS: PROPOFOL 1000 MG/ISO-OSM 100 ML IV PRN ×2 (10:52→16:23)
[2018-08-14] MEDS: FentaNYL CITRATE PF 500 MCG in DEXTROSE 5%-WATER 90 ML IV PRN ×2 (10:52→22:12)
[2018-08-14 11:08] LABS: ABG A-A DIFF O2 434.3 mmHg (10-20.0); ABG BASE EXCESS 0.3 mmol/L (-2.0-3.0); ABG HCO3 24.2 mmol/L (22.0-26.0); ABG METHEMOGLOBIN 0.2 % (0.0-1.5); ABG OXYGEN CONTENT 11.7 mL/dL (15.0-23.0); ABG OXYGEN SATURATION 92.5 % (95.0-98.0); ABG OXYHEMOGLOBIN 90.5 % (94.0-100.0); ABG TOTAL HEMOGLOBIN 9.1 G/dL (12.0-18.0); SOURCE, BLOOD GAS ARTERIAL; TEMPERATURE, FAHRENHEIT, BG 99.8 FAHREN (96.0-98.6)
[2018-08-14 11:10] LABS: ABG PCO2 60 mmHg (35-45); ABG PH 7.276 (7.350-7.450); O2 DEVICE,BLOOD GAS VENTILATOR (ROOM AIR); PEEP,BG 5 cm H2O; SITE, BLOOD GAS ARTERIAL LINE; VT, ABG 450 ml
[2018-08-14] MEDS: MEROPENEM 500 MG in SODIUM CHLORIDE 0.9% 50 ML IV SCH (11:37)
[2018-08-14] MEDS: ACETAMINOPHEN 325 MG TABLET PO PRN ×2 (11:38→20:12)
[2018-08-14 12:00] VITALS: BP 110/36
[2018-08-14 13:24] LABS: ABG A-A DIFF O2 367.7 mmHg (10-20.0); ABG BASE EXCESS -2.8 mmol/L (-2.0-3.0); ABG HCO3 22.3 mmol/L (22.0-26.0); ABG METHEMOGLOBIN 0.2 % (0.0-1.5); ABG OXYGEN CONTENT 12.6 mL/dL (15.0-23.0); ABG OXYGEN SATURATION 99.1 % (95.0-98.0); ABG OXYHEMOGLOBIN 97.9 % (94.0-100.0); ABG PCO2 42 mmHg (35-45); ABG TOTAL HEMOGLOBIN 8.9 G/dL (12.0-18.0); PO2, ARTERIAL BG 155.3 mmHg (92.0-100.0); SOURCE, BLOOD GAS ARTERIAL; TEMPERATURE, FAHRENHEIT, BG 101.1 FAHREN (96.0-98.6)
[2018-08-14 13:25] LABS: O2 DEVICE,BLOOD GAS VENTILATOR (ROOM AIR); PEEP,BG 8 cm H2O; SITE, BLOOD GAS ARTERIAL LINE; VT, ABG 475 ml
[2018-08-14 16:00] VITALS: BP 133/56
[2018-08-14] MEDS ORDERED: VANCOMYCIN HCL 1 GM/D5% WATER 200 ML IV ONE (17:00)
[2018-08-14] MEDS ORDERED: DOPamine HCL/D5W 400 MG/250 ML IV BAG IV ONE (17:37)
[2018-08-14] MEDS ORDERED: EPINEPHrine 1:10,000 [1 MG/10 ML] SYRINGE IVP ONE (17:37)
[2018-08-14 20:00] VITALS: BP 122/51
[2018-08-14 21:49] LABS: GLUCOSE,POINT OF CARE 142 MG/DL (70-110)
[2018-08-15] VITALS: BP 103/39
[2018-08-15] MEDS: MetroNIDAZOLE 500 MG TABLET PO SCH ×4 (00:10→23:35)
[2018-08-15] MEDS: MEROPENEM 500 MG in SODIUM CHLORIDE 0.9% 50 ML IV SCH ×3 (00:11→23:35)
[2018-08-15] MEDS: PROPOFOL 1000 MG/ISO-OSM 100 ML IV PRN ×4 (02:49→21:11)
[2018-08-15] MEDS: ALBUTEROL SULFATE 2.5 MG/0.5 ML NEB SOLUTION NEB SCH ×5 (03:42→18:50)
[2018-08-15] MEDS: IPRATROPIUM BROMIDE 0.5 MG/2.5 ML NEB SOLUTION NEB SCH ×5 (03:42→18:49)
[2018-08-15 04:00] VITALS: BP 99/36
[2018-08-15 06:29] LABS: GLUCOSE,POINT OF CARE 148 MG/DL (70-110)
[2018-08-15 06:29] LABS: GLUCOSE,POINT OF CARE 107 MG/DL (70-110)
[2018-08-15 06:29] LABS: GLUCOSE,POINT OF CARE 170 MG/DL (70-110)
[2018-08-15] MEDS: INSULIN LISPRO 100 UNITS/ML SQ PRN ×3 (06:29→23:36)
[2018-08-15 07:14] LABS: CALCIUM, TOTAL 7.6 mg/dL (8.8-10.5); CREATININE 2.55 mg/dL (0.60-1.30); MAGNESIUM 1.8 mg/dL (1.80-2.40); PHOSPHORUS 4.6 mg/dL (2.5-4.9); POTASSIUM 3.3 mmol/L (3.5-5.1)
[2018-08-15 08:00] VITALS: BP 118/45
[2018-08-15] MEDS ORDERED: SODIUM CHLORIDE 0.9% 250 ML IV ONE ×2 (08:27→20:17)
[2018-08-15] MEDS ORDERED: SODIUM CHLORIDE 0.9% 500 ML IV ONE ×3 (08:28→20:17)
[2018-08-15] MEDS: BusPIRone HCL 15 MG TABLET PO SCH ×4 (08:31→21:11)
[2018-08-15] MEDS: PANTOPRAZOLE SODIUM 40 MG/VIAL IVP SCH (08:32)
[2018-08-15] MEDS: AMYLASE/LIPASE/PROTEASE 60/12/38 MU DR CAPSULE PO SCH ×3 (08:32→15:45)
[2018-08-15] MEDS: ACETAMINOPHEN 325 MG TABLET PO PRN ×3 (08:32→21:12)
[2018-08-15] MEDS: VITAMIN B COMP/VIT C/FOLIC ACID CAPSULE GT SCH (08:33)
[2018-08-15] MEDS: GABAPENTIN 400 MG CAPSULE PO SCH (08:33)
[2018-08-15] MEDS: DOCUSATE SODIUM 100 MG CAPSULE PO SCH ×2 (08:33→21:11)
[2018-08-15] MEDS: HydrALAZINE HCL 25 MG TABLET PO SCH ×2 (09:00→20:07)
[2018-08-15] MEDS ORDERED: SODIUM CHLORIDE 0.9% 2,000 ML IV ONE (09:29)
[2018-08-15] MEDS: FentaNYL CITRATE PF 500 MCG in DEXTROSE 5%-WATER 90 ML IV PRN ×3 (10:32→21:17)
[2018-08-15] MEDS: NOREPINEPHRINE 4 MG/D5%-WATER 250 ML IV PRN (10:33)
[2018-08-15 12:00] VITALS: BP 118/39
[2018-08-15] MEDS: GABAPENTIN 300 MG CAPSULE PO SCH ×2 (15:43→21:11)
[2018-08-15 16:00] VITALS: BP 125/43
[2018-08-15 19:38] LABS: GLUCOSE,POINT OF CARE 145 MG/DL (70-110)
[2018-08-15 19:38] LABS: GLUCOSE,POINT OF CARE 116 MG/DL (70-110)
[2018-08-15 19:38] LABS: GLUCOSE,POINT OF CARE 168 MG/DL (70-110)
[2018-08-15 20:00] VITALS: BP 132/55
[2018-08-16] VITALS: BP 135/56
[2018-08-16] MEDS: FentaNYL CITRATE PF 500 MCG in DEXTROSE 5%-WATER 90 ML IV PRN ×3 (02:41→17:55)
[2018-08-16] MEDS: PROPOFOL 1000 MG/ISO-OSM 100 ML IV PRN ×4 (02:41→19:52)
[2018-08-16 04:00] VITALS: BP 133/55
[2018-08-16 04:49] LABS: EOSINOPHILS % (AUTO) 5.8 % (1.0-6.0); HEMATOCRIT 23.4 % (41-53); LYMPHOCYTES # (AUTO) 1.1 K/uL (1.0-4.8); MEAN CORPUSCULAR HGB CONC 34.1 G/dL (31.0-37.0); MEAN CORPUSCULAR VOLUME 85 fL (80-100); MONOCYTES # (AUTO) 1.2 K/uL (0.1-1.0); MONOCYTES % (AUTO) 10.8 % (2.0-9.0); NEUTROPHILS # (AUTO) 7.9 K/uL (1.8-7.7); NEUTROPHILS % (AUTO) 72.4 % (40.0-70.0); PLATELET COUNT (AUTO) 375 K/uL (150-450); RED BLOOD CELL COUNT(AUTO) 2.75 MIL/uL (4.50-5.90); RED CELL DISTRIBUTION WIDTH 15.2 % (11.5-14.5)
[2018-08-16 05:01] LABS: CALCIUM, TOTAL 7.5 mg/dL (8.8-10.5); CREATININE 1.97 mg/dL (0.60-1.30); MAGNESIUM 1.6 mg/dL (1.80-2.40); PHOSPHORUS 3.5 mg/dL (2.5-4.9); POTASSIUM 3.3 mmol/L (3.5-5.1)
[2018-08-16 05:54] LABS: GLUCOSE,POINT OF CARE 116 MG/DL (70-110)
[2018-08-16 05:54] LABS: GLUCOSE,POINT OF CARE 148 MG/DL (70-110)
[2018-08-16 08:00] VITALS: BP 142/63
[2018-08-16] MEDS ORDERED: MAGNESIUM SULFATE 1 GM in DEXTROSE 5%-WATER 50 ML IV ONE (08:00)
[2018-08-16] MEDS ORDERED: POTASSIUM CHLORIDE 10 MEQ ER TABLET PO ONE (08:15)
[2018-08-16] MEDS ORDERED: POTASSIUM CHLORIDE 10% 40 MEQ/30 ML LIQUID UDCUP NG ONE (08:30)
[2018-08-16] MEDS: DOCUSATE SODIUM 100 MG CAPSULE PO SCH ×2 (09:00→19:51)
[2018-08-16] MEDS: HydrALAZINE HCL 25 MG TABLET PO SCH ×2 (09:00→19:50)
[2018-08-16] MEDS: VITAMIN B COMP/VIT C/FOLIC ACID CAPSULE GT SCH (09:19)
[2018-08-16] MEDS: MetroNIDAZOLE 500 MG TABLET PO SCH ×2 (09:19→16:31)
[2018-08-16] MEDS: AMYLASE/LIPASE/PROTEASE 60/12/38 MU DR CAPSULE PO SCH ×3 (09:19→16:31)
[2018-08-16] MEDS: GABAPENTIN 300 MG CAPSULE PO SCH ×3 (09:19→19:51)
[2018-08-16] MEDS: BusPIRone HCL 15 MG TABLET PO SCH ×4 (09:19→19:51)
[2018-08-16] MEDS: PANTOPRAZOLE SODIUM 40 MG/VIAL IVP SCH (09:20)
[2018-08-16] MEDS: EPOETIN ALFA 10,000 UNITS/ML VIAL SQ SCH (09:20)
[2018-08-16 12:00] VITALS: BP 122/41
[2018-08-16] MEDS: MEROPENEM 500 MG in SODIUM CHLORIDE 0.9% 50 ML IV SCH (12:09)
[2018-08-16 13:04] LABS: ABG A-A DIFF O2 240.3 mmHg (10-20.0); ABG BASE EXCESS -0.8 mmol/L (-2.0-3.0); ABG CARBOXYHEMOGLOBIN 1.3 % (0.0-1.5); ABG HCO3 23.9 mmol/L (22.0-26.0); ABG METHEMOGLOBIN 0.2 % (0.0-1.5); ABG OXYGEN CONTENT 11.6 mL/dL (15.0-23.0); ABG OXYGEN SATURATION 94.6 % (95.0-98.0); ABG OXYHEMOGLOBIN 93.2 % (94.0-100.0); ABG PCO2 39 mmHg (35-45); ABG PH 7.407 (7.350-7.450); ABG TOTAL HEMOGLOBIN 8.8 G/dL (12.0-18.0); PO2, ARTERIAL BG 72.1 mmHg (92.0-100.0); SOURCE, BLOOD GAS ARTERIAL; TEMPERATURE, FAHRENHEIT, BG 99.2 FAHREN (96.0-98.6)
[2018-08-16 13:06] LABS: O2 DEVICE,BLOOD GAS VENTILATOR (ROOM AIR); SITE, BLOOD GAS ARTERIAL LINE
[2018-08-16 13:07] LABS: PEEP,BG 8 cm H2O; SPONTANEOUS VT, BG 460 ml; VT, ABG 475 ml
[2018-08-16] MEDS: INSULIN LISPRO 100 UNITS/ML SQ PRN (13:14)
[2018-08-16 14:20] LABS: CALCIUM, TOTAL 7.8 mg/dL (8.8-10.5); CREATININE 2.12 mg/dL (0.60-1.30); MAGNESIUM 1.9 mg/dL (1.80-2.40); PHOSPHORUS 3.7 mg/dL (2.5-4.9); POTASSIUM 3.3 mmol/L (3.5-5.1)
[2018-08-16] MEDS ORDERED: POTASSIUM CHL 10 MEQ/WATER 50 ML IV ONE (14:45)
[2018-08-16] MEDS ORDERED: LEVOFLOXACIN 750 MG/D5% WATER 150 ML IV ONE (15:15)
[2018-08-16] MEDS ORDERED: *CLINICAL-TOBRAMYCIN DOSING CLINICAL ONE ×2 (15:15→15:30)
[2018-08-16 15:28] LABS: GLUCOSE,POINT OF CARE 163 MG/DL (70-110)
[2018-08-16] MEDS ORDERED: TOBRAMYCIN SULFATE IV PRN (15:45)
[2018-08-16] MEDS ORDERED: WATER IV ONE (15:45)
[2018-08-16] MEDS ORDERED: TOBRAMYCIN SULFATE IV ONE (15:45)
[2018-08-16] MEDS ORDERED: DEXTROSE 5% IV ONE (15:45)
[2018-08-16] MEDS ORDERED: WATER IV PRN (15:45)
[2018-08-16] MEDS ORDERED: DEXTROSE 5% IV PRN (15:45)
[2018-08-16 16:00] VITALS: BP 107/53
[2018-08-16] MEDS ORDERED: VANCOMYCIN HCL 1 GM/D5% WATER 200 ML IV ONE (17:00)
[2018-08-16 18:39] LABS: GLUCOSE,POINT OF CARE 148 MG/DL (70-110)
[2018-08-16] MEDS ORDERED: SODIUM CHLORIDE 0.9% 250 ML IV ONE (19:47)
[2018-08-16 20:00] VITALS: BP 116/60
[2018-08-17] VITALS: BP 115/58
[2018-08-17] MEDS: MetroNIDAZOLE 500 MG TABLET PO SCH ×3 (00:14→16:00)
[2018-08-17] MEDS: FentaNYL CITRATE PF 500 MCG in DEXTROSE 5%-WATER 90 ML IV PRN ×2 (00:15→10:43)
[2018-08-17] MEDS: PROPOFOL 1000 MG/ISO-OSM 100 ML IV PRN ×3 (00:16→13:59)
[2018-08-17] MEDS: INSULIN LISPRO 100 UNITS/ML SQ PRN ×3 (00:17→12:20)
[2018-08-17 01:49] LABS: APPEARANCE,URINE TURBID (CLEAR); GLUCOSE, URINE (UA) NEGATIVE (NEGATIVE); KETONES,URINE TRACE mg/dL (NEGATIVE); LEUKOCYTE ESTERASE ,URINE MODERATE (NEGATIVE); NITRATE,URINE NEGATIVE (NEGATIVE); OCCULT BLOOD,URINE NEGATIVE (NEGATIVE); PROTEIN,URINE SEE CONFIRM (NEGATIVE); UROBILINOGEN,URINE 0.2 mg/dL (<=1.0)
[2018-08-17 01:50] LABS: BILIRUBIN,URINE PRELIM. POSITIVE (NEGATIVE)
[2018-08-17 02:06] LABS: BACTERIA,URINE Moderate /HPF (None Seen)
[2018-08-17 02:07] LABS: AMORPHOUS SEDIMENT,UR Few /LPF (None Seen); SQUAMOUS EPITHELIAL CELL,UR None Seen /LPF (None Seen); WBC,URINE 26-50 /HPF (0-5)
[2018-08-17 02:08] LABS: SULFOSALICYLIC ACID,URINE 3+ (Negative)
[2018-08-17 04:00] VITALS: BP 109/56
[2018-08-17 05:13] LABS: CALCIUM, TOTAL 7.7 mg/dL (8.8-10.5); CREATININE 2.56 mg/dL (0.60-1.30); PHOSPHORUS 3.9 mg/dL (2.5-4.9); POTASSIUM 3.8 mmol/L (3.5-5.1)
[2018-08-17 05:50] LABS: GLUCOSE,POINT OF CARE 154 MG/DL (70-110)
[2018-08-17 05:50] LABS: GLUCOSE,POINT OF CARE 192 MG/DL (70-110)
[2018-08-17 08:00] VITALS: BP 113/61
[2018-08-17] MEDS: AMYLASE/LIPASE/PROTEASE 60/12/38 MU DR CAPSULE PO SCH ×3 (08:00→17:30)
[2018-08-17] MEDS: BusPIRone HCL 15 MG TABLET PO SCH ×3 (09:00→16:00)
[2018-08-17] MEDS: HydrALAZINE HCL 25 MG TABLET PO SCH (09:00)
[2018-08-17] MEDS ORDERED: DEXTROSE 5% IV PRN (11:45)
[2018-08-17] MEDS ORDERED: WATER IV PRN (11:45)
[2018-08-17] MEDS ORDERED: TOBRAMYCIN SULFATE IV PRN (11:45)
[2018-08-17 12:54] VITALS: BP 98/46
[2018-08-17 13:19] LABS: GLUCOSE,POINT OF CARE 145 MG/DL (70-110)
[2018-08-17] MEDS ORDERED: WATER IV ONE (14:00)
[2018-08-17] MEDS ORDERED: DEXTROSE 5% IV ONE (14:00)
[2018-08-17] MEDS ORDERED: TOBRAMYCIN SULFATE IV ONE (14:00)
[2018-08-17] MEDS: PANTOPRAZOLE SODIUM 40 MG/VIAL IVP SCH (14:14)
[2018-08-17] MEDS: DOCUSATE SODIUM 100 MG CAPSULE PO SCH (14:15)
[2018-08-17] MEDS: VITAMIN B COMP/VIT C/FOLIC ACID CAPSULE GT SCH (14:15)
[2018-08-17] MEDS: GABAPENTIN 300 MG CAPSULE PO SCH ×2 (14:16→16:00)
[2018-08-17 16:00] VITALS: BP 115/58
[2018-08-17] MEDS ORDERED: MANNITOL 25%-12.5 GM/50 ML VIAL IVP ONE (16:52)
[2018-08-17] MEDS ORDERED: HEPARIN SODIUM,PORCINE 1,000 UNITS/ML VIAL IVP ONE (16:52)
[2018-08-17 18:54] LABS: GLUCOSE,POINT OF CARE 126 MG/DL (70-110)
[2018-08-18] MEDS ORDERED: LEVOFLOXACIN 500 MG/D5% WATER 100 ML IV SCH (16:00)
== END 2018-08-17 19:35 | DRG 720 ==
LOC: EMS 11:56 → 5S 16:07 → ICU 07-30 12:20 → 5N 08-04 14:15 → 5S 08-04 15:41 → ICU 08-08 10:30
PROVIDERS: ADMIT Hospitalist; ATTEND Hospitalist
PROC: 5A12012 Performance of Cardiac Output, Single, Manual (ICD-10-PCS; principal; 2018-07-30)
PROC: 5A1955Z Respiratory Ventilation, Greater than 96 Consecutive Hours (ICD-10-PCS; 2018-07-30)
PROC: 0BH17EZ Insertion of Endotracheal Airway into Trachea, Via Natural or Artificial Opening (ICD-10-PCS; 2018-07-30)
PROC: 05HM33Z Insertion of Infusion Device into Right Internal Jugular Vein, Percutaneous Approach (ICD-10-PCS; 2018-07-30)
PROC: B543ZZA Ultrasonography of Right Jugular Veins, Guidance (ICD-10-PCS; 2018-07-30)
PROC: 04HY32Z Insertion of Monitoring Device into Lower Artery, Percutaneous Approach (ICD-10-PCS; 2018-07-30)
PROC: B44FZZZ Ultrasonography of Right Lower Extremity Arteries (ICD-10-PCS; 2018-07-30)
PROC: 30233N1 Transfusion of Nonautologous Red Blood Cells into Peripheral Vein, Percutaneous Approach (ICD-10-PCS; 2018-07-31)
PROC: 05HY33Z Insertion of Infusion Device into Upper Vein, Percutaneous Approach (ICD-10-PCS; 2018-08-01)
PROC: B54MZZA Ultrasonography of Right Upper Extremity Veins, Guidance (ICD-10-PCS; 2018-08-01)
PROC: 5A1D70Z Performance of Urinary Filtration, Intermittent, Less than 6 Hours Per Day (ICD-10-PCS; 2018-08-06)
PROC: 5A09357 Assistance with Respiratory Ventilation, Less than 24 Consecutive Hours, Continuous Positive Airway Pressure (ICD-10-PCS; 2018-08-07)
PROC: 5A1D70Z Performance of Urinary Filtration, Intermittent, Less than 6 Hours Per Day (ICD-10-PCS; 2018-08-07)
PROC: 5A09357 Assistance with Respiratory Ventilation, Less than 24 Consecutive Hours, Continuous Positive Airway Pressure (ICD-10-PCS; 2018-08-08)
PROC: 5A09357 Assistance with Respiratory Ventilation, Less than 24 Consecutive Hours, Continuous Positive Airway Pressure (ICD-10-PCS; 2018-08-09)
PROC: 5A1D70Z Performance of Urinary Filtration, Intermittent, Less than 6 Hours Per Day (ICD-10-PCS; 2018-08-09)
PROC: 5A09357 Assistance with Respiratory Ventilation, Less than 24 Consecutive Hours, Continuous Positive Airway Pressure (ICD-10-PCS; 2018-08-10)
PROC: 5A09357 Assistance with Respiratory Ventilation, Less than 24 Consecutive Hours, Continuous Positive Airway Pressure (ICD-10-PCS; 2018-08-11)
PROC: 5A1D70Z Performance of Urinary Filtration, Intermittent, Less than 6 Hours Per Day (ICD-10-PCS; 2018-08-11)
PROC: 04HY32Z Insertion of Monitoring Device into Lower Artery, Percutaneous Approach (ICD-10-PCS; 2018-08-12)
PROC: B44FZZZ Ultrasonography of Right Lower Extremity Arteries (ICD-10-PCS; 2018-08-12)
PROC: 06HM33Z Insertion of Infusion Device into Right Femoral Vein, Percutaneous Approach (ICD-10-PCS; 2018-08-12)
PROC: B54BZZA Ultrasonography of Right Lower Extremity Veins, Guidance (ICD-10-PCS; 2018-08-12)
PROC: 5A09357 Assistance with Respiratory Ventilation, Less than 24 Consecutive Hours, Continuous Positive Airway Pressure (ICD-10-PCS; 2018-08-12)
PROC: 5A1D70Z Performance of Urinary Filtration, Intermittent, Less than 6 Hours Per Day (ICD-10-PCS; 2018-08-12)
PROC: 05HN33Z Insertion of Infusion Device into Left Internal Jugular Vein, Percutaneous Approach (ICD-10-PCS; 2018-08-13)
PROC: B544ZZA Ultrasonography of Left Jugular Veins, Guidance (ICD-10-PCS; 2018-08-13)
PROC: 5A1D70Z Performance of Urinary Filtration, Intermittent, Less than 6 Hours Per Day (ICD-10-PCS; 2018-08-13)
PROC: 5A1D70Z Performance of Urinary Filtration, Intermittent, Less than 6 Hours Per Day (ICD-10-PCS; 2018-08-15)
DX: A41.9 Sepsis, unspecified organism (principal); N17.0 Acute kidney failure with tubular necrosis; I46.9 Cardiac arrest, cause unspecified; J69.0 Pneumonitis due to inhalation of food and vomit; G92 Toxic encephalopathy; J96.90 Respiratory failure, unspecified, unspecified whether with hypoxia or hypercapnia; E43 Unspecified severe protein-calorie malnutrition; R65.21 Severe sepsis with septic shock; J96.01 Acute respiratory failure with hypoxia; K31.84 Gastroparesis; E10.43 Type 1 diabetes mellitus with diabetic autonomic (poly)neuropathy; D69.6 Thrombocytopenia, unspecified; E10.21 Type 1 diabetes mellitus with diabetic nephropathy; N18.6 End stage renal disease; E87.1 Hypo-osmolality and hyponatremia; B96.1 Klebsiella pneumoniae [K. pneumoniae] as the cause of diseases classified elsewhere; Z88.5 Allergy status to narcotic agent; D63.8 Anemia in other chronic diseases classified elsewhere; E10.22 Type 1 diabetes mellitus with diabetic chronic kidney disease; E10.319 Type 1 diabetes mellitus with unspecified diabetic retinopathy without macular edema; E83.39 Other disorders of phosphorus metabolism; E83.42 Hypomagnesemia; E86.0 Dehydration; E87.5 Hyperkalemia; E87.6 Hypokalemia; F32.9 Major depressive disorder, single episode, unspecified; F41.9 Anxiety disorder, unspecified; G89.29 Other chronic pain; I12.0 Hypertensive chronic kidney disease with stage 5 chronic kidney disease or end stage renal disease; N31.9 Neuromuscular dysfunction of bladder, unspecified; N39.0 Urinary tract infection, site not specified; Z16.12 Extended spectrum beta lactamase (ESBL) resistance; E10.65 Type 1 diabetes mellitus with hyperglycemia; Z51.5 Encounter for palliative care; Z66 Do not resuscitate; Z79.4 Long term (current) use of insulin; Z82.49 Family history of ischemic heart disease and other diseases of the circulatory system; Z83.3 Family history of diabetes mellitus; Z90.411 Acquired partial absence of pancreas; Z91.19 Patient's noncompliance with other medical treatment and regimen; Z99.2 Dependence on renal dialysis; Z68.1 Body mass index [BMI] 19.9 or less, adult
CPT/HCPCS: 36245; 70450; 71250; 72192; 74018; 74150; 76937; 82805; 83540; 83550; 83605; 83735; 84100; 84145; 84443; 86850; 86900; 86901; 86920; 87015; 87040; 87070; 87081; 87086; 87205; 87206; 87340; 92610; 92950; 93005; 93306; 94002; 94003; 94640; 94644; 94660; 94799; 96365; 96366; 96375; 97163; 97530; C9113; G0238; G0378; G0480; G0481; J0171; J0330; J0360; J0461; J0610; J0696; J0885; J1170; J1265; J1644; J1815; J1885; J1956; J2060; J2150; J2185; J2310; J2405; J2704; J2997; J3010; J3260; J3370; J3475; J3480; J3490; J7030; J7040; J7050; J7060; P9016; P9046; P9047